=== PATIENT | male | born 1955 | race Caucasian/White ===

== ENCOUNTER 2019-03-26 00:23 | Day surgery (SDC) | payer MEDICARE, SELFPAY ==
[2019-03-09 15:22] VITALS: BMI 26.9
--- NOTE | 2019-03-25 17:14 | PM.SD ---
Same Day Admit/Disch: HPI History of Present Illness Chief complaint: Right Inguinal Hernia Narrative: Fred Salinas is a 64 year old male who was seen in the office with a 3 month history a right inguinal hernia. It is not painful but is bothersome. He is taken to surgery now for repair. [facility] Past Medical History Medical History (Updated 03/26/19 @ 11:34 by Rai Edwards MD) Arthritis Chronic kidney disease, stage 3 (moderate) High cholesterol History of blood clots HTN (hypertension) Hypertensive chronic kidney disease with stage 1 through stage 4 chronic kidney disease, or unspecified chronic kidney disease Surgical History Surgical History History of hernia repair Hx of cholecystectomy (~1999) Family History Family History Father Hypertension Family history of elevated blood lipids Family history of cardiovascular disease, Onset Age: 86 Mother Hypertension Family history of kidney disease Familial primary pulmonary hypertension Grandparent Diabetes mellitus Social History Social History Smoking status: Never smoker Alcohol intake: never Gender identity (if verbalized by the patient): Male Same Day Admit/Disch: Med Pre-admit Medications Home Medications Medication Instructions Recorded Confirmed Type atorvastatin 10 mg tablet 10 mg PO DAILY #90 tablet 01/07/19 03/26/19 Rx losartan 50 mg tablet 50 mg PO DAILY #90 tablet 01/07/19 03/26/19 Rx cholecalciferol (vitamin D3) 2,000 2,000 unit PO DAILY 02/03/19 03/26/19 History unit tablet hydrocodone-acetaminophen 1 - 2 tablet PO Q6H PRN #7 tablet 03/26/19 Rx ibuprofen 600 mg PO Q6H PRN #14 tablet 03/26/19 Rx Exam Const: General: cooperative, comfortable, no acute distress, alert and awake; No confusion Orientation/consciousness: No confusion HENMT: Head: normocephalic, atraumatic, no contusions and no scalp lesions Ears: external ears normal General nose exam: Normal external nose present Face and sinus: face symmetric and dry mucous membranes Mouth: Yes Normal oral and palatal mucosa present and Yes tongue normal Throat: posterior oropharynx normal Eyes: Conjunctivae: conjunctivae normal Sclera: sclerae normal Pupils: Equal, round and reactive pupils present EOM: EOMs intact bilaterally Neck: Neck: normal visual inspection, no lymphadenopathy, trachea midline, supple, nontender and no JVD Thyroid: abnormal thyroid Resp: Effort & Inspection: normal respiratory effort Auscultation: clear to auscultation bilaterally Cardio: Rate: regular rate Rhythm: regular rhythm GI: Inspection: normal to inspection GI Palp: Yes Soft to palpation, No Tenderness to palpation present (GI), No Hepatomegaly present and No Splenomegaly present Auscultation: normal bowel sounds and normoactive bowel sounds : Male General Exam: Yes hernia (Right inguinal bulge, pulses with cough, reducible) Penis: Yes normal penis Scrotum: scrotum normal Testes: Testes normal, no masses and no testicular tenderness Skin: General skin exam: normal color, turgor normal and no erythema Lesions: no lesions Rashes: no rashes Trauma: no lacerations or abrasions Neuro: General: No confusion Cranial nerves: Yes Equal, round and reactive pupils present Motor exam (neuro): Motor abnormalities not present Extrem: General: no clubbing, cyanosis or edema and edema Psych: Affect: normal affect Thought process: Normal thought process present Insight: Good insight present (Psych) DS: Summary Time Spent with Patient Time attestation: Total time spent providing and/or coordinating discharge services: DS: Diagnosis Admitting Diagnosis Admitting Diagnosis: Essential (primary) hypertension Discharge Diagnosis (1) Right inguinal hernia: Code(s): K40.90 - Unilateral i
--- NOTE | 2019-03-26 11:33 | WPDANESEPP ---
Anes - Eval Pre Procedure Procedure: Operation Date: 03/26/19 13:30 Proposed Procedures p Right Inguinal Hernia Repair - Toby Edgar MD Date/Time: 03/26/19 11:33 Pre Op Diagnosis: Right Inguinal Hernia Patient Data Age: 64 Gender: M Height: 1.88 m Weight: 95.25 kg Allergies Allergy/AdvReac Type Severity Reaction Status Date / Time lisinopril AdvReac Unknown cough Verified 03/09/19 15:21 Home Medications Medication Instructions Recorded Confirmed Type atorvastatin 10 mg tablet 10 mg PO DAILY #90 tablet 01/07/19 03/09/19 Rx losartan 50 mg tablet 50 mg PO DAILY #90 tablet 01/07/19 03/09/19 Rx cholecalciferol (vitamin D3) 2,000 2,000 unit PO DAILY 02/03/19 03/09/19 History unit tablet Patient hx anesthesia problems: none Family hx anesthesia problems: none PMFSH Past Medical History Medical History (Updated 03/26/19 @ 11:34 by Rai Edwards MD) Arthritis Chronic kidney disease, stage 3 (moderate) High cholesterol History of blood clots HTN (hypertension) Hypertensive chronic kidney disease with stage 1 through stage 4 chronic kidney disease, or unspecified chronic kidney disease Surgical History Surgical History History of hernia repair Hx of cholecystectomy (~1999) Family History Family History Father Hypertension Family history of elevated blood lipids Family history of cardiovascular disease, Onset Age: 86 Mother Hypertension Family history of kidney disease Familial primary pulmonary hypertension Grandparent Diabetes mellitus Social History Social History Smoking status: Never smoker Alcohol intake: never Gender identity (if verbalized by the patient): Male Exam Day of Procedure 03/26/19 11:33
--- NOTE | 2019-03-26 11:59 | WPDHPUPDATE1 ---
History and Physical Update Update Date/Time: 03/26/19 11:59 History and Physical has been reviewed, including an updated exam of the patient. There are NO changes in the patient's condition. Risks, benefits, and alternatives have been discussed and questions answered. Patient agrees to proceed with procedure.
--- NOTE | 2019-03-26 12:01 | WPDANESEFPP ---
Anes - Eval Final PreProcedure Day of Procedure 03/26/19 12:01 Patient weight: overweight Heart: regular rate and rhythm Lungs: clear to auscultation and normal air movement Airway: Mallampati scale class II Neurological: alert and oriented Last oral intake: >/= 8 hours ASA classification: III Emergent: no Anesthetic plan: proceed Anesthesia type and monitoring: general GIVS Informed Consent: The patient's anesthetic plan and its attendant risks and benefits were discussed with the patient/family/POA. Questions were solicited and answers provided to the satisfaction of the patient/family/POA.
[2019-03-26] MEDS: LACTATED RINGERS 1,000 ML 30 ML IV CONT ×2 (12:30→15:10)
--- NOTE | 2019-03-26 12:44 | P.OP_ITS ---
Procedure Note - Detailed Date of procedure: 03/26/19 Pre-op diagnosis: Right Inguinal Hernia [ ] inguinal hernia Post-op diagnosis: other (Indirect hernia) Procedure performed: Repair of [ ] inguinal hernia with [6] cm Parietex hernia mesh system Description of procedure: The patient was taken to surgery and IV sedation was administered. The [ ] groin and genitalia were prepped and draped. Proposed incision was marked on the skin. Local was infiltrated into the skin and the deeper subcutaneous tissues. Incision was made and deepened through the subcutaneous. Crossing veins were cauterized and divided. Dissection was carried through Harmony's fascia down to the external oblique aponeurosis. The aponeurosis was exposed as was the external ring. Additional local anesthesia was infiltrated deep to the aponeurosis in the area of the spermatic cord and inguinal canal contents. The aponeurosis was opened laterally and extended medially through the external ring. The leaves of the aponeurosis were dissec bhavin free from the spermatic cord. The ileoinguinal nerve was carefully preserved throughout the dissection and was left attached to the spermatic cord. The cord was then mobilized medially on a [place] drain. The cord was dissected back to the internal ring. Dissection was then carried out in the anteromedial spermatic cord. The hernia sac was found and dissected free. The sac was opened so that I could place a finger within the hernia sac and facilitate this dissection. This opening was then closed with a running 3 0 Vicryl suture. The sac was then dissected back to a high dissection. It was dunked into the retroperitoneum. A [6 ] centimeter Parietex [place] was chosen. It was folded to form a plug. It was placed in the defect. The edges were sutured to the transversalis fascia with interrupted 3 0 Vicryl suture. The hernia defect was then partially closed with some additional 3 0 Vicryl suture. Patch was then cut to the appropriate size and placed over the inguinal canal floor. The lateral leaves were passed beyond the cord. The cord and ileoinguinal nerve were then laid over the patch. The external oblique aponeurosis was closed with interrupted 3 0 Vicryl suture. Harmony's fascia was closed with interrupted 3 0 Vicryl suture. The subcutaneous was closed with interrupted 4 0 Vicryl suture. Four 0 Vicryl subcuticular skin sutures were placed. The skin was closed finally with a running 4 0 Monocryl skin suture. The wound was dressed with Exofin surgical adhesive. The patient was awakened and taken to recovery in good condition. Sponge and needle counts were correct x2. Anesthesia: MAC and local (0.5% Marcaine with Exparel) Surgeon: Toby Edgar MD Estimated blood loss (mL): 5 Drains: No Packing: No Pathology: none sent Complications: None Condition: stable Disposition: PACU Findings: Indirect inguinal hernia. No sliding hernia was noted.
[2019-03-26] MEDS: ceFAZolin 2 GM/D5W 50 ML 2 GM/50 ML BAG IVPB (12:58)
--- NOTE | 2019-03-26 14:03 | P.OP_ITS ---
Procedure Note - Detailed Date of procedure: 03/26/19 Pre-op diagnosis: Right Inguinal Hernia Right inguinal hernia Post-op diagnosis: other (Direct inguinal hernia) Procedure performed: Right inguinal hernia repair with 8 centimeter Parietex hernia mesh system Description of procedure: The patient was taken to surgery and IV sedation was administered. The right groin and genitalia were prepped and draped. The pro posed incision was marked on the skin and then local anesthesia was infiltrated into the skin and the deeper subcutaneous tissues. Incision was made and dissection was carried down through Harmony's fascia to the external oblique aponeurosis. Crossing veins were cauterized and divided. The external oblique aponeurosis was then exposed as was the external ring. Additional local anesthetic was infiltrated deep to the aponeurosis in the area of the spermatic cord and inguinal canal contents. We then opened the external oblique aponeurosis laterally and extended this incision medially through the external ring. The leaves of the aponeurosis were freed from the underlying inguinal canal contents. Care was taken not to injure the ileoinguinal nerve which was dissected out and left attached to the spermatic cord. The spermatic cord was then mobilized medially on a [place] drain. It was mobilized back to the internal ring. The direct hernia was dissected free from the spermatic cord. It was dissected back to its neck. The sac was then incised circumferentially just off the neck. It was divided through the transversalis fascia circumferentially. The hernia sac was then dunked into the retroperitoneum. An 8 centimeter Parietex [place] was chosen. It was folded to form a plug. The plug was placed in the defect. The edges were sutured to the transversalis fascia with interrupted 3 0 Vicryl suture. The hernia defect was also partially closed with interrupted 3 0 Vicryl suture. The patch was then cut to the appropriate size. It was placed over the inguinal canal floor with the lateral leaves passing beyond the cord. The cord and ileoinguinal nerve were then laid over the patch. The external oblique aponeurosis was closed with interrupted 3 0 Vicryl suture. Harmony's fascia was closed with interrupted 3 0 Vicryl suture. Four 0 Vicryl subcutaneous and subcuticular skin stitches were placed. The skin was finally closed with a running 4 0 Monocryl skin suture. The wound was dressed with Exofin surgical adhesive. Patient was awakened and taken to recovery in good condition. Sponge and needle counts were correct x2. Implants: 8 cm Parietex hernia mesh system Anesthesia: MAC and local (0.5% Marcaine mixed with Exparel) Surgeon: Toby Edgar MD Industrial Organizational Psychologist: Kelly ROSARIO Estimated blood loss (mL): 5 Drains: No Packing: No Pathology: none sent Complications: None Condition: stable Disposition: PACU Findings: Large direct inguinal hernia
[2019-03-26 14:12] VITALS: BP 117/60; PULSE 61; RESP 24; O2SAT 98
[2019-03-26 14:30] VITALS: BP 129/66; PULSE 56; RESP 14
[2019-03-26 15:00] VITALS: BP 143/71; PULSE 50; RESP 14
[2019-03-26 15:30] VITALS: BP 148/78; PULSE 49; RESP 14
== END 2019-03-26 15:55 | disposition home or self-care (01) ==
PROVIDERS: Visit Provider Surgery
PROC: (CPT 49505; principal; 2019-03-26 13:30)
DX: K40.90 Unilateral inguinal hernia, without obstruction or gangrene, not specified as recurrent (principal); I12.9 Hypertensive chronic kidney disease with stage 1 through stage 4 chronic kidney disease, or unspecified chronic kidney disease; N18.3 Chronic kidney disease, stage 3 (moderate); E78.00 Pure hypercholesterolemia, unspecified; M19.90 Unspecified osteoarthritis, unspecified site; Z86.718 Personal history of other venous thrombosis and embolism
CPT/HCPCS: 49505; A9270; C1781; C9290; J0690; J2250; J2704; J3010; J7120

== ENCOUNTER 2019-10-03 00:53 | Outpatient (CLI) | payer MEDICARE, SELFPAY ==
[2019-10-03 18:11] LABS: SARS-CoV-2 RNA PCR Positive
== END 2019-10-03 00:54 | disposition home or self-care (01) ==
LOC: ANHCOVIDDT 00:56
PROVIDERS: PCP Family Medicine; Visit Provider Internal Medicine Gastroenterology
DX: Z01.812 Encounter for preprocedural laboratory examination (principal); U07.1 COVID-19
CPT/HCPCS: 87635; C9803; U0003

== ENCOUNTER 2019-11-14 07:25 | Outpatient (NON) | payer MEDICARE, SELFPAY ==
[2019-11-14 18:37] LABS: SARS-CoV-2 RNA PCR Positive
== END 2019-11-14 07:26 ==
PROVIDERS: PCP Family Medicine; Visit Provider Family Medicine
DX: U07.1 COVID-19 (principal)
CPT/HCPCS: 87635; C9803; U0003

== ENCOUNTER 2019-11-28 00:33 | Outpatient (CLI) | payer MEDICARE, SELFPAY ==
[2019-11-28 17:59] LABS: SARS-CoV-2 RNA PCR Negative
== END 2019-11-28 00:34 | disposition home or self-care (01) ==
LOC: ANHCOVIDDT 00:34
PROVIDERS: PCP Family Medicine; Visit Provider Internal Medicine Gastroenterology
DX: Z01.812 Encounter for preprocedural laboratory examination (principal); Z20.828 Contact with and (suspected) exposure to other viral communicable diseases
CPT/HCPCS: 87635; C9803; U0003

== ENCOUNTER 2019-12-01 00:13 | Day surgery (SDC) | payer MEDICARE, SELFPAY ==
[2019-09-29 12:48] VITALS: BMI 28.3
--- NOTE | 2019-10-05 07:26 | SUR.PREOP ---
Patient notified of positive COVID results. Instructed to call primary MD for follow up. Patient understands and has no further questions at this time.
[2019-11-24 13:55] VITALS: BMI 29.1
[2019-12-01] MEDS: LACTATED RINGERS 1,000 ML 150 ML IV CONT (07:13)
[2019-12-01 07:18] VITALS: BP 153/63; PULSE 50; RESP 18; TEMP 36.6; O2SAT 98
--- NOTE | 2019-12-01 07:20 | WPDANESEPPF ---
Anes - Initial Pre Proc Eval Procedure: Operation Date: 12/01/19 08:00 Proposed Procedures p Colonoscopy - Juve Ashley MD Date/Time: 12/01/19 07:20 Surgeon: Juve Ashley MD Pre Op Diagnosis: positive cologuard Patient Data Age: 64 Gender: M Height: 6 ft 2 in Weight: 101.9 kg Last Vital Signs Temp 97.9 F 12/01/19 07:18 Pulse 50 L 12/01/19 07:18 Resp 18 12/01/19 07:18 BP 153/63 H 12/01/19 07:18 Pulse Ox 98 12/01/19 07:18 Allergies Allergy/AdvReac Type Severity Reaction Status Date / Time lisinopril AdvReac Unknown cough Verified 12/01/19 07:05 Home Medications Medication Instructions Recorded Confirmed Type cholecalciferol (vitamin D3) 50 2,000 unit PO DAILY 02/03/19 09/29/19 History mcg (2,000 unit) tablet peg 3350-electrolytes 236 240 ml PO Q10M #4000 ml 09/29/19 11/24/19 Rx gram-22.74 gram-6.74 gram-5.86 gram solution losartan 50 mg tablet 50 mg PO DAILY #90 tablet 10/01/19 11/24/19 Rx atorvastatin 10 mg tablet 10 mg PO DAILY #90 tablet 10/02/19 12/01/19 Rx Patient hx anesthesia problems: none Family hx anesthesia problems: none PMFSH Social History Social History Smoking status: Never smoker Alcohol intake: never Living arrangements: with family Gender identity (if verbalized by the patient): Male Spiritual care concerns: No Anes - Eval Final PreProcedure Day of Procedure 12/01/19 07:20 Patient weight: normal Heart: regular rate and rhythm Lungs: clear to auscultation Airway: Mallampati scale class II Neurological: alert and oriented Last oral intake: >/= 8 hours ASA classification: II Emergent: no Anesthetic plan: proceed Anesthesia type and monitoring: general GIVS and standard monitoring Informed Consent: The patient's anesthetic plan and its attendant risks and benefits were discussed with the patient/family/POA. Questions were solicited and answers provided to the satisfaction of the patient/family/POA.
--- NOTE | 2019-12-01 08:14 | PM.HPGS ---
History of Present Illness History of Present Illness Consent: Risks, benefits, and alternatives have been discussed and questions answered. Patient agrees to proceed with procedure. Chief complaint: positive cologuard Narrative: Fred Salinas is a 64 year old male with cologuard positive, last colonoscopy 15 years ago Review of Systems Constitutional: Constitutional: Denies headache(s) and Denies weakness Eyes: Eyes: Denies blurry vision ENT: Reports Normal hearing present, Denies headache(s) and Denies neck pain Cardiovascular: Cardiovascular: Denies chest pain and Denies dyspnea Respiratory: Respiratory: Denies dyspnea Gastrointestinal: Gastrointestinal: Reports no additional gastrointestinal complaints Genitourinary: Genitourinary: Denies dysuria Musculoskeletal: Musculoskeletal: Denies neck pain Integumentary/Breasts: Skin/Breast: Denies dry skin Neurologic: Reports Normal hearing present, Denies headache(s) and Denies weakness Psychiatric: Psychiatric: Denies anxiety Endocrine: Endocrine: Denies change in body appearance Hematologic/Lymphatic: Hematologic/Lymphatic: Denies easy bleeding Allergic/Immunologic: Allergic/Immunologic: Denies urticaria PMFSH Social History Social History Smoking status: Never smoker Alcohol intake: never Living arrangements: with family Gender identity (if verbalized by the patient): Male Spiritual care concerns: No Meds Home Medications and Allergies Home Medications Medication Instructions Recorded Confirmed Type cholecalciferol (vitamin D3) 50 2,000 unit PO DAILY 02/03/19 09/29/19 History mcg (2,000 unit) tablet peg 3350-electrolytes 236 240 ml PO Q10M #4000 ml 09/29/19 11/24/19 Rx gram-22.74 gram-6.74 gram-5.86 gram solution losartan 50 mg tablet 50 mg PO DAILY #90 tablet 10/01/19 11/24/19 Rx atorvastatin 10 mg tablet 10 mg PO DAILY #90 tablet 10/02/19 12/01/19 Rx Allergies Allergy/AdvReac Type Severity Reaction Status Date / Time lisinopril AdvReac Unknown cough Verified 12/01/19 07:05 Vital Signs Vital Signs - 24 hr 12/01/19 07:18 Temperature 97.9 F Pulse Rate 50 L Respiratory Rate 18 Blood Pressure 153/63 H Pulse Oximetry 98 Exam Const: General: comfortable and no acute distress HENMT: General nose exam: Normal nares present Eyes: General: appearance normal, both eyes and all related structures Neck: Neck: no JVD Resp: Auscultation: clear to auscultation bilaterally Cardio: Rate: regular rate Rhythm: regular rhythm GI: Inspection: non-distended GI Palp: Yes Soft to palpation Skin: General skin exam: normal color Neuro: General: gait normal Speech: normal speech Extrem: General: normal to inspection Psych: Mental Status: mental status grossly normal Assessment and Plan Assessment and plan (1) Positive colorectal cancer screening using Cologuard test: Code(s): R19.5 - Other fecal abnormalities Status: Acute Assessment and Plan: will proceed with colonoscopy
[2019-12-01 08:47] VITALS: BP 96/51; PULSE 59; RESP 20; O2SAT 100
[2019-12-01 08:57] VITALS: BP 113/53; PULSE 54; RESP 17; O2SAT 99
[2019-12-01 09:06] VITALS: BP 125/71; PULSE 53; RESP 20; O2SAT 100
== END 2019-12-01 09:10 | disposition home or self-care (01) ==
PROVIDERS: PCP Family Medicine; Visit Provider Internal Medicine Gastroenterology
PROC: 0DJD8ZZ Inspection of Lower Intestinal Tract, Via Natural or Artificial Opening Endoscopic (ICD-10-PCS; CPT 45378; principal; 2019-12-01 08:00)
DX: R19.5 Other fecal abnormalities (principal); D12.2 Benign neoplasm of ascending colon; K64.8 Other hemorrhoids
CPT/HCPCS: 45385; 88305; J2704; J7120

== ENCOUNTER 2019-12-28 15:46 | Outpatient (CLI) | payer MEDICARE, SELFPAY ==
--- NOTE | ~2019-12-28 | US_ITS ---
EXAMINATION: US venous doppler LE RT EXAM DATE: 12/28/2019 16:24 INDICATION: Right leg pain. TECHNIQUE: Multiple grayscale, color flow and Doppler images of the right lower extremity deep venous system were obtained and reviewed. Comparison is made to prior examination from 03/08/2011. FINDINGS: The right common femoral, femoral and profunda veins demonstrate normal color flow, respira tory variation, augmentation and compressibility. Compressibility, color flow confirmed within the r ight popliteal, posterior tibial, peroneal, and greater saphenous veins. IMPRESSION: 1. No right lower extremity deep venous thrombosis. Reviewed, dictated and finalized at location B. W[employer] PERFORMANCE ENGINEER
--- NOTE | ~2019-12-28 | XR_ITS ---
EXAMINATION: XR knee RT min 4V DATE: 12/28/2019 16:30 INDICATION: Right knee pain. TECHNIQUE: 4 views of right knee were obtained. COMPARISON: Right knee radiographs 05/14/2017 FINDINGS: Bone alignment is normal. No fracture. There is mild osteoarthritis of medial and patellofe moral compartments. No knee joint effusion. IMPRESSION: 1. Mild right knee osteoarthritis. Reviewed, dictated and finalized at location A. [employer] WALKER
== END 2019-12-28 15:47 | disposition home or self-care (01) ==
PROVIDERS: PCP Family Medicine; Visit Provider Physician Assistant
DX: M79.604 Pain in right leg (principal); M17.11 Unilateral primary osteoarthritis, right knee
CPT/HCPCS: 73564; 93971

== ENCOUNTER 2020-01-15 15:14 | Outpatient (CLI) | payer MEDICARE, SELFPAY ==
--- NOTE | ~2020-01-15 | US_ITS ---
EXAMINATION: US venous doppler LE EXAM DATE: 01/15/2020 15:53 INDICATION: Bilateral leg edema. TECHNIQUE: Multiple grayscale, color flow and Doppler images of the lower extremity deep venous syste ms bilaterally were obtained and reviewed. Comparison is made to prior examination from 12/28/2019. FINDINGS: Right side: The right common femoral, femoral and profunda veins demonstrate normal color flow, respi ratory variation, augmentation and compressibility. Compressibility, color flow confirmed within the right popliteal, posterior tibial, peroneal, and greater saphenous veins. Left side: The left common femoral, femoral and profunda veins demonstrate normal color flow, respira tory variation, augmentation and compressibility. Compressibility, color flow confirmed within the l eft popliteal, posterior tibial, peroneal, and greater saphenous veins. IMPRESSION: 1. No lower extremity deep venous thrombosis bilaterally. Reviewed, dictated and finalized at location A. MASON APPRENTICE
== END 2020-01-15 15:15 | disposition home or self-care (01) ==
PROVIDERS: PCP Family Medicine; Visit Provider Physician Assistant
DX: R60.0 Localized edema (principal)
CPT/HCPCS: 93970

== ENCOUNTER 2020-03-29 08:44 | Outpatient (CLI) | payer MEDICARE, SELFPAY ==
--- NOTE | 2020-03-30 10:54 | WPDHOMESLEEP ---
Sleep Study - Home Unattended Date of Study: 03/29/20 Ordering Provider: Travon Bolaños MD Interpreting Physician: Heavenly Owen MD Home Sleep Study Type: Apnea Link Air Height: 1.88 m Weight: 113.398 kg Body Mass Index: 32.1 Neck Circumference (inches): 17 [place]: 13 Reason for Sleep Study Hypersomnia *Nocturnal polysomnogram October 17, 2006 showed no evidence of cyst obstructive sleep apnea with an AHI of 0.8, poor sleep efficiency with sleep fragmentation and heavy snoring Sleep History Fred Salinas is a 65-year-old man with frequent loud snoring. He has chronic diastolic heart failure and hypertension. He recently developed swelling in his legs, frequent pounding heartbeat and fatigue. He has some intermittent chest pain. He recently started a new blood pressure medicine per his health care social worker Dr. Bolaños. he frequently snores and it is loud enough that others complain about it. He frequently has heartburn, belching or coughing at night. He frequently awakens from sleep feeling short of breath. He occasionally has trouble sleeping with a cold. He occasionally wakes up gasping for breath at night. He frequently has breathing problems at night observed by others. He rarely sweats excessively at night. He frequently notices his heart pounding or beating irregularly at night. He occasionally falls asleep during the day, never involuntarily. This does occur rarely occur while driving. He does not fall asleep while exerting physical effort. He does not have loss of muscle tone with strong emotion. 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 there is no paralysis on waking or falling asleep. Rarely either vivid dreamlike scenes upon awakening or falling asleep. There is no fear regarding going to sleep. He rarely has nightmares, rarely remember his dreams. He occasionally has racing thoughts, occasionally feels sad depressed and anxious. He occasionally has muscular tension. He occasionally notices parts of his body jerking. He frequently kicks at night. He frequently has crawling and aching feelings in his legs and frequently has leg pain at night. He occasionally has morning jaw pain. He never grind his teeth during sleep. He frequently is bothered by pain during the day. He occasionally is bothered by pain at night, frequently wakes up feeling stiff in the morning with sore achy muscles. He rarely wakes up pain in the neck and spine. he has dizziness, fatigue, sexual problems With long-term erectile dysfunction, palpitations and headaches. For the last few months he has wanted to get home early due to excessive fatigue. Normal bedtime is between 9 and 10:00 p.m. falling asleep within 10 minutes, waking 3-5 times at night to urinate. He stays awake on average 5-10 minutes. He wakes in the morning at 5:00 a.m.. We can schedule is similar. He may wake as late as 7:00 a.m. he takes naps in the afternoon or evening. A short nap is not refreshing. He is drowsy in the morning for 2 hours or longer. He feels better in the morning compared to other times of day. Habits: never smoked tobacco. Caffeine 3 cups of coffee and occasional diet soda daily, no alcohol or recreational drugs. [facility] Past Medical History Medical History (Updated 03/30/20 @ 12:01 by Heavenly Owen MD) Arthritis Chronic kidney disease, stage 3 (moderate) Diastolic congestive heart failure High cholesterol History of blood clots LLE DVT 2009 History of cardiac disorder HTN (hypertension) Hypertensive chronic kidney disease with stage 1 through stage 4 chronic kidney disease, or unspecified chronic kidney disease Positive colorectal cancer screening using Cologuard test Surgical History Surgical History History of hernia repair Hx of cholecystectomy (~1999) Family History Family History (Reviewed 03/30/20 @ 11:13 by Leonidas Mejias
[2020-03-30 12:04] VITALS: BMI 32.1
== END 2020-03-29 08:45 | disposition home or self-care (01) ==
LOC: ANHCSM 08:50
PROVIDERS: PCP Family Medicine; Visit Provider Internal Medicine Cardiovascular Disease
DX: G47.30 Sleep apnea, unspecified (principal); R06.83 Snoring; R40.0 Somnolence
CPT/HCPCS: 95806

== ENCOUNTER → 2020-03-30 08:30 | Outpatient (CLI) | payer MEDICARE, SELFPAY ==
--- NOTE | ~2020-03-30 | MR_ITS ---
EXAMINATION: MR knee RT wo con DATE: 03/30/2020 09:10 INDICATION: Right knee pain and swelling. Other tear of medial meniscus, current injury, right knee, initial encounter. TECHNIQUE: Magnetic resonance imaging (MRI) of the right knee was performed without intravenous contr ast. Sequences included axial PD-weighted FS FSE, coronal PD-weighted FSE and PD-weighted FS FSE, sag ittal PD-weighted FSE, and sagittal T2-weighted FS FSE. COMPARISON: Right knee radiographs 03/24/2020 FINDINGS: Medial compartment: There is a complex tear involving body and posterior horn of medial meniscus. There is shallow partia l-thickness cartilage loss of tibial condyle. There is full-thickness cartilage loss of femoral condy le involving the central and medial articular surface with cortical irregularity and moderate subchon dral edema-like marrow signal intensity. There is partial-thickness cartilage loss of femoral condyle involving the lateral and posterior articular surface. Lateral compartment: There is upper surface horizontal tear of anterior horn of lateral meniscus. There is cartilage surfa ce irregularity of tibial condyle and femoral condyle. Patellofemoral compartment: There is deep partial thickness cartilage loss of patellar medial facet. There is focal deep cartilag e fissuring of patellar lateral facet. There is shallow partial-thickness cartilage loss of median ri dge. There is deep partial thickness cartilage loss of medial trochlea with mild subchondral edema-li ke marrow signal intensity. There is shallow partial-thickness cartilage loss of central and lateral trochlea. Ligaments and tendons: The anterior and posterior cruciate ligaments are normal. Edema around the medial collateral ligament is likely from the medial meniscus tear. There are changes of prior sprains of medial collateral lig ament and fibular collateral ligament characterized increased signal intensity proximally. There is m ild patellar tendinopathy. Fluid: There is a small knee joint effusion. There is a large Ridley cyst with thin septations. There is mild prepatellar and moderate superficial infrapatellar bursitis. There is subcutaneous edema about the k nee. IMPRESSION: 1. Severe chondrosis of medial compartment, moderate chondrosis of patellofemoral compartment, and mi ld chondrosis of lateral compartment. 2. Tears of medial and lateral menisci. 3. Small knee joint effusion. 4. Large Ridley's cyst. Reviewed, dictated and finalized at location A. [employer] SUPERINTENDENT IMPRESSION: 1. Severe chondrosis of medial compartment, moderate chondrosis of patellofemor al compartment, and mild chondrosis of lateral compartment. 2. Tears of medial and lateral menisci. 3. Small knee joint effusion. 4. Large Ridley's cyst.
== END ==
PROVIDERS: PCP Family Medicine; Visit Provider Orthopaedic Surgery
DX: S83.241A Other tear of medial meniscus, current injury, right knee, initial encounter (principal); M22.2X1 Patellofemoral disorders, right knee; S83.281A Other tear of lateral meniscus, current injury, right knee, initial encounter; M25.461 Effusion, right knee; M71.21 Synovial cyst of popliteal space [Baker], right knee
CPT/HCPCS: 73721

== ENCOUNTER 2020-04-29 14:31 | Outpatient (CLI) | payer MEDICARE, SELFPAY | END 2020-04-29 14:32 | disposition home or self-care (01) | LOC: ANHCOVIDVC 14:31 | PROVIDERS: PCP Family Medicine | DX: Z23 Encounter for immunization (principal) | CPT/HCPCS: 0001A; 91300 ==

== ENCOUNTER → 2020-05-04 02:47 | Outpatient (CLI) | payer MEDICARE, SELFPAY ==
[2020-05-04 17:20] LABS: SARS-CoV-2 RNA PCR Negative
== END ==
PROVIDERS: PCP Family Medicine; Visit Provider Internal Medicine Critical Care Medicine
DX: Z01.812 Encounter for preprocedural laboratory examination (principal); Z20.822 Contact with and (suspected) exposure to COVID-19
CPT/HCPCS: C9803; U0003; U0005

== ENCOUNTER 2020-05-06 09:10 | Outpatient (CLI) | payer MEDICARE, SELFPAY ==
--- NOTE | 2020-05-20 10:40 | WPDSLEEPSTUD ---
Sleep Study Date of Study: 05/06/20 Ordering Provider: Kervin Wall MD Interpreting Physician: Heavenly Owen MD Sleep Study Type: CPAP Titration Height: 1.85 m Weight: 113.469 kg Body Mass Index: 33.0 Neck Circumference (inches): 16 Lutz: 13 Reason for Sleep Study Home sleep test Mar 29, 2020 with mild obstructive sleep apnea with an AHI 5.4, lowest saturation 90%, and mild snoring; he has hypertension and chronic diastolic congestive heart failure, now presents for a CPAP titration. Sleep History Fred Salinas is a 65-year-old man with frequent loud snoring. He has chronic diastolic heart failure and hypertension. He recently developed swelling in his legs, frequent pounding heartbeat and fatigue. He has some intermittent chest pain. He started a new blood pressure medicine per his dedicated regional driver Dr. Bolaños. He frequently snores and it is loud enough that others complain about it. He frequently has heartburn, belching or coughing at night. He frequently awakens from sleep feeling short of breath. He occasionally has trouble sleeping with a cold. He occasionally wakes up gasping for breath at night. He frequently has breathing problems at night observed by others. He rarely sweats excessively at night. He frequently notices his heart pounding or beating irregularly at night. He occasionally falls asleep during the day, never involuntarily. This does occur rarely occur while driving. He does not fall asleep while exerting physical effort. He does not have loss of muscle tone with strong emotion. 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 There is no paralysis on waking or falling asleep, and only rarely vivid dreamlike scenes upon awakening or falling asleep. There is no fear regarding going to sleep. He rarely has nightmares, rarely remember his dreams. He occasionally has racing thoughts, occasionally feels sad, depressed, or anxious. He occasionally has muscular tension. He occasionally notices parts of his body jerking. He frequently kicks at night. He frequently has crawling and aching feelings in his legs and frequently has leg pain at night. He occasionally has morning jaw pain. He never grind his teeth during sleep. He frequently is bothered by pain during the day. He occasionally is bothered by pain at night, frequently wakes up feeling stiff in the morning with sore achy muscles. He rarely wakes up pain in the neck and spine. he has dizziness, fatigue, sexual problems With long-term erectile dysfunction, palpitations and headaches. For the last few months he has wanted to get home early due to excessive fatigue. Normal bedtime is between 9:00 and 10:00 p.m. falling asleep within 10 minutes, waking 3-5 times at night to urinate. He stays awake on average 5-10 minutes. He wakes in the morning at 5:00 a.m. The weekend schedule is similar. He may wake as late as 7:00 a.m. He takes naps in the afternoon or evening. A short nap is not refreshing. He is drowsy in the morning for 2 hours or longer. He feels better in the morning compared to other times of day. Habits: Never smoked tobacco. Caffeine 3 cups of coffee and occasional diet soda daily, no alcohol or recreational drugs. [facility] Past Medical History Medical History Arthritis Chronic kidney disease, stage 3 (moderate) Diastolic congestive heart failure High cholesterol History of blood clots LLE DVT 2009 History of cardiac disorder HTN (hypertension) Hypertensive chronic kidney disease with stage 1 through stage 4 chronic kidney disease, or unspecified chronic kidney disease Positive colorectal cancer screening using Cologuard test Surgical History Surgical History History of hernia repair Hx of cholecystectomy (~1999) Family History Family History (Reviewed 05/20/20 @ 10:43
[2020-05-20 10:59] VITALS: BMI 33.0
== END 2020-05-06 09:11 | disposition home or self-care (01) ==
LOC: ANHCSM 09:10
PROVIDERS: PCP Family Medicine; Visit Provider Internal Medicine Pulmonary Disease
DX: G47.33 Obstructive sleep apnea (adult) (pediatric) (principal); N18.30 Chronic kidney disease, stage 3 unspecified; I12.9 Hypertensive chronic kidney disease with stage 1 through stage 4 chronic kidney disease, or unspecified chronic kidney disease; Z79.899 Other long term (current) drug therapy
CPT/HCPCS: 95811

== ENCOUNTER 2020-05-20 14:31 | Outpatient (CLI) | payer MEDICARE, SELFPAY | END 2020-05-20 14:32 | disposition home or self-care (01) | LOC: ANHCOVIDVC 14:31 | PROVIDERS: PCP Family Medicine | DX: Z23 Encounter for immunization (principal) | CPT/HCPCS: 0002A; 91300 ==

== ENCOUNTER → 2020-06-25 01:59 | Outpatient (CLI) | payer MEDICARE, SELFPAY ==
[2020-06-25 19:16] LABS: SARS-CoV-2 RNA PCR Negative
== END ==
PROVIDERS: PCP Family Medicine; Visit Provider Internal Medicine Cardiovascular Disease
DX: Z01.812 Encounter for preprocedural laboratory examination (principal); Z20.822 Contact with and (suspected) exposure to COVID-19
CPT/HCPCS: C9803; U0003; U0005

== ENCOUNTER 2020-06-28 01:27 | Day surgery (SDC) | payer MEDICARE, SELFPAY ==
[2020-06-27 13:01] VITALS: BMI 33.4
[2020-06-28] VITALS (18 sets, daily range): BP systolic 89–138; BP diastolic 48–83; PULSE 40–70; RESP 16–22; TEMP 35.7–35.8; O2SAT 97–100; BMI 32.8
[2020-06-28] MEDS: SODIUM CHLORIDE 0.9% IV 500 ML 150 ML IV CONT (07:30)
--- NOTE | 2020-06-28 07:44 | SUR.PREOP ---
Patient to have 1.5-2 hours of hydration therapy prior to today's scheduled R/LHC. NS @ 150 ml/hr started at 0730 by Jessy Barth RN.
--- NOTE | 2020-06-28 09:21 | P.SEDATION_ITS ---
Moderate Sedation Note-Pt Data Patient Data Allergies Allergy/AdvReac Type Severity Reaction Status Date / Time lisinopril AdvReac Unknown cough Verified 06/28/20 07:30 Home Medications Medication Instructions Recorded Confirmed Type amlodipine 10 mg tablet 10 mg PO DAILY 03/18/20 06/27/20 History atorvastatin 10 mg tablet See Rx Instructions .ROUTE 03/21/20 06/27/20 Rx .COMPLEX #90 tablet furosemide 40 mg tablet 40 mg PO QAM 04/25/20 06/27/20 History spironolactone 25 mg tablet 25 mg PO DAILY 06/20/20 06/27/20 History losartan 100 mg PO DAILY 06/27/20 06/27/20 History Current Medications: Active Medications Sodium Chloride (Normal Saline Iv) 500 mls @ 150 mls/hr IV CONT .Q3H20M GLENDY Sedation/Anesthesia: No previous sedation/anesthesia problems (including family history). [facility] Past Medical History Medical History (Updated 06/20/20 @ 14:41 by Lauryn Clifford PA-C) Arthritis Chronic kidney disease, stage 3 (moderate) Diastolic congestive heart failure Hepatitis C antibody test negative (01/08/17) High cholesterol History of blood clots LLE DVT 2009 History of cardiac disorder HTN (hypertension) Hypertensive chronic kidney disease with stage 1 through stage 4 chronic kidney disease, or unspecified chronic kidney disease Positive colorectal cancer screening using Cologuard test Surgical History Surgical History History of hernia repair Hx of cholecystectomy (~1999) Family History Family History Father Hypertension Family history of elevated blood lipids Family history of cardiovascular disease, Onset Age: 86 Mother Hypertension Family history of kidney disease Familial primary pulmonary hypertension Grandparent Diabetes mellitus Social History Social History Smoking status: Never smoker Second hand tobacco smoke exposure: No Alcohol intake: never Substance use: never Living arrangements: with family Gender identity (if verbalized by the patient): Male Sexual Orientation (if Verbalized by the Patient): Straight or Heterosexual Spiritual care concerns: No Mod Sed Physical Exam Physical Exam Pre Procedural Exam: Normal: Airway Hours since solid foods: 10 Hours since liquid intake: 10 Internal Medicine - PN: Obj Da Vital Signs Vital Signs: Vital Signs - 24 hr 06/28/20 07:30 Temperature 35.8 C L Pulse Rate 50 L Respiratory Rate 16 Blood Pressure 128/62 Pulse Oximetry 100 Meds/Results Medications: Active Medications Generic Name Dose Route Start Last Admin Trade Name Freq PRN Reason Stop Dose Admin Sodium Chloride 500 mls @ 150 mls/hr 06/28/20 06:45 Normal Saline Iv IV CONT .Q3H20M GLENDY ASA Classification/Sedation ASA Classification/Sedation Risks: Risks, benefits and alternatives explained and patient/family accepted plan for sedation. Patient re-evaluated immediately prior to sedation.
--- NOTE | 2020-06-28 09:23 | WPDHPUPDATE1 ---
History and Physical Update Update Date/Time: 06/28/20 09:23 History and Physical has been reviewed, including an updated exam of the patient. There are NO changes in the patient's condition. Risks, benefits, and alternatives have been discussed and questions answered. Patient agrees to proceed with procedure.
--- NOTE | 2020-06-28 10:26 | WPDCARDPROC ---
Cardiac Cath Procedure Note Date of procedure:: 06/28/20 Performing physician:: Travon Bolaños MD Procedure Procedure note:: RIGHT AND LEFT HEART CATHETERIZATION AND CORONARY ANGIOGRAM REPORT DATE OF PROCEDURE: 06/28/2020 INDICATION FOR PROCEDURE: Dyspnea on exertion, chest discomfort BRIEF CLINICAL HISTORY: 65-year-old male with hypertension, CHF with preserved ejection fraction, CKD, Mild LENO, DJD , history of COVID-19 infection. Patient has been experiencing dyspnea on exertion associated with episodes of chest discomfort. His MPI from 04/13/2020 showed normal LVEF, and normal Perfusion imaging. Echo from 02/11/2020 showed normal LVEF, grade 2 diastolic dysfunction, severe left atrial enlargement. Due to patient's ongoing symptoms of dyspnea on exertion and chest discomfort, right and left heart catheterization was recommended. Benefits and risks of the procedure were discussed with the patient in depth, and informed consent was obtained prior to the procedure. Risks of the procedure include but are not limited to vascular complications including groin hematoma, retroperitoneal bleed, vessel perforation; periprocedural AR, cardiac arrhythmias, stroke, contrast induced nephropathy, cardiac arrhythmias, pulmonary hemorrhage and . After discussing all the benefits, risks and alternatives, patient was willing to proceed with the procedure. PROCEDURES PERFORMED: 1. Left heart catheterization- Selective left and right coronary angiogram; LV pressure measurement and hemodynamic assessment 2. Right heart catheterization with hemodynamic assessment 3. Moderate sedation-CPT code 50389 MODERATE SEDATION: Midazolam 1 mg; fentanyl 25 mcg; Start time 0936 , Stop time 1015 ; Total wwvw-qm-waoe time 39 minutes; Jessy Barth RN was trained observer for moderate sedation. ACCESS SITE: Right common femoral artery and vein PROCEDURE NOTE: After obtaining informed consent, patient was brought to catheterization lab and prepped and draped in a usual sterile manner. After local anesthesia with lidocaine, right common femoral artery access was taken with micropuncture needle followed by insertion of a 5 [place] sheath. Right common femoral venous access was taken with micropuncture needle followed by insertion of a 7 [place] sheath. Right heart catheterization was performed using C [place]-Andie catheter. Pressures were measured in the right atrium, right ventricle, pulmonary artery, pulmonary capillary. O2 saturations were taken from the femoral artery, right atrium, right ventricle, pulmonary artery. Cardiac output was measured using both thermodilution and Meagan's method. After completion of right heart catheterization, attention was shifted to the left heart catheterization. Selective left and right coronary angiogram was performed using 5 [place] JL4 and JR4 catheters respectively. Orthogonal views were taken. Next, a 5 [place] pigtail catheter was advanced in the LV cavity and was flushed with normal saline. LV pressure measurement was performed. Left ventriculogram was not performed to spare the patient from contrast burden. The gradient across the aortic valve was measured on the pullback of the catheter. Manual pressure will be used for local hemostasis of femoral arterial and venous access site. Patient tolerated procedure well without any immediate procedure related complications. FINDINGS: LEFT HEART CATHETERIZATION: LEFT MAIN CORONARY: the left main coronary is a medium caliber vessel with minor irregularities. The vessel bifurcates into LAD and left circumflex branches. LEFT ANTERIOR DESCENDING ARTERY: The LAD is a medium caliber vessel, tapers distally and wraps LV apex. There is about 30-40% stenosis in the proximal segment; and about 40-50% tubular stenosis in the proximal-mid segment. The remainder of upper mid segment of LAD has mild diffuse disease. The diagonal branches are small caliber vessels. LEFT CIRCUMFLEX
[2020-06-28] MEDS: SODIUM CHLORIDE 0.9% IV 1,000 ML 125 ML IV CONT (10:50)
[2020-06-28] MEDS: ATROPINE SULFATE 1 MG/10 ML SYRINGE (11:16)
--- NOTE | 2020-06-28 12:45 | PC.NURSE ---
1116 - Manual pressure to RFA in progress. HR was ranging 38-60 while compressing groin. BP dropped to 85/52. Atropine .5mg given. Dr Bolaños aware. HR improved to 70's and maintained 60-70 range. BP improved as well.
--- NOTE | 2020-06-28 12:52 | PC.NURSE ---
1215 - PT unable to void per urinal - abernathy catheter placed with >400ml clear yellow urine returned. Pt resting much more comfortably at this time.
[2020-06-28] MEDS: ACETAMINOPHEN 500 MG TABLET PO (13:11)
--- NOTE | 2020-06-28 13:12 | PC.NURSE ---
1310 - pt c/o back pain - tylenol given per Dr Bolaños's order
--- NOTE | 2020-06-28 13:21 | SUR.PHASEII ---
0845- IVF infusing at 150ml /hr until [address] Bolaños the lower extrem edema noted. verbal order to decrease IVF to 25 ml/hr until procedure started. Pt to metallurgical lab technician at 0900.
--- NOTE | 2020-06-28 17:32 | SUR.PHASEII ---
Finn catheter d/c'd at 1630 - pt able to void without difficulty. IV d/c'd with catheter intact. No redness or swelling at the site. Right femoral artery vein and artery site remains clean dry and intact without signs or redness, swelling or hematoma. Discharge instructions reviewed with patient and with stated understanding. Discharged to home via personal vehicle with driving.
== END 2020-06-28 17:40 | disposition home or self-care (01) ==
PROVIDERS: PCP Family Medicine; Visit Provider Internal Medicine Cardiovascular Disease
PROC: 4A023N8 Measurement of Cardiac Sampling and Pressure, Bilateral, Percutaneous Approach (ICD-10-PCS; CPT 93453; principal; 2020-06-28 08:30)
DX: I25.10 Atherosclerotic heart disease of native coronary artery without angina pectoris (principal); R93.1 Abnormal findings on diagnostic imaging of heart and coronary circulation; R06.09 Other forms of dyspnea; R07.89 Other chest pain; I13.0 Hypertensive heart and chronic kidney disease with heart failure and stage 1 through stage 4 chronic kidney disease, or unspecified chronic kidney disease; I50.30 Unspecified diastolic (congestive) heart failure; N18.30 Chronic kidney disease, stage 3 unspecified; G47.33 Obstructive sleep apnea (adult) (pediatric); Z86.16 Personal history of COVID-19; E78.00 Pure hypercholesterolemia, unspecified; M19.90 Unspecified osteoarthritis, unspecified site
CPT/HCPCS: 93460; A9270; C1769; C1887; C1894; J0461; J1644; J2250; J3010; J7030; J7040

== ENCOUNTER 2020-07-08 13:47 | Outpatient (CLI) | payer MEDICARE, SELFPAY ==
--- NOTE | ~2020-07-08 | CT_ITS ---
EXAMINATION: CT diagnostic chest wo con EXAM DATE: 07/08/2020 14:03 INDICATION: CUMMINS, hx of 2019 novel coronavirus disease . TECHNIQUE: Spiral CT of the chest without contrast. Axial, coronal and sagittal images of the chest were reviewed. Coronal maximum intensity pixel images of chest reviewed. The dose-length product ( DLP) for this examination was 547.68 mGy-cm. The exposure was tailored according to patient size (au to mA exposure control), and iterative reconstruction (ASIR) was used as additional dose reduction te chnique. Comparison is made to prior examination from 05/21/2010. FINDINGS: There is moderate to large gastroesophageal hiatal hernia with adjacent segmental right lo wer lobe atelectasis. Subsegmental left lower lobe atelectasis. Left basilar calcified granuloma and left hilar calcified lymph nodes from prior granulomatous process. There is mild emphysema. No eviden ce of interstitial lung disease. Elevated left hemidiaphragm, possible paralysis. There are no pleur al or pericardial effusions. Tracheobronchial tree is patent. There is no mediastinal, hilar or a xillary lymphadenopathy. There is no pneumothorax. Heart normal in size. There is mild to moder ate coronary arterial calcification, arterial sclerosis. There are cholecystectomy clips. Sclerotic region lateral aspect right 4th rib unchanged, probably bone island. There is mild to moderate mid t horacic dextroscoliosis. IMPRESSION: 1. Moderate to large gastroesophageal hiatal hernia with adjacent atelectasis. 2. Elevated left hemidiaphragm, possible paralysis. Consider sniff test. 3. Mild emphysema. Reviewed, dictated and finalized at location A.
== END 2020-07-08 13:48 | disposition home or self-care (01) ==
PROVIDERS: PCP Family Medicine; Visit Provider Internal Medicine Cardiovascular Disease
DX: R06.00 Dyspnea, unspecified (principal); Z86.16 Personal history of COVID-19; K44.9 Diaphragmatic hernia without obstruction or gangrene; J43.9 Emphysema, unspecified
CPT/HCPCS: 71250

== ENCOUNTER 2020-07-29 15:52 | Outpatient (CLI) | payer MEDICARE, SELFPAY ==
--- NOTE | ~2020-07-29 | US_ITS ---
US renal BI DATE: 07/29/2020 16:39 INDICATION: Abnormal kidney function tests TECHNIQUE: Real-time imaging of kidneys and urinary bladder COMPARISON: 07/14/[address] abdomen pelvis FINDINGS: The right kidney measures 11.2 cm approximate length, left kidney 11.6 cm. No hydronephrosis of either kidney is evident. Approximately 2 cm upper pole and approximately 2 cm lower pole left renal cysts. The urinary bladder is unremarkable. IMPRESSION: Left renal cysts No hydronephrosis Reviewed, dictated and finalized at Location A. Reviewed, dictated and finalized at location A.
== END 2020-07-29 15:53 | disposition home or self-care (01) ==
LOC: ANHIMG 15:57
PROVIDERS: PCP Family Medicine; Visit Provider Internal Medicine Nephrology
DX: R94.4 Abnormal results of kidney function studies (principal); N28.1 Cyst of kidney, acquired
CPT/HCPCS: 76775

== ENCOUNTER 2021-09-29 10:30 | Outpatient (CLI) | payer MEDICARE, SELFPAY ==
--- NOTE | ~2021-09-29 | XR_ITS ---
XR knee LT min 4V 09/29/2021 10:50 INDICATION: Left knee pain PROCEDURE: 4 views left knee COMPARISON: No prior studies for comparison. FINDINGS: Fracture, dislocation or subluxation is not identified. No significant joint effusion. The soft tissues appear within normal limits. No foreign bodies are identified. IMPRESSION: 1: NO ACUTE BONE OR JOINT ABNORMALITY IDENTIFIED. Reviewed, dictated and finalized at location A.
--- NOTE | ~2021-09-29 | XR_ITS ---
XR hip LT 2V w AP pelvis DATE: 09/29/2021 10:51 INDICATION: Left hip pain TECHNIQUE: AP pelvis. AP and lateral views of left hip. COMPARISON: None FINDINGS: Osteopenia. No fracture or dislocation, avascular necrosis or bone destruction of the left hip. Joint spaces are symmetric and relatively well preserved. The pubic symphysis and sacroiliac joints are intact. No pelvic fracture or bone destruction. Surgical clips from ventral abdominal wall hernia repair are noted. IMPRESSION: Osteopenia. No left hip fracture or dislocation or other significant abnormality. Reviewed, dictated and finalized at location B. IMPRESSION: Osteopenia. No left hip fracture or dislocation or other significan t abnormality.
== END 2021-09-29 10:31 | disposition home or self-care (01) ==
PROVIDERS: PCP Family Medicine; Visit Provider Family Medicine
DX: M25.552 Pain in left hip (principal); M25.562 Pain in left knee; M85.89 Other specified disorders of bone density and structure, multiple sites
CPT/HCPCS: 73502; 73564

== ENCOUNTER → 2021-10-10 14:15 | Outpatient (CLI) | payer MEDICARE, SELFPAY ==
--- NOTE | ~2021-10-10 | DEXA_ITS ---
Bone Density Report Name: ASHA REILLY Age: 66 Sex: Male Ethnicity: White Date of : 1955 Indication: SCREENING FOR OSTEOPOROSIS M81.0 Referring Provider: VALE, VERONICA GAFFNEY Study: Bone densitometry was performed. Exam Date: October 10, 2021 Accession number: [id number] Bone Density: Region BMD T-score Z-score Classification AP Spine (L1-L4) 0.980 -1.0 -0.2 Normal Femoral Neck (Left) 0.618 -2.3 -1.2 Osteopenia Total Hip (Left) 0.875 -1.0 -0.5 Normal Femoral Neck (Right) 0.647 -2.1 -1.0 Osteopenia Total Hip (Right) 0.908 -0.8 -0.2 Normal Total Hip Mean 0.892 -0.9 -0.4 Normal World Health Organization criteria for BMD impression classify patients as: Normal (T-score at or above -1.0), Osteopenia (T-score between -1.0 and -2.5), or Osteoporosis (T-score at or below -2.5). 10-year Fracture Risk(1): Major Osteoporotic Fracture 8.2% Hip Fracture 2.2% Reported Risk Factors: [place] (), Neck BMD=0.618, BMI=34.1 (1) FRAX(R) Version 3.08. Fracture probability calculated for an untreated patient. Fracture probability may be lower if the patient has received treatment. Clinical Information Provided by Patient: Patient maximum height was 74.0 No regular weight bearing exercise Drinks caffeinated beverages Impression: The patient has low bone mass, based on the Left Femoral Neck T-score. The patient has an estimated ten-year risk of hip fracture of 2.2% and an estimated ten-year risk of major fracture of 8.2%, based on the WHO FRAX algorithm. Discussion: BONE DENSITY IS LOW AT ONE OR MORE SKELETAL SITES. This patient's lowest T-score is low at one or more skeletal sites. It meets the World Health Organization's (WHO) criteria for ?low bone mass? (T-score between -1.0 and -2.5). The patient's 10-year risk of fracture as calculated by FRAX is less than the threshold where pharmacological therapy is recommended by the National Osteoporosis Foundation (NOF). However, all treatment decisions require clinical judgment and consideration of individual patient factors, including patient preferences, comorbidities, previous drug use, risk factors not captured in the FRAX model (e.g., frailty, falls, vitamin D deficiency, increased bone turnover, interval significant decline in bone density) and possible under or overestimation of fracture risk by FRAX. The patient should follow a healthful lifestyle (good nutrition with adequate calcium and vitamin D, and appropriate weight-bearing exercise). Follow-Up: Consider repeating this study in 2 to 3 years to reassess this patient's status, or sooner if there is some new clinical indication. Reported by: PARVIZ on 10/10/2021 4:09:00 PM. Reviewed, dictated and finalized at location AFer VINES
== END ==
PROVIDERS: PCP Family Medicine; Visit Provider Nurse Practitioner
DX: M81.0 Age-related osteoporosis without current pathological fracture (principal); M85.89 Other specified disorders of bone density and structure, multiple sites
CPT/HCPCS: 77080

== ENCOUNTER 2021-11-17 19:42 | Emergency (ER) | payer MEDICARE, SELFPAY ==
[2021-11-17] VITALS (16 sets, daily range): BP systolic 93–166; BP diastolic 52–113; PULSE 70–85; RESP 15–28; TEMP 36.7; O2SAT 92–100
--- NOTE | ~2021-11-17 | CT_ITS ---
EXAMINATION: CTA chest abdomen pelvis DATE: 11/17/2021 22:30 CDT INDICATION: Shortness of breath and low back pain. Nausea and vomiting. TECHNIQUE: Computed tomographic angiography (CTA) of the chest, abdomen, and pelvis was performed wit hout and with 100 mL Omnipaque-350 intravenous contrast. The dose-length product was 1707.37 mGy-cm. Maximum intensity projection 3D-reconstructions of the aorta and other arteries were constructed by shade palacios technologist on a separate workstation. COMPARISON: CT dated 07/08/2020. FINDINGS: CHEST CTA: Moderate size hiatal hernia. No significant pleural or pericardial effusion. No large central pulmona ry embolism. No evidence for aortic aneurysm or dissection. No thoracic lymphadenopathy. There are ca lcified left hilar lymph nodes, consistent with chronic granulomatous disease. No endobronchial lesio ns. There is left basilar atelectasis. No pneumothorax. There is mild lumbar and thoracic spondylosis . ABDOMEN AND PELVIS CTA: Fatty infiltration of the liver. Small subcentimeter cyst of the liver. The spleen, pancreas, adrenal glands are unremarkable. There are small subcentimeter hypodensities of the right kidney, most likel y benign cysts. There are left renal cysts, largest measuring 3.5 cm. Status post cholecystectomy. Th ere is residual barium throughout the colon. There is evidence for previous ventral hernia repair. Th ere are bladder diverticula bilaterally. Bladder is distended. Small fat-containing inguinal hernias. No significant vascular abnormality. The celiac axis, SMA, renal arteries and RAND are patent. No lym phadenopathy. IMPRESSION: 1. No acute abnormality of the chest, abdomen or pelvis. 2: Moderate size hiatal hernia. 3: Bladder diverticula. 4: Small bilateral fat-containing inguinal hernias. Reviewed, dictated and finalized at location A.
--- NOTE | 2021-11-17 20:04 | ECG_ITS ---
Measurements Intervals [place] Rate: 72 P: 42 HI: 193 QRS: 16 QRSD: 150 T: 15 QT: 407 QTc: 446 Interpretive Statements SINUS RHYTHM RIGHT BUNDLE BRANCH BLOCK BASELINE ARTIFACT- I, II, III, AVR, AVL, AVF ABNORMAL ECG COMPARED TO ECG 03/12/2019 14:57:57 HEART RATE HAS INCREASED Electronically Signed On 11-17-2021 21:12:06 CDT by Yakov Izquierdo D.O.
[2021-11-17 20:35] LABS: Basophils Percent Auto 0.4 % (0.2-1.2); Eosinophils Absolute Auto 0.1 K/mm3 (0-0.3); Hematocrit 46.2 % (42.0-52.0); Hemoglobin 15.1 g/dL (14.0-18.0); Immature Granulocyte Absolute 0.03 K/mm3 (0.00-0.031); Immature Granulocyte Percent A 0.3 % (0-0.5); Lymphocytes Absolute Auto 1.41 K/mm3 (0.9-3.2); Lymphocytes Percent Auto 12.9 % (18.3-44.2); Mean Corpuscular HGB Conc 32.7 g/dl (32-36); Mean Corpuscular Hemoglobin 32.7 pg (26-34); Mean Platelet Volume 10.7 fl (7.4-10.4); Monocytes Absolute Auto 0.8 K/mm3 (0.1-0.6); Monocytes Percent Auto 7.3 % (2.6-8.5); Neutrophils Absolute Auto 8.6 K/mm3 (1.3-6.7); Neutrophils Percent Auto 78.1 % (45.5-73.1); Platelet Count Result 165 k/mm3 (150-375); Red Blood Count 4.62 M/mm3 (4.6-6.20); Red Cell Distribution Width 12.8 % (11.5-14.5)
[2021-11-17 20:58] LABS: Alanine Aminotransferase 25 U/L (6-50); Albumin Level 4.9 g/dL (3.5-5.1); Alkaline Phosphatase 88 U/L (38-126); Anion Gap 15 mmol/L (8-16); Aspartate Amino Transferase 25 U/L (17-59); Bilirubin,Total 1.8 mg/dL (0.2-1.3); Blood Urea Nitrogen 40 mg/dL (9-20); Calcium 9.9 mg/dL (8.4-10.2); Carbon Dioxide 21 mmol/L (22-30); Chloride 104 mmol/L (98-107); Estimated CRCL calculation 67 ml/min; Estimated Glomerular Filt Rate 55; Glucose 92 mg/dL (65-110); Lipase 115 U/L (23-300); Potassium 4.3 mmol/L (3.4-5.0); Sodium 140 mmol/L (137-145)
[2021-11-17 20:59] LABS: Appearance Urine Clear (Clear); Bilirubin Urine Negative (Negative); Blood Urine Negative (Negative); Color Urine Yellow (Yellow); Glucose Urine UA Negative (Negative); Ketones Urine Negative (Negative); Leukocyte Esterase Ur Negative LEU/UL (Negative); Nitrate Urine Negative (Negative); Protein Urine Negative (Negative); Specific Grav Ur 1.015 (1.001-1.035); Urobilinogen Urine 0.2 mg/dL (<2.0); pH Urine 5.5 (5.0-9.0)
[2021-11-17 21:02] LABS: Add Urine Microscopic? NO
--- NOTE | 2021-11-17 21:10 | PC.NURSE ---
The patient did state that he did have a hx of blood clots
--- NOTE | 2021-11-17 22:15 | PC.NURSE ---
This RN tried to get an IV and blood cultures. not able to obtain access at this time.
--- NOTE | 2021-11-17 22:20 | PC.NURSE ---
Patient down in CT
[2021-11-17] MEDS: MORPHINE SULFATE (*CRX) 4 MG/ML INJ IV PUSH (23:23)
[2021-11-17] MEDS: ONDANSETRON INJ 4 MG/2 ML VIAL IV PUSH (23:24)
[2021-11-17] MEDS: ceFAZolin 2 GM/D5W 50 ML 2 GM/50 ML BAG IVPB (23:24)
[2021-11-17] MEDS: LACTATED RINGERS 1,000 ML 999 ML IV CONT (23:24)
[2021-11-18] VITALS (10 sets, daily range): BP systolic 98–124; BP diastolic 50–84; PULSE 66–75; RESP 15–24; O2SAT 91–100
[2021-11-18 01:25] LABS: INR 1.2; Prothrombin Time 14.8 Seconds (11.1-14.7)
[2021-11-18 01:26] LABS: Partial Thromboplastin Time 28.2 SECONDS (22.3-36.8)
[2021-11-18 01:30] LABS: D Dimer 0.48 ug/mL (<0.48)
--- NOTE | 2021-11-18 02:03 | ED.GENADULT ---
HPI - General Adult General Chief complaint: Unspecified Stated complaint: Cellulitis of leg blocked valve in leg Time Seen by Provider: 11/17/21 21:01 History of Present Illness HPI narrative: 66-year-old male states that he has redness and pain in his right leg, he had been treated for similar symptoms with antibiotics month ago with total resolution of his symptoms for about 20 days, but today noticed that the redness was coming back. He also had some nausea and low back pain. He is concerned because he has had a small bowel obstruction in the past and has had similar symptoms like this. Related Data Home Medications Medication Instructions Recorded Confirmed furosemide 40 mg tablet (Lasix) 40 mg PO QAM 04/25/20 10/26/21 spironolactone 25 mg tablet 25 mg PO DAILY 06/20/20 10/26/21 losartan 100 mg tablet 100 mg PO DAILY 11/08/20 10/26/21 Allergies Allergy/AdvReac Type Severity Reaction Status Date / Time lisinopril AdvReac Unknown cough Verified 11/17/21 19:44 Review of Systems Review of Systems: CONST: No fever. HEENT: No sore throat C/V: No chest pain RESP: Mild shortness of breath GI: Reports nausea and low back pain : No dysuria. M/S: Right leg pain SKIN: Red rash on right leg NEURO: [No headache or focal numbness or weakness] PSYCH: [No depression] [facility] Past Medical History Medical History Arthritis Chronic kidney disease, stage 3 (moderate) Diastolic congestive heart failure Hepatitis C antibody test negative (01/08/17) High cholesterol History of blood clots LLE DVT 2009 History of cardiac disorder HTN (hypertension) Hypertensive chronic kidney disease with stage 1 through stage 4 chronic kidney disease, or unspecified chronic kidney disease Positive colorectal cancer screening using Cologuard test Surgical History Surgical History History of hernia repair Hx of cholecystectomy (~1999) Family History Family History Father Hypertension Family history of elevated blood lipids Family history of cardiovascular disease, Onset Age: 86 Mother Hypertension Family history of kidney disease Familial primary pulmonary hypertension Grandparent Diabetes mellitus Social History Social History Smoking status: Never smoker Second hand tobacco smoke exposure: No Alcohol intake: never Substance use: never Gender identity (if verbalized by the patient): Male Sexual Orientation (if Verbalized by the Patient): Straight or Heterosexual Spiritual care concerns: No Exam Narrative: EXAMINATION OF ORGAN SYSTEMS/BODY AREAS: Constitutional: Vital signs per nursing GENERAL: Appears to be uncomfortable HEAD: Normal with no signs of head trauma. EYES: EOMI, conjunctiva normal ENT: Hearing grossly intact LUNGS: Nonlabored breathing. HEART: [Regular rate and rhythm] ABD: [Soft], [nontender to palpation] EXT: Normal range of motion, there is erythema around the right lower leg extending from about 3 inches above the ankle to about 3 inches below the knee; somewhat tender. No swelling of the leg. Normal DP pulses bilaterally SKIN: Erythematous rash on right lower leg NEURO: [Alert and oriented x 3. No gross focal sensory or strength deficits.] PSYCH: Normal affect Course Vital Signs Vital signs: Vital Signs Temperature 98.1 F 11/17/21 20:00 Pulse Rate 75 11/17/21 20:00 Respiratory Rate 18 11/17/21 20:00 Blood Pressure 166/113 H 11/17/21 20:00 Pulse Oximetry 100 11/17/21 20:00 Oxygen Delivery Room Air 11/17/21 20:00 Temperature 98.1 F 11/17/21 20:00 Pulse Rate 69 11/18/21 01:45 Respiratory Rate 19 11/18/21 01:45 Blood Pressure 110/78 11/18/21 01:45 Pulse Oximetry 93 11/18/21 01:45 Oxygen Delivery Room Air 11/17/21 20:00
== END 2021-11-18 02:54 | disposition home or self-care (01) ==
PROVIDERS: Emergency Provider Emergency Medicine; PCP Family Medicine
DX: L03.115 Cellulitis of right lower limb (principal); M54.50 Low back pain, unspecified; I13.0 Hypertensive heart and chronic kidney disease with heart failure and stage 1 through stage 4 chronic kidney disease, or unspecified chronic kidney disease; N18.30 Chronic kidney disease, stage 3 unspecified; I50.30 Unspecified diastolic (congestive) heart failure; E78.00 Pure hypercholesterolemia, unspecified; Z86.718 Personal history of other venous thrombosis and embolism
CPT/HCPCS: 36415; 71275; 74174; 80053; 81003; 83690; 85025; 85380; 85610; 85730; 87040; 93005; 96365; 96375; 99284; J0690; J2270; J2405; J7120; Q9967

== ENCOUNTER 2021-11-28 16:24 | Inpatient (IN) | payer MEDICARE, SELFPAY ==
[2021-11-28] VITALS (8 sets, daily range): BP systolic 129–157; BP diastolic 61–69; PULSE 50–87; RESP 14–21; TEMP 36.2–36.8; O2SAT 94–99; BMI 34.1
--- NOTE | ~2021-11-28 | US_ITS ---
US arterial ankle brachial ind INDICATION: Leg discoloration. TECHNIQUE: Segmental pressures and plethysmographic and Doppler waveforms of the brachial and lower e xtremity arteries were obtained. COMPARISON: None. FINDINGS: Right and left brachial artery pressures of 122 mm Hg and 147 mm Hg, respectively, are concordant (no rmal difference <= 30 mmHg). The right ankle-brachial index (ELIN) is 1.05 (normal >= 0.9-1.0). The right great toe-brachial index (TBI) is 0.72 (normal >= 0.60). The left ELIN is 1.02. The left TBI is 0.79. IMPRESSION: 1. Normal bilateral ankle and toe brachial indices. Reviewed, dictated and finalized at location A.
--- NOTE | ~2021-11-28 | US_ITS ---
EXAMINATION: US venous doppler LE RT DATE: 11/30/2021 13:44 INDICATION: Lower limb swelling. TECHNIQUE: Grayscale ultrasound images without and with compression and Doppler ultrasound images of the right lower extremity veins were obtained. COMPARISON: Ultrasound 01/15/2020 FINDINGS: The visualized portions of right common femoral vein, profunda (deep) femoral vein, femoral vein, pop liteal vein, peroneal veins, posterior tibial veins, and greater saphenous vein outflow are patent. IMPRESSION: 1. No deep venous thrombosis. Reviewed, dictated and finalized at location A.
--- NOTE | 2021-11-28 19:44 | ED.GENADULT ---
HPI - General Adult General Chief complaint: Extremity Problem,Nontraumatic Stated complaint: IV Antibiotics from PCP Time Seen by Provider: 11/28/21 19:25 History of Present Illness HPI narrative: 66-year-old male with history of cellulitis presenting the emergency department for evaluation of worsening cellulitis. Patient states he initially developed the right lower extremity cellulitis around September 25. Patient was on a course of Keflex and states that this did improve. Patient states that the symptoms worsened he was reevaluated on 11/18 and once again started on Keflex. Patient still taking Keflex. Patient states that while he did begin to improve he had worsening of the lower extremity swelling yesterday and today. Patient states he has not missed any doses. Patient does have history of high cholesterol and hypertension. Patient is not diabetic. Related Data Home Medications Medication Instructions Recorded Confirmed spironolactone 25 mg tablet 25 mg PO DAILY 06/20/20 11/28/21 losartan 100 mg tablet 100 mg PO DAILY 11/08/20 11/28/21 furosemide 40 mg tablet (Lasix) 40 mg PO DAILY 11/23/21 11/28/21 atorvastatin 10 mg tablet 10 mg PO HS 11/28/21 11/28/21 Allergies Allergy/AdvReac Type Severity Reaction Status Date / Time lisinopril AdvReac Unknown cough Verified 11/28/21 15:44 Review of Systems Review of Systems: CONSTITUTIONAL: Denies fever, chills, or sweats. EYES: Denies visual changes, redness, or discharge. ENT: Denies rhinorrhea, congestion, sore throat, or otalgia. CARDIOVASCULAR: Denies chest pain, palpitations, or edema. RESPIRATORY: Denies cough or dyspnea. GASTROINTESTINAL: Denies abdominal pain, nausea, vomiting, or diarrhea. GENITOURINARY: Denies dysuria or hematuria. SKIN: See HPI MUSCULOSKELETAL: Denies back pain, joint pain, or myalgia. NEUROLOGIC: Denies headache, numbness, or weakness. [facility] Past Medical History Medical History Arthritis Chronic kidney disease, stage 3 (moderate) Diastolic congestive heart failure Hepatitis C antibody test negative (01/08/17) High cholesterol History of blood clots LLE DVT 2009 History of cardiac disorder HTN (hypertension) Hypertensive chronic kidney disease with stage 1 through stage 4 chronic kidney disease, or unspecified chronic kidney disease Positive colorectal cancer screening using Cologuard test Surgical History Surgical History History of hernia repair Hx of cholecystectomy (~1999) Family History Family History Father Hypertension Family history of elevated blood lipids Family history of cardiovascular disease, Onset Age: 86 Mother Hypertension Family history of kidney disease Familial primary pulmonary hypertension Grandparent Diabetes mellitus Social History Social History Smoking status: Never smoker Second hand tobacco smoke exposure: No Alcohol intake: never Substance use: never Gender identity (if verbalized by the patient): Male Sexual Orientation (if Verbalized by the Patient): Straight or Heterosexual Spiritual care concerns: No Exam Narrative: APPEARANCE: Well appearing, no pain, no distress, well-nourished. HEAD: normocephalic, atraumatic. EYES: PERRLA/EOMI, conjunctivae clear. NOSE: Normal no drainage THROAT: Pharynx clear, no exudate. NECK: Supple. No adenopathy, no masses. RESPIRATORY: Airway patent, respirations nonlabored. Clear to auscultation bilaterally, no rales, rhonchi, wheezing. CARDIOVASCULAR: Regular rate and rhythm without murmurs rubs or gallops. ABDOMINAL: Soft, nontender, nondistended, normal bowel sounds MUSCULOSKELETAL: Moves all extremities. Strength/ROM intact, No edema, No calf tenderness. NEURO: Alert. Cranial nerves II through XII int
[2021-11-28 19:58] LABS: Basophils Absolute Auto 0.1 K/mm3 (0.0-0.1); Basophils Percent Auto 0.8 % (0.2-1.2); Eosinophils Absolute Auto 0.1 K/mm3 (0-0.3); Eosinophils Percent Auto 1.3 % (0-4.4); Hematocrit 41.4 % (42.0-52.0); Hemoglobin 13.9 g/dL (14.0-18.0); Immature Granulocyte Absolute 0.05 K/mm3 (0.00-0.031); Immature Granulocyte Percent A 0.8 % (0-0.5); Lymphocytes Absolute Auto 1.23 K/mm3 (0.9-3.2); Lymphocytes Percent Auto 19.2 % (18.3-44.2); Mean Corpuscular HGB Conc 33.6 g/dl (32-36); Mean Corpuscular Hemoglobin 32.6 pg (26-34); Mean Platelet Volume 10.1 fl (7.4-10.4); Monocytes Absolute Auto 0.6 K/mm3 (0.1-0.6); Monocytes Percent Auto 9.5 % (2.6-8.5); Neutrophils Absolute Auto 4.4 K/mm3 (1.3-6.7); Neutrophils Percent Auto 68.4 % (45.5-73.1); Platelet Count Result 223 k/mm3 (150-375); Red Blood Count 4.27 M/mm3 (4.6-6.20); Red Cell Distribution Width 12.6 % (11.5-14.5); White Blood Count 6.4 K/mm3 (4.5-10.0)
[2021-11-28 20:09] LABS: Alanine Aminotransferase 28 U/L (6-50); Albumin Level 4.5 g/dL (3.5-5.1); Alkaline Phosphatase 81 U/L (38-126); Anion Gap 8 mmol/L (8-16); Aspartate Amino Transferase 25 U/L (17-59); Bilirubin,Total 1.3 mg/dL (0.2-1.3); Blood Urea Nitrogen 41 mg/dL (9-20); Calcium 9.6 mg/dL (8.4-10.2); Carbon Dioxide 28 mmol/L (22-30); Chloride 102 mmol/L (98-107); Estimated CRCL calculation 67 ml/min; Estimated Glomerular Filt Rate 55; Glucose 92 mg/dL (65-110); Sodium 138 mmol/L (137-145)
--- NOTE | 2021-11-28 20:53 | PM.IMHP ---
H&P: HPI History of Present Illness Date/Time: 11/28/21 20:53 Chief Complaint: right lower extremity redness Narrative: This is a 66-year-old male with past medical history significant for chronic kidney disease, hypertension, dyslipidemia. patient presents to the emergency room due to right lower extremity tenderness, redness, swelling, for the last 2 weeks or so had been taking antibiotics in the outpatient setting however noted worsening of all of these in the last day or so denies any fevers, rigors, chills, night sweats, nausea, vomiting, diarrhea, abdominal pain, cough, sputum production, poor appetite, , wounds. Preliminary workup has been essentially nonrevealing. Review of Systems Review of Systems: Right lower extremity worsening swelling tenderness and redness Constitutional: Constitutional: Denies chills, Denies fever(s), Denies malaise, Denies night sweats, Denies poor appetite and Denies weakness Eyes: Eyes: Denies change in vision ENT: Denies dysphagia, Denies vertigo, Denies dizziness and Denies odynophagia Cardiovascular: Cardiovascular: Denies chest pain, Denies syncope, Denies irregular heart rhythm, Denies lightheadedness and Denies palpitations Respiratory: Respiratory: Denies chest congestion and Denies cough Gastrointestinal: Gastrointestinal: Denies abdominal pain, Denies dyspepsia, Denies heartburn, Denies diarrhea, Denies nausea and Denies vomiting Genitourinary: Genitourinary: Denies dysuria Musculoskeletal: Comments: right lower extremity swelling tenderness r Integumentary/Breasts: Skin/Breast: Reports swelling, Reports erythema, Reports skin pain and Reports skin swelling Comments: right lower extremity Neurologic: Denies vertigo, Denies dizziness, Denies focal weakness and Denies Sensory deficit (Neuro) Psychiatric: Psychiatric: Reports no additional psychiatric complaints and Reports as per HPI Endocrine: Endocrine: Denies cold intolerance, Denies fatigue, Denies flushing, Denies heat intolerance, Denies polyphagia, Denies polydipsia and Denies palpitations Hematologic/Lymphatic: Hematologic/Lymphatic: Reports no additional hematologic/lymphatic complaints and Reports as per HPI Allergic/Immunologic: Allergic/Immunologic: Reports no additional allergic/immunologic complaints and Reports as per HPI PMFSH Past Medical History Medical History Arthritis Chronic kidney disease, stage 3 (moderate) Diastolic congestive heart failure Hepatitis C antibody test negative (01/08/17) High cholesterol History of blood clots LLE DVT 2009 History of cardiac disorder HTN (hypertension) Hypertensive chronic kidney disease with stage 1 through stage 4 chronic kidney disease, or unspecified chronic kidney disease Positive colorectal cancer screening using Cologuard test Surgical History Surgical History History of hernia repair Hx of cholecystectomy (~1999) Family History Family History Father Hypertension Family history of elevated blood lipids Family history of cardiovascular disease, Onset Age: 86 Mother Hypertension Family history of kidney disease Familial primary pulmonary hypertension Grandparent Diabetes mellitus Social History Social History Smoking status: Never smoker Second hand tobacco smoke exposure: No Alcohol intake: never Substance use: never Gender identity (if verbalized by the patient): Male Sexual Orientation (if Verbalized by the Patient): Straight or Heterosexual Spiritual care concerns: No Meds Home Medications and Allergies Home Medications Medication Instructions Recorded Confirmed Type spironolactone 25 mg tablet 25 mg PO DAILY 06/20/20 11/28/21 History losartan 100 mg tablet 100 mg PO
--- NOTE | 2021-11-28 23:41 | PC.NURSE ---
This patient, Fred Salinas, was admitted to Medical Room 342-01. Patient/family oriented to hospital policies and general routines including ID bracelet, bed and alarms, visiting hours, pain management, procedures, bathroom and other care routines, personal items, smoking policy, room service/diet, and visiting hours. Information on how to activate the Rapid Response Team has been discussed. Patient/Family are encouraged to report perceived risks to care and to ask questions if they do not understand what they are told or what they should do.
[2021-11-29] MEDS: ACETAMINOPHEN 500 MG TABLET 1000 MG PO (02:31)
[2021-11-29 03:11] VITALS: RESP 19
[2021-11-29 05:44] LABS: Estimated CRCL calculation 72 ml/min; Estimated Glomerular Filt Rate 60
[2021-11-29 06:00] VITALS: BP 128/56; PULSE 50; RESP 16; TEMP 36.6; O2SAT 100
[2021-11-29] MEDS: CALCIUM CARBONATE (OSCAL) 500 MG TABLET PO (08:46)
[2021-11-29] MEDS: FUROSEMIDE 40 MG TABLET PO (08:47)
[2021-11-29] MEDS: CHOLECALCIFEROL 1,000 UNITS TABLET 2000 UNITS PO (08:47)
[2021-11-29] MEDS: LOSARTAN POTASSIUM 100 MG TABLET PO (08:47)
[2021-11-29] MEDS: SPIRONOLACTONE 25 MG TABLET PO (08:47)
[2021-11-29 14:00] VITALS: BP 120/52; PULSE 53; RESP 18; TEMP 36.5; O2SAT 97
--- NOTE | 2021-11-29 17:55 | PM.IMPN ---
Progress Note: A&P Assessment and Plan (1) Cellulitis: Code(s): L03.90 - Cellulitis, unspecified Status: Acute (2) Chronic kidney disease, stage 3 (moderate): Qualifiers: Chronic kidney disease stage 3 subtype: stage 3a (GFR 45-59) Qualified Code(s): N18.31 - Chronic kidney disease, stage 3a Code(s): N18.3 - Chronic kidney disease, stage 3 (moderate) Status: Chronic (3) Obstructive sleep apnea: Code(s): G47.33 - Obstructive sleep apnea (adult) (pediatric) Status: Chronic (4) Diastolic congestive heart failure: Qualifiers: Heart failure chronicity: chronic Qualified Code(s): I50.32 - Chronic diastolic (congestive) heart failure Code(s): I50.30 - Unspecified diastolic (congestive) heart failure Status: Chronic Plan 11/28/21 ?admit to regular medical floor ?started on clindamycin ?await cultures ?supportive care ?BUN and creatinine at patient's baseline ?continue to monitor ?unclear if use of CPAP at nighttime ?appears euvolemic ?continue to monitor ?daily intake and output 11/29/21 afebrile continue vanc and Zosyn right lower extremity venous ultrasound continue home medications blood cultures pending Subjective Date/time seen: 11/29/21 17:55 Interval history: patient reports improvement in his pain swelling and redness of his right lower extremity. Patient reports that he was treated with IV antibiotics an outpatient but failed to improve. Prior to receiving IV therapy. He denies having had an ultrasound since onset of this cellulitis. Review of Systems Review of Systems: All systems reviewed & are unremarkable except as noted in HPI and below Exam Narrative: GEN: NAD, at bedside, cooperative HEENT: NCAT, MMM, EOMI Neck: no JVD Heart: S1S2 RRR Lungs: CTA B/l Abd: soft, NT, ND, bowel sounds normoactive Ext: moves all, no cyanosis, no clubbing, Bilateral lower extremity edema at ankles extending up the right leg to knee Neuro: normal cognition, moves all extremities equally, alert orient x3, no focal deficits appreciated Psych: mood and affect congruent Objective Data Vital Signs Vital Signs: Vital Signs - 24 hr 11/28/21 19:36 11/28/21 19:46 11/28/21 20:31 Temperature Pulse Rate 50 L 53 L 53 L Respiratory Rate 14 18 18 Blood Pressure 136/61 142/64 H 129/62 Pulse Oximetry 99 97 96 Oxygen Delivery 11/28/21 21:16 11/28/21 21:31 11/28/21 23:36 Temperature Pulse Rate 51 L 51 L Respiratory Rate 20 15 Blood Pressure 133/63 131/65 Pulse Oximetry 94 99 Oxygen Delivery Room Air 11/28/21 23:58 11/28/21 23:58 11/28/21 23:00 Temperature 98.2 F Pulse Rate 87 70 Respiratory Rate 21 H 18 Blood Pressure 136/68 Pulse Oximetry 97 97 99 Oxygen Delivery Room Air CPAP 11/29/21 03:11 11/29/21 06:00 11/29/21 14:00 Temperature 97.8 F 97.7 F Pulse Rate 50 L 53 L Respiratory Rate 19 16 18 Blood Pressure 128/56 L 120/52 L Pulse Oximetry 100 97 Oxygen Delivery CPAP Intake/Output Intake/Output: Intake & Output 11/26/21 11/27/21 11/28/21 11/29/21 23:59 23:59 23:59 23:59 Intake Total 50 1910 Output Total 2400 Balance 50 -490 Meds/Results Medications: Active Medications Generic Name Dose Route Start Last Admin Trade Name Freq PRN Reason Stop Dose Admin Acetaminophen 1,000 mg 11/28/21 23:44 11/29/21 02:31 Acetaminophen 500 Mg Tablet PO 1,000 mg Q6H PRN Administration Mild Pain (1-3) or Fever Atorvastatin Calcium 10 mg 11/29/21 21:00 Atorvastatin 10 Mg Tablet PO HS GLENDY Calcium Carbonate 500 mg 11/29/21 09:00 11/29/21 08:46 Calcium Carbonate (Oscal) 500 Mg Tablet PO 500 mg QAM GLENDY Administration Furosemide 40 mg 11/29/21 09:00 11/29/21 08:47 Furosemide 40 Mg Tablet PO 40 mg DAILY GLENDY Administration Piperacillin/Tazobactam/Dextrose 3.375 gm in 50 mls @ 100 mls/hr 11/29/21 03:00 11/29/21 14:41
[2021-11-29] MEDS: ATORVASTATIN 10 MG TABLET PO (20:08)
[2021-11-29] MEDS: HEPARIN SODIUM 5,000 UNITS/ML VIAL 5000 UNITS SUB-Q (20:08)
[2021-11-29 21:28] VITALS: BP 109/59; PULSE 52; RESP 18; TEMP 36.4; O2SAT 95
[2021-11-29 23:25] VITALS: PULSE 51; RESP 21; O2SAT 93
[2021-11-30 05:09] VITALS: BP 121/58; PULSE 48; RESP 18; TEMP 36.6; O2SAT 96
[2021-11-30 05:22] LABS: Basophils Absolute Auto 0.1 K/mm3 (0.0-0.1); Basophils Percent Auto 0.7 % (0.2-1.2); Eosinophils Absolute Auto 0.1 K/mm3 (0-0.3); Eosinophils Percent Auto 1.8 % (0-4.4); Hemoglobin 13.2 g/dL (14.0-18.0); Immature Granulocyte Absolute 0.06 K/mm3 (0.00-0.031); Immature Granulocyte Percent A 0.9 % (0-0.5); Lymphocytes Absolute Auto 1.47 K/mm3 (0.9-3.2); Lymphocytes Percent Auto 21.8 % (18.3-44.2); Mean Corpuscular HGB Conc 33.8 g/dl (32-36); Mean Corpuscular Hemoglobin 32.6 pg (26-34); Mean Corpuscular Volume 96.3 fl (80-100); Mean Platelet Volume 10.3 fl (7.4-10.4); Monocytes Absolute Auto 0.6 K/mm3 (0.1-0.6); Monocytes Percent Auto 8.3 % (2.6-8.5); Neutrophils Absolute Auto 4.5 K/mm3 (1.3-6.7); Neutrophils Percent Auto 66.5 % (45.5-73.1); Platelet Count Result 189 k/mm3 (150-375); Red Blood Count 4.05 M/mm3 (4.6-6.20); Red Cell Distribution Width 12.6 % (11.5-14.5); White Blood Count 6.7 K/mm3 (4.5-10.0)
[2021-11-30] MEDS: HEPARIN SODIUM 5,000 UNITS/ML VIAL 5000 UNITS SUB-Q ×3 (05:48→21:00)
[2021-11-30 05:56] LABS: Anion Gap 10 mmol/L (8-16); Blood Urea Nitrogen 29 mg/dL (9-20); CRP 0.5 mg/dL (<1.0); Calcium 9.4 mg/dL (8.4-10.2); Carbon Dioxide 23 mmol/L (22-30); Chloride 106 mmol/L (98-107); Estimated CRCL calculation 62 ml/min; Estimated Glomerular Filt Rate 51; Glucose 95 mg/dL (65-110); Magnesium 2.3 mg/dL (1.6-2.3); Potassium 4.2 mmol/L (3.4-5.0); Sodium 139 mmol/L (137-145)
[2021-11-30] MEDS: LOSARTAN POTASSIUM 100 MG TABLET PO (09:04)
[2021-11-30] MEDS: FUROSEMIDE 40 MG TABLET PO (09:04)
[2021-11-30] MEDS: SPIRONOLACTONE 25 MG TABLET PO (09:04)
[2021-11-30] MEDS: CALCIUM CARBONATE (OSCAL) 500 MG TABLET PO (09:04)
[2021-11-30] MEDS: CHOLECALCIFEROL 1,000 UNITS TABLET 2000 UNITS PO (09:04)
--- NOTE | 2021-11-30 10:06 | PCDIET ---
Student Nurse, Saturnino Martinez, documentation and charting reviewed on this patient
--- NOTE | 2021-11-30 13:14 | PM.IMPN ---
Progress Note: A&P Assessment and Plan (1) Cellulitis: Code(s): L03.90 - Cellulitis, unspecified Status: Acute (2) Chronic kidney disease, stage 3 (moderate): Qualifiers: Chronic kidney disease stage 3 subtype: stage 3a (GFR 45-59) Qualified Code(s): N18.31 - Chronic kidney disease, stage 3a Code(s): N18.3 - Chronic kidney disease, stage 3 (moderate) Status: Chronic (3) Obstructive sleep apnea: Code(s): G47.33 - Obstructive sleep apnea (adult) (pediatric) Status: Chronic (4) Diastolic congestive heart failure: Qualifiers: Heart failure chronicity: chronic Qualified Code(s): I50.32 - Chronic diastolic (congestive) heart failure Code(s): I50.30 - Unspecified diastolic (congestive) heart failure Status: Chronic Plan 11/28/21 ?admit to regular medical floor ?started on clindamycin ?await cultures ?supportive care ?BUN and creatinine at patient's baseline ?continue to monitor ?unclear if use of CPAP at nighttime ?appears euvolemic ?continue to monitor ?daily intake and output 11/29/21 afebrile continue vanc and Zosyn right lower extremity venous ultrasound continue home medications blood cultures pending 11/30/21 US negative x DVT remains on VAnc Zosyn and improving surprisingly CRP is 0.5 cont current care dc planning soon Subjective Date/time seen: 11/30/21 13:14 pt doing ok no overnight events RLE still red, US results shared w pt Review of Systems Review of Systems: All systems reviewed & are unremarkable except as noted in HPI and below Exam Narrative: GEN: NAD, at bedside, cooperative HEENT: NCAT, MMM, EOMI Neck: no JVD Heart: S1S2 RRR Lungs: CTA B/l Abd: soft, NT, ND, bowel sounds normoactive Ext: moves all, no cyanosis, no clubbing, ankles erythema and edema extending up the right leg to just above ankle Neuro: normal cognition, moves all extremities equally, alert orient x3, no focal deficits appreciated Psych: mood and affect congruent Objective Data Vital Signs Vital Signs: Vital Signs - 24 hr 11/29/21 14:00 11/29/21 21:28 11/30/21 05:09 Temperature 97.7 F 97.6 F 97.9 F Pulse Rate 53 L 52 L 48 L Respiratory Rate 18 18 18 Blood Pressure 120/52 L 109/59 L 121/58 L Pulse Oximetry 97 95 96 Oxygen Delivery 11/29/21 23:25 11/30/21 09:15 11/30/21 11:40 Temperature Pulse Rate 51 L Respiratory Rate 21 H Blood Pressure Pulse Oximetry 93 Oxygen Delivery CPAP Room Air Room Air Intake/Output Intake/Output: Intake & Output 11/27/21 11/28/21 11/29/21 11/30/21 23:59 23:59 23:59 23:59 Intake Total 50 2710 590 Output Total 2400 825 Balance 50 310 -235 Meds/Results Medications: Active Medications Generic Name Dose Route Start Last Admin Trade Name Freq PRN Reason Stop Dose Admin Acetaminophen 1,000 mg 11/28/21 23:44 11/29/21 02:31 Acetaminophen 500 Mg Tablet PO 1,000 mg Q6H PRN Administration Mild Pain (1-3) or Fever Atorvastatin Calcium 10 mg 11/29/21 21:00 11/29/21 20:08 Atorvastatin 10 Mg Tablet PO 10 mg HS GLENDY Administration Calcium Carbonate 500 mg 11/29/21 09:00 11/30/21 09:04 Calcium Carbonate (Oscal) 500 Mg Tablet PO 500 mg QAM GLENDY Administration Furosemide 20 mg 12/01/21 09:00 Furosemide 20 Mg Tablet PO DAILY GLENDY Heparin Sodium (Porcine) 5,000 units 11/29/21 22:00 11/30/21 05:48 Heparin Sodium 5,000 Units/Ml Vial SUB-Q 5,000 units Q8HR GLENDY Administration Piperacillin/Tazobactam/Dextrose 3.375 gm in 50 mls @ 100 mls/hr 11/29/21 03:00 11/30/21 09:33 Zosyn 3.375 Gm/D5w 50ml Pm IVPB Infused Q6H GLENDY Infusion Vancomycin HCl 1,750 mg in 500 mls @ 250 mls/hr 11/29/21 16:00 11/30/21 10:28 Vancomycin 1,750 Mg/D5w 500 Ml IVPB 250 mls/hr Q18H GLENDY Administration Losartan Potassium 100 mg 11/29/21 09:00 11/30/21 09:04 Losartan Potassium 100 Mg Tablet PO 100 mg
[2021-11-30 15:08] VITALS: BP 120/69; PULSE 50; RESP 16; TEMP 36.7; O2SAT 99
[2021-11-30] MEDS: ATORVASTATIN 10 MG TABLET PO (21:00)
[2021-11-30 22:00] VITALS: BP 132/63; PULSE 54; RESP 20; TEMP 36.4; O2SAT 99
[2021-12-01 00:03] VITALS: PULSE 61; RESP 18; O2SAT 94
[2021-12-01 02:57] VITALS: PULSE 52; RESP 15; O2SAT 96
[2021-12-01 04:24] LABS: Vancomycin Trough 16.2 ug/mL (10.0-20.0)
--- NOTE | 2021-12-01 04:47 | PC.NURSE ---
notified pharmacy of vancomycin trough 16.2. Morning dose held.
[2021-12-01 06:25] VITALS: BP 127/62; PULSE 58; RESP 18; TEMP 36.3; O2SAT 100
[2021-12-01] MEDS: HEPARIN SODIUM 5,000 UNITS/ML VIAL 5000 UNITS SUB-Q ×3 (07:03→21:43)
[2021-12-01] MEDS: LOSARTAN POTASSIUM 100 MG TABLET PO (09:01)
[2021-12-01] MEDS: FUROSEMIDE 20 MG TABLET PO (09:01)
[2021-12-01] MEDS: CALCIUM CARBONATE (OSCAL) 500 MG TABLET PO (09:01)
[2021-12-01] MEDS: SPIRONOLACTONE 25 MG TABLET PO (09:01)
[2021-12-01] MEDS: CHOLECALCIFEROL 1,000 UNITS TABLET 2000 UNITS PO (09:01)
--- NOTE | 2021-12-01 13:54 | PM.IMPN ---
Progress Note: A&P Assessment and Plan (1) Cellulitis: Code(s): L03.90 - Cellulitis, unspecified Status: Acute (2) Chronic kidney disease, stage 3 (moderate): Qualifiers: Chronic kidney disease stage 3 subtype: stage 3a (GFR 45-59) Qualified Code(s): N18.31 - Chronic kidney disease, stage 3a Code(s): N18.3 - Chronic kidney disease, stage 3 (moderate) Status: Chronic (3) Obstructive sleep apnea: Code(s): G47.33 - Obstructive sleep apnea (adult) (pediatric) Status: Chronic (4) Diastolic congestive heart failure: Qualifiers: Heart failure chronicity: chronic Qualified Code(s): I50.32 - Chronic diastolic (congestive) heart failure Code(s): I50.30 - Unspecified diastolic (congestive) heart failure Status: Chronic Plan 11/28/21 ?admit to regular medical floor ?started on clindamycin ?await cultures ?supportive care ?BUN and creatinine at patient's baseline ?continue to monitor ?unclear if use of CPAP at nighttime ?appears euvolemic ?continue to monitor ?daily intake and output 11/29/21 afebrile continue vanc and Zosyn right lower extremity venous ultrasound continue home medications blood cultures pending 11/30/21 US negative x DVT remains on VAnc Zosyn and improving surprisingly CRP is 0.5 cont current care dc planning soon 12/01/21 vanc to doxy cont zosyn anticipate dc home on amox and doxy cont current care anticipate dc tomorrow to home will need outpt follow up w podiatry Subjective Date/time seen: 12/01/21 13:54 pt notes improvement in extremity today erythema is present but color is stave and bolt equalizer, pt noted to have a rxn to Vancomycin and his LUE became erythematosus to elbow Review of Systems Review of Systems: All systems reviewed & are unremarkable except as noted in HPI and below Exam Narrative: GEN: NAD, at bedside, cooperative HEENT: NCAT, MMM, EOMI Neck: no JVD Heart: S1S2 RRR Lungs: CTA B/l Ext: moves all, no cyanosis, no clubbing, ankles erythema and edema extending up the right leg to mid calf is improved from previous exam Neuro: normal cognition, moves all extremities equally, alert orient x3, no focal deficits appreciated Psych: mood and affect congruent Objective Data Vital Signs Vital Signs: Vital Signs - 24 hr 11/30/21 15:08 11/30/21 22:00 12/01/21 00:03 Temperature 98.0 F 97.6 F Pulse Rate 50 L 54 L 61 Respiratory Rate 16 20 18 Blood Pressure 120/69 132/63 Pulse Oximetry 99 99 94 Oxygen Delivery CPAP 12/01/21 02:57 12/01/21 00:03 12/01/21 06:25 Temperature 97.4 F L Pulse Rate 52 L 58 L Respiratory Rate 15 18 Blood Pressure 127/62 Pulse Oximetry 96 94 100 Oxygen Delivery CPAP Autopap Intake/Output Intake/Output: Intake & Output 11/28/21 11/29/21 11/30/21 12/01/21 23:59 23:59 23:59 23:59 Intake Total 50 2710 1720 710 Output Total 2400 2725 750 Balance 50 310 -1005 -40 Meds/Results Medications: Active Medications Generic Name Dose Route Start Last Admin Trade Name Freq PRN Reason Stop Dose Admin Acetaminophen 1,000 mg 11/28/21 23:44 11/29/21 02:31 Acetaminophen 500 Mg Tablet PO 1,000 mg Q6H PRN Administration Mild Pain (1-3) or Fever Atorvastatin Calcium 10 mg 11/29/21 21:00 11/30/21 21:00 Atorvastatin 10 Mg Tablet PO 10 mg HS GLENDY Administration Calcium Carbonate 500 mg 11/29/21 09:00 12/01/21 09:01 Calcium Carbonate (Oscal) 500 Mg Tablet PO 500 mg QAM GLENDY Administration Furosemide 20 mg 12/01/21 09:00 12/01/21 09:01 Furosemide 20 Mg Tablet PO 20 mg DAILY GLENDY Administration Heparin Sodium (Porcine) 5,000 units 11/29/21 22:00 12/01/21 07:03 Heparin Sodium 5,000 Units/Ml Vial SUB-Q 5,000 units Q8HR GLENDY Administration Piperacillin/Tazobactam/Dextrose 3.375 gm in 50 mls @ 100 mls/hr 11/29/21 03:00 12/01/21 09:37 Zosyn 3.375 Gm/D5w 50ml Pm IVPB Infused Q6H GLENDY
[2021-12-01 14:00] VITALS: BP 106/53; PULSE 52; RESP 18; TEMP 36.1; O2SAT 98
[2021-12-01] MEDS: SODIUM CHLORIDE 0.9% IV 1,000 ML 50 ML IV CONT (14:35)
[2021-12-01] MEDS: DOXYCYCLINE 100 MG/NS 100 ML 100 MG/100 ML BAG IVPB (14:39)
[2021-12-01 20:39] VITALS: BP 137/55; PULSE 61; RESP 20; TEMP 36.6; O2SAT 97
[2021-12-01] MEDS: ATORVASTATIN 10 MG TABLET PO (21:43)
[2021-12-01 23:00] VITALS: PULSE 60; RESP 20; O2SAT 95
[2021-12-02] MEDS: DOXYCYCLINE 100 MG/NS 100 ML 100 MG/100 ML BAG IVPB (03:59)
[2021-12-02 05:52] LABS: Anion Gap 9 mmol/L (8-16); Blood Urea Nitrogen 25 mg/dL (9-20); Calcium 8.8 mg/dL (8.4-10.2); Carbon Dioxide 22 mmol/L (22-30); Chloride 107 mmol/L (98-107); Estimated CRCL calculation 62 ml/min; Estimated Glomerular Filt Rate 51; Glucose 88 mg/dL (65-110); Potassium 4.2 mmol/L (3.4-5.0); Sodium 138 mmol/L (137-145)
[2021-12-02 06:00] VITALS: BP 138/59; PULSE 50; RESP 16; TEMP 36.7; O2SAT 100
[2021-12-02] MEDS: HEPARIN SODIUM 5,000 UNITS/ML VIAL 5000 UNITS SUB-Q ×2 (06:53→17:02)
[2021-12-02] MEDS: CHOLECALCIFEROL 1,000 UNITS TABLET 2000 UNITS PO (09:00)
[2021-12-02] MEDS: SPIRONOLACTONE 25 MG TABLET PO (09:00)
[2021-12-02] MEDS: CALCIUM CARBONATE (OSCAL) 500 MG TABLET PO (09:00)
[2021-12-02] MEDS: LOSARTAN POTASSIUM 100 MG TABLET PO (09:00)
[2021-12-02 09:15] VITALS: PULSE 50; RESP 16; O2SAT 100
[2021-12-02 13:19] VITALS: BP 131/66; PULSE 53; RESP 16; TEMP 37; O2SAT 100
--- NOTE | 2021-12-02 17:10 | PM.DS ---
DS: Admitting Diagnosis Discharge Date 12/02/21 Admitting Diagnosis (1) Cellulitis: ?Code(s): L03.90 - Cellulitis, unspecified ?Status:?Acute (2) Chronic kidney disease, stage 3 (moderate): ?Qualifiers: ?Chronic kidney disease stage 3 subtype:?stage 3a (GFR 45-59)? Qualified Code(s):?N18.31 - Chronic kidney disease, stage 3a ?Code(s): N18.3 - Chronic kidney disease, stage 3 (moderate) ?Status:?Chronic (3) Obstructive sleep apnea: ?Code(s): G47.33 - Obstructive sleep apnea (adult) (pediatric) ?Status:?Chronic (4) Diastolic congestive heart failure: ?Qualifiers: ?Heart failure chronicity:?chronic? Qualified Code(s):?I50.32 - Chronic diastolic (congestive) heart failure ?Code(s): I50.30 - Unspecified diastolic (congestive) heart failure ?Status:?Chronic DS: Discharge Diagnosis Discharge Diagnosis (1) Cellulitis: Qualifiers: Laterality: right Site of cellulitis: extremity Site of cellulitis of extremity: lower extremity Qualified Code(s): L03.115 - Cellulitis of right lower limb Code(s): L03.90 - Cellulitis, unspecified Status: Acute (2) Chronic kidney disease, stage 3 (moderate): Qualifiers: Chronic kidney disease stage 3 subtype: stage 3a (GFR 45-59) Qualified Code(s): N18.31 - Chronic kidney disease, stage 3a Code(s): N18.3 - Chronic kidney disease, stage 3 (moderate) Status: Chronic (3) Obstructive sleep apnea: Code(s): G47.33 - Obstructive sleep apnea (adult) (pediatric) Status: Chronic (4) Diastolic congestive heart failure: Qualifiers: Heart failure chronicity: chronic Qualified Code(s): I50.32 - Chronic diastolic (congestive) heart failure Code(s): I50.30 - Unspecified diastolic (congestive) heart failure Status: Chronic DS: Summary Hospital Course Reason for hospitalization: right lower extremity redness Narrative: ?This is a 66-year-old male with past medical history significant for chronic kidney disease, hypertension, dyslipidemia. patient presents to the emergency room due to right lower extremity tenderness, redness, swelling, for the last 2 weeks or so had been taking antibiotics in the outpatient setting however noted worsening of all of these in the last day or so denies any fevers, rigors, chills, night sweats, nausea, vomiting, diarrhea, abdominal pain, cough, sputum production, poor appetite, , wounds.? Preliminary workup has been essentially nonrevealing. Hospital Course: 11/28/21 ?admit to regular medical floor ?started on clindamycin ?await cultures ?supportive care ?BUN and creatinine at patient's baseline ?continue to monitor ?unclear if use of CPAP at nighttime ?appears euvolemic ?continue to monitor ?daily intake and output 11/29/21 ?afebrile ?continue vanc and Zosyn ?right lower extremity? venous ultrasound ?continue home medications ?blood cultures pending 11/30/21 US negative x DVT remains on VAnc Zosyn and improving surprisingly CRP is 0.5 cont current care dc planning soon 12/01/21 vanc to doxy cont zosyn anticipate dc home on amox and doxy cont current care anticipate dc tomorrow to home will need outpt follow up w podiatry 12/02/21 pt has significiantly improved, dc home in stable condition w indications to follow up w PCP in 1 week for ongoing care doxy and amoxicllin called into pharmacy Status at Discharge Functional status at discharge: independent ambulation Overall status at discharge: patient is back to baseline Time Spent with Patient Time attestation: Total time spent providing and/or coordinating discharge services: Exam Narrative: GEN: NAD,? at bedside, cooperative HEENT: NCAT, MMM, EOMI Neck: no JVD Heart: S1S2 RRR Lungs: CTA B/l Ext: moves all, no cyanosis, no clubbing Neuro:? normal cognition, moves all extremities equally,? alert orient x3, no focal deficits appreciated Psych: mood? and
== END 2021-12-02 17:34 | disposition home or self-care (01) | DRG 603 ==
LOC: ANHED 21:03 → ANH3MED 22:40
PROVIDERS: Emergency Medicine; Admitting Provider Internal Medicine; Emergency Provider Emergency Medicine; PCP Family Medicine; Visit Provider Hospitalist
DX: L03.115 Cellulitis of right lower limb (principal); I13.0 Hypertensive heart and chronic kidney disease with heart failure and stage 1 through stage 4 chronic kidney disease, or unspecified chronic kidney disease; I50.32 Chronic diastolic (congestive) heart failure; N18.30 Chronic kidney disease, stage 3 unspecified; M19.90 Unspecified osteoarthritis, unspecified site; E78.00 Pure hypercholesterolemia, unspecified; G47.33 Obstructive sleep apnea (adult) (pediatric); Z86.718 Personal history of other venous thrombosis and embolism; Z90.49 Acquired absence of other specified parts of digestive tract
CPT/HCPCS: 36415; 80048; 80053; 80202; 82565; 83735; 85025; 86140; 87040; 87077; 87186; 93922; 93971; 96365; 96375; 97161; 99285; A9270; J1644; J2543; J3370; J7030

== ENCOUNTER 2022-01-22 16:16 | Inpatient (IN) | payer MEDICARE, SELFPAY ==
[2022-01-22] VITALS (14 sets, daily range): BP systolic 115–157; BP diastolic 54–106; PULSE 68–81; RESP 16–18; TEMP 38.5; O2SAT 93–99
[2022-01-22 19:39] LABS: Basophils Absolute Auto 0.1 K/mm3 (0.0-0.1); Basophils Percent Auto 0.4 % (0.2-1.2); Eosinophils Percent Auto 0.1 % (0-4.4); Hematocrit 48.9 % (42.0-52.0); Hemoglobin 16.5 g/dL (14.0-18.0); Immature Granulocyte Absolute 0.05 K/mm3 (0.00-0.031); Immature Granulocyte Percent A 0.3 % (0-0.5); Lymphocytes Absolute Auto 0.82 K/mm3 (0.9-3.2); Lymphocytes Percent Auto 5.5 % (18.3-44.2); Mean Corpuscular HGB Conc 33.7 g/dl (32-36); Mean Corpuscular Hemoglobin 32.5 pg (26-34); Mean Corpuscular Volume 96.3 fl (80-100); Mean Platelet Volume 10.7 fl (7.4-10.4); Monocytes Percent Auto 6.4 % (2.6-8.5); Neutrophils Percent Auto 87.3 % (45.5-73.1); Platelet Count Result 186 k/mm3 (150-375); Red Blood Count 5.08 M/mm3 (4.6-6.20); Red Cell Distribution Width 12.6 % (11.5-14.5); White Blood Count 14.9 K/mm3 (4.5-10.0)
[2022-01-22 19:47] LABS: Lactic Acid Reflex 1.9 mmol/L (0.7-2.0)
[2022-01-22 19:50] LABS: Alanine Aminotransferase 27 U/L (6-50); Alkaline Phosphatase 100 U/L (38-126); Anion Gap 15 mmol/L (8-16); Aspartate Amino Transferase 26 U/L (17-59); Bilirubin,Total 2.4 mg/dL (0.2-1.3); Blood Urea Nitrogen 32 mg/dL (9-20); CRP 4.1 mg/dL (<1.0); Calcium 9.7 mg/dL (8.4-10.2); Carbon Dioxide 22 mmol/L (22-30); Chloride 100 mmol/L (98-107); Estimated CRCL calculation 67 ml/min; Estimated Glomerular Filt Rate 55; Glucose 112 mg/dL (65-110); Potassium 3.9 mmol/L (3.4-5.0); Sodium 137 mmol/L (137-145)
[2022-01-22 19:54] LABS: INR 1.1; Prothrombin Time 13.9 Seconds (11.1-14.7)
[2022-01-22 19:55] LABS: Partial Thromboplastin Time 29.1 SECONDS (22.3-36.8)
--- NOTE | 2022-01-22 21:49 | ED.SKABFB ---
HPI - Skin/Abscess/Foreign Bdy General Chief complaint: Recheck/Abnormal Lab/Rx Stated complaint: cellulitis and low O2 saturation Time Seen by Provider: 01/22/22 21:29 History of Present Illness HPI narrative: This is a 66-year-old male with past medical history of CKD stage III, hypertension who was sent by his primary care doctor for cellulitis of the right leg. Patient states he noticed a quarter sized area of erythema and itching on the right foreleg that has rapidly progressed to include the right foreleg. This is associated with fevers and intermittent feelings of lightheadedness. He denies chest pain, loss of consciousness or vomiting. Related Data Home Medications Medication Instructions Recorded Confirmed spironolactone 25 mg tablet 25 mg PO DAILY 06/20/20 12/29/21 aspirin 81 mg tablet,delayed 81 mg PO DAILY 12/22/21 12/29/21 release atorvastatin 10 mg tablet 40 mg PO HS 12/22/21 12/29/21 dapagliflozin 10 mg tablet 10 mg PO DAILY 12/22/21 12/29/21 (Farxiga) sacubitril 49 mg-valsartan 51 mg 1 tablet PO BID 12/22/21 12/29/21 tablet (Entresto) Allergies Allergy/AdvReac Type Severity Reaction Status Date / Time lisinopril AdvReac Unknown cough Verified 01/22/22 17:01 Review of Systems Review of Systems: CONSTITUTIONAL: fever, chills, Denies sweats. EYES: Denies visual changes, redness, or discharge. ENT: Denies rhinorrhea, congestion, sore throat, or otalgia. CARDIOVASCULAR: Denies chest pain, palpitations, or edema. RESPIRATORY: Denies cough or dyspnea. GASTROINTESTINAL: Denies abdominal pain, nausea, vomiting, or diarrhea. GENITOURINARY: Denies dysuria or hematuria. SKIN: rash and tenderness. MUSCULOSKELETAL: Denies back pain, joint pain, or myalgia. NEUROLOGIC: Denies headache, numbness, dizziness, or weakness. PSYCHIATRIC: Denies anxiety or depression. [facility] Past Medical History Medical History Arthritis Chronic kidney disease, stage 3 (moderate) Diastolic congestive heart failure Hepatitis C antibody test negative (01/08/17) High cholesterol History of blood clots LLE DVT 2010 History of cardiac disorder HTN (hypertension) Hypertensive chronic kidney disease with stage 1 through stage 4 chronic kidney disease, or unspecified chronic kidney disease Positive colorectal cancer screening using Cologuard test Surgical History Surgical History History of hernia repair Hx of cholecystectomy (~1999) Family History Family History Father Hypertension Family history of elevated blood lipids Family history of cardiovascular disease, Onset Age: 86 Mother Hypertension Family history of kidney disease Familial primary pulmonary hypertension Grandparent Diabetes mellitus Social History Social History Smoking status: Never smoker Second hand tobacco smoke exposure: No Alcohol intake: never Substance use: never Lack of Transportation: No Lack of Food: Sometimes True Current Housing: I Have Housing Concerned About Future Housing: No Difficulty Paying Gas/Electric Bills: No Difficulty Paying for Meds: No Currently Unemployed: No Education: Associate Degree Difficulty w/ Childcare or Family Care: No Gender identity (if verbalized by the patient): Male Sexual Orientation (if Verbalized by the Patient): Straight or Heterosexual Spiritual care concerns: No Exam Narrative: GENERAL: Well-developed, well-nourished, and in no acute distress. HEAD: Normocephalic, atraumatic. EYES: PERRLA and EOMI. ENT: Nares clear, no rhinorrhea or epistaxis. Mucous membranes moist. Oropharynx without tonsillar hypertrophy exudate or other lesions. NECK: Supple. No adenopathy or masses. No carotid bruits or JVD CHEST: Clear to auscul
--- NOTE | 2022-01-22 21:58 | PC.NURSE ---
Pt attempted to provide urine sample at this time, no success. Urinal at bedside.
[2022-01-22] MEDS: ACETAMINOPHEN 500 MG TABLET 1000 MG PO (22:05)
[2022-01-22] MEDS: CLINDAMYCIN 600 MG/D5W 50 ML 600 MG/50 ML PIGGYBACK 100 MG IVPB (22:36)
[2022-01-22 22:50] LABS: Glucose Point of Care 133 mg/dl (65-105)
--- NOTE | 2022-01-22 23:22 | PC.NURSE ---
Report given to Guadalupe NAJERA
--- NOTE | 2022-01-22 23:36 | PM.IMHP ---
H&P: HPI History of Present Illness Date/Time: 01/22/22 23:36 Chief Complaint: right leg cellulitis Narrative: This is a 67-year-old male with past medical history significant for type diabetes mellitus, dyslipidemia, hypertension, chronic kidney disease, diastolic heart failure. patient was sent to the emergency room by his primary care physician due to right lower extremity rapidly progressing erythematous rash and tenderness and swelling of 1 day duration patient had been prescribed amoxicillin which he took with just 1 tablet. Patient has had a chills, fevers, pain in the right lower extremity, poor appetite. Patient is been admitted for further evaluation management and treatment. Review of Systems Review of Systems: Right lower extremity cellulitis Constitutional: Constitutional: Reports chills, Reports fever(s) and Reports poor appetite Eyes: Eyes: Denies change in vision ENT: Denies dysphagia and Denies odynophagia Cardiovascular: Cardiovascular: Denies chest pain, Denies leg edema, Denies radiating jaw, neck or arm pain and Denies palpitations Respiratory: Respiratory: Denies chest congestion, Denies cough, Denies excessive phlegm production and Denies dyspnea Gastrointestinal: Gastrointestinal: Denies abdominal pain, Denies dyspepsia, Denies heartburn, Denies diarrhea, Denies nausea and Denies vomiting Genitourinary: Genitourinary: Denies dysuria Musculoskeletal: Musculoskeletal: Reports other ( right lower extremity tenderness, redness) Integumentary/Breasts: Skin/Breast: Reports erythema, Reports skin pain and Reports skin swelling Neurologic: Denies vertigo, Denies dizziness, Denies focal weakness and Denies Sensory deficit (Neuro) Psychiatric: Psychiatric: Reports no additional psychiatric complaints and Reports as per HPI Endocrine: Endocrine: Denies cold intolerance, Denies flushing, Denies heat intolerance, Denies polyphagia, Denies polydipsia and Denies palpitations Hematologic/Lymphatic: Hematologic/Lymphatic: Reports no additional hematologic/lymphatic complaints and Reports as per HPI Allergic/Immunologic: Allergic/Immunologic: Reports no additional allergic/immunologic complaints and Reports as per HPI PMFSH Past Medical History Medical History Arthritis Chronic kidney disease, stage 3 (moderate) Diastolic congestive heart failure Hepatitis C antibody test negative (01/08/17) High cholesterol History of blood clots LLE DVT 2009 History of cardiac disorder HTN (hypertension) Hypertensive chronic kidney disease with stage 1 through stage 4 chronic kidney disease, or unspecified chronic kidney disease Positive colorectal cancer screening using Cologuard test Surgical History Surgical History History of hernia repair Hx of cholecystectomy (~1999) Family History Family History Father Hypertension Family history of elevated blood lipids Family history of cardiovascular disease, Onset Age: 86 Mother Hypertension Family history of kidney disease Familial primary pulmonary hypertension Grandparent Diabetes mellitus Social History Social History Smoking status: Never smoker Second hand tobacco smoke exposure: No Alcohol intake: never Substance use: never Lack of Transportation: No Lack of Food: Never True Current Housing: I Have Housing Concerned About Future Housing: No Difficulty Paying Gas/Electric Bills: No Difficulty Paying for Meds: No Currently Unemployed: No Education: Associate Degree Difficulty w/ Childcare or Family Care: No Gender identity (if verbalized by the patient): Male Sexual Orientation (if Verbalized by the Patient): Straight or Heterosexual Spiritual care concerns: No Meds Tony
[2022-01-23] VITALS (18 sets, daily range): BP systolic 109–144; BP diastolic 58–85; PULSE 57–71; RESP 18–20; TEMP 35.8–36.8; O2SAT 92–100; BMI 35.1; BMI 77.3
[2022-01-23 01:09] LABS: Influenza A QL RT-PCR Negative (Negative); Influenza B QL RT-PCR Negative (Negative); SARS-CoV-2 RNA PCR Negative
[2022-01-23 01:26] LABS: Appearance Urine Clear (Clear); Bilirubin Urine Negative (Negative); Blood Urine Trace-intact (Negative); Color Urine Yellow (Yellow); Glucose Urine UA 3+ mg/dL (Negative); Ketones Urine Negative (Negative); Leukocyte Esterase Ur Negative LEU/UL (Negative); Nitrate Urine Negative (Negative); Protein Urine Trace mg/dL (Negative); Specific Grav Ur 1.015 (1.001-1.035); Urobilinogen Urine 0.2 mg/dL (<2.0); pH Urine 5.5 (5.0-9.0)
[2022-01-23 01:56] LABS: Add Urine Microscopic? YES; WBC Urine None seen /hpf
[2022-01-23 01:57] LABS: Squamous Epithelial Cell Urine Few /hpf (Few)
[2022-01-23 01:59] LABS: Bacteria Urine None seen /hpf
--- NOTE | 2022-01-23 05:56 | ADMGEN ---
This patient, Fred Salinas, was admitted to 3 [facility] Surg Room 320-01. Patient/family oriented to hospital policies and general routines including ID bracelet, bed and alarms, visiting hours, pain management, procedures, bathroom and other care routines, personal items, smoking policy, room service/diet, and visiting hours. Information on how to activate the Rapid Response Team has been discussed. Patient/Family are encouraged to report perceived risks to care and to ask questions if they do not understand what they are told or what they should do.
[2022-01-23 06:57] LABS: Basophils Percent Auto 0.4 % (0.2-1.2); Eosinophils Percent Auto 0.2 % (0-4.4); Hematocrit 41.4 % (42.0-52.0); Hemoglobin 13.9 g/dL (14.0-18.0); Immature Granulocyte Absolute 0.03 K/mm3 (0.00-0.031); Immature Granulocyte Percent A 0.3 % (0-0.5); Immature Platelet Fraction Pct 4.5 % (0.9-11.2); Lymphocytes Absolute Auto 0.79 K/mm3 (0.9-3.2); Lymphocytes Percent Auto 8.7 % (18.3-44.2); Mean Corpuscular HGB Conc 33.6 g/dl (32-36); Mean Corpuscular Hemoglobin 32.9 pg (26-34); Mean Corpuscular Volume 98.1 fl (80-100); Mean Platelet Volume 10.7 fl (7.4-10.4); Monocytes Absolute Auto 1.1 K/mm3 (0.1-0.6); Monocytes Percent Auto 12.1 % (2.6-8.5); Neutrophils Absolute Auto 7.1 K/mm3 (1.3-6.7); Neutrophils Percent Auto 78.3 % (45.5-73.1); Platelet Count Result 149 k/mm3 (150-375); Red Blood Count 4.22 M/mm3 (4.6-6.20); Red Cell Distribution Width 12.9 % (11.5-14.5); White Blood Count 9.1 K/mm3 (4.5-10.0)
[2022-01-23 07:20] LABS: Anion Gap 5 mmol/L (8-16); Blood Urea Nitrogen 23 mg/dL (9-20); Calcium 8.7 mg/dL (8.4-10.2); Carbon Dioxide 23 mmol/L (22-30); Chloride 108 mmol/L (98-107); Estimated CRCL calculation 115 ml/min; Estimated Glomerular Filt Rate 60; Glucose 105 mg/dL (65-110); Potassium 4.1 mmol/L (3.4-5.0); Sodium 136 mmol/L (137-145)
[2022-01-23 07:45] LABS: Glucose Point of Care 102 mg/dl (65-105)
[2022-01-23 11:37] LABS: Glucose Point of Care 105 mg/dl (65-105)
[2022-01-23 16:32] LABS: Glucose Point of Care 114 mg/dl (65-105)
--- NOTE | 2022-01-23 18:43 | PC.NURSE ---
Pt reports to this nurse that he had Red Man Syndrome to Vancomycin during his last hospitalization. Provider notified. Pt did have a dose of Vancomycin this AM in ER. To continue with Vanco infusion per MD direction.
[2022-01-23 21:51] LABS: Glucose Point of Care 148 mg/dl (65-105)
[2022-01-24 06:00] VITALS: BP 136/71; PULSE 53; RESP 16; TEMP 36.1; O2SAT 100
[2022-01-24 08:27] LABS: Glucose Point of Care 106 mg/dl (65-105)
[2022-01-24 12:01] LABS: Glucose Point of Care 128 mg/dl (65-105)
[2022-01-24] MEDS: FUROSEMIDE 40 MG TABLET PO (12:10)
[2022-01-24] MEDS: CALCIUM CARBONATE (OSCAL) 500 MG TABLET PO (12:10)
[2022-01-24] MEDS: CHOLECALCIFEROL 1,000 UNITS TABLET 2000 UNITS PO (12:10)
[2022-01-24] MEDS: ASPIRIN 81 MG ENTERIC TABLET PO (12:10)
[2022-01-24] MEDS: SPIRONOLACTONE 25 MG TABLET PO (12:11)
--- NOTE | 2022-01-24 12:39 | PM.IMPN ---
Progress Note: A&P Assessment and Plan (1) Cellulitis of right leg: Code(s): L03.115 - Cellulitis of right lower limb Status: Acute Assessment and Plan: admit to regular medical floor patient started on vancomycin cultures in progress supportive care (2) Obstructive sleep apnea: Code(s): G47.33 - Obstructive sleep apnea (adult) (pediatric) Status: Chronic Assessment and Plan: continue CPAP at nighttime (3) Diastolic congestive heart failure: Qualifiers: Heart failure chronicity: chronic Qualified Code(s): I50.32 - Chronic diastolic (congestive) heart failure Code(s): I50.30 - Unspecified diastolic (congestive) heart failure Status: Chronic Assessment and Plan: patient appears euvolemic daily weight daily intake and output (4) Chronic kidney disease, stage 3 (moderate): Qualifiers: Chronic kidney disease stage 3 subtype: stage 3a (GFR 45-59) Qualified Code(s): N18.31 - Chronic kidney disease, stage 3a Code(s): N18.3 - Chronic kidney disease, stage 3 (moderate) Status: Chronic Assessment and Plan: continue to monitor BUN and creatinine Subjective Date/time seen: 01/24/22 12:39 no complaints Exam Const: General: comfortable, no acute distress, well developed, alert, awake and average body habitus Nutritional Appearance: average body habitus Orientation/consciousness: patient oriented x3 HENMT: Head: normal to inspection, normocephalic and atraumatic Ears: hearing grossly normal bilaterally Face/Nose/Sinus: normal facial exam Face and sinus: normal facial exam Eyes: General: appearance normal, both eyes and all related structures Pupils: Equal, round and reactive pupils present EOM: EOMs intact bilaterally Neck: Neck: full ROM, no lymphadenopathy and no JVD Thyroid: thyroid normal Lymphatic: no lymphadenopathy noted Resp: Effort & Inspection: normal respiratory effort and able to speak in complete sentences Auscultation: clear to auscultation bilaterally Cardio: Jugular venous distension: no JVD Rate: regular rate Rhythm: regular rhythm Heart sounds: S1 normal heart sound present and S2 normal heart sound present GI: Inspection: normal to inspection : General: Yes deferred Skin: Wounds: no wounds Other: erythematous rash in the right lower extremity Neuro: General: patient oriented x3 and CN's II-XI intact bilaterally Cranial nerves: Yes CN's II-XII intact bilaterally and Yes Equal, round and reactive pupils present Cognition (Neuro): normal cognition Speech: normal speech Gait exam (Neuro): Normal gait present Motor exam (neuro): 5/5 motor strength present throughout Sensory Exam: No Sensory deficit (Neuro) Extrem: General: normal to inspection, full ROM, normal exam except as noted, no joint enlargement and no pedal edema Objective Data Vital Signs Vital Signs: Vital Signs - 24 hr 01/23/22 20:00 01/23/22 22:00 01/24/22 06:00 Temperature 96.6 F L 97 F L Pulse Rate 59 L 53 L Respiratory Rate 18 16 Blood Pressure 132/58 L 136/71 Pulse Oximetry 99 98 100 Oxygen Delivery Room Air 01/24/22 08:10 Temperature Pulse Rate Respiratory Rate Blood Pressure Pulse Oximetry Oxygen Delivery Room Air Intake/Output Intake/Output: Intake & Output 01/21/22 01/22/22 01/23/22 01/24/22 23:59 23:59 23:59 23:59 Intake Total 1150 3060 820 Output Total 950 Balance 1150 2110 820 Meds/Results Medications: Active Medications Generic Name Dose Route Start Last Admin Trade Name Freq PRN Reason Stop Dose Admin Aspirin 81 mg 01/24/22 11:05 01/24/22 12:10 Aspirin 81 Mg Enteric Tablet PO 81 mg DAILY GLENDY Administration Atorvastatin Calcium 40 mg 01/24/22 21:00 Atorvastatin 40 Mg Tablet PO HS [facility] Calcium Carbonate 500 mg 01/24/22 11:10 01/24/22 12:10 Calcium Carbonate (Oscal) 500 Mg Tablet PO 500 mg QAM GLENDY Administration
[2022-01-24 14:00] VITALS: BP 127/54; PULSE 60; RESP 16; TEMP 36.5; O2SAT 94
[2022-01-24 21:05] LABS: Glucose Point of Care 116 mg/dl (65-105)
[2022-01-24] MEDS: SACUBITRIL/VALSARTAN 49-51 MG TABLET 1 TABLET PO (21:43)
[2022-01-24] MEDS: ATORVASTATIN 40 MG TABLET PO (21:43)
[2022-01-24 22:00] VITALS: BP 140/63; PULSE 54; RESP 14; TEMP 36.2; O2SAT 99
[2022-01-25 06:00] VITALS: BP 142/71; PULSE 49; RESP 16; TEMP 36.1; O2SAT 99
[2022-01-25 07:01] LABS: Estimated CRCL calculation 72 ml/min; Estimated Glomerular Filt Rate 60
[2022-01-25 08:04] VITALS: BP 130/71; PULSE 52; RESP 18; TEMP 36.4; O2SAT 99
[2022-01-25] MEDS: FUROSEMIDE 40 MG TABLET PO (09:38)
[2022-01-25] MEDS: CHOLECALCIFEROL 1,000 UNITS TABLET 2000 UNITS PO (09:38)
[2022-01-25] MEDS: SPIRONOLACTONE 25 MG TABLET PO (09:39)
[2022-01-25] MEDS: ASPIRIN 81 MG ENTERIC TABLET PO (09:39)
[2022-01-25] MEDS: SACUBITRIL/VALSARTAN 49-51 MG TABLET 1 TABLET PO (09:39)
[2022-01-25] MEDS: CALCIUM CARBONATE (OSCAL) 500 MG TABLET PO (09:39)
--- NOTE | 2022-01-25 11:35 | PM.DS ---
DS: Admitting Diagnosis Discharge Date January 25, 2022 Admitting Diagnosis cellulitis DS: Discharge Diagnosis Discharge Diagnosis (1) Cellulitis of right leg: Code(s): L03.115 - Cellulitis of right lower limb Status: Acute Assessment and Plan: admit to regular medical floor patient started on vancomycin cultures in progress supportive care (2) Obstructive sleep apnea: Code(s): G47.33 - Obstructive sleep apnea (adult) (pediatric) Status: Chronic Assessment and Plan: continue CPAP at nighttime (3) Diastolic congestive heart failure: Qualifiers: Heart failure chronicity: chronic Qualified Code(s): I50.32 - Chronic diastolic (congestive) heart failure Code(s): I50.30 - Unspecified diastolic (congestive) heart failure Status: Chronic Assessment and Plan: patient appears euvolemic daily weight daily intake and output (4) Chronic kidney disease, stage 3 (moderate): Qualifiers: Chronic kidney disease stage 3 subtype: stage 3a (GFR 45-59) Qualified Code(s): N18.31 - Chronic kidney disease, stage 3a Code(s): N18.3 - Chronic kidney disease, stage 3 (moderate) Status: Chronic Assessment and Plan: continue to monitor BUN and creatinine DS: Summary Hospital Course Hospital Course: admitted for right lower extremity cellulitis. Improved with vancomycin. Blood cultures negative. Patient will be sent home on doxycycline Time Spent with Patient Time attestation: Total time spent providing and/or coordinating discharge services: Exam Const: General: comfortable, no acute distress, well developed, alert, awake and average body habitus Nutritional Appearance: average body habitus Orientation/consciousness: patient oriented x3 HENMT: Head: normal to inspection, normocephalic and atraumatic Ears: hearing grossly normal bilaterally Face/Nose/Sinus: normal facial exam Face and sinus: normal facial exam Eyes: General: appearance normal, both eyes and all related structures Pupils: Equal, round and reactive pupils present EOM: EOMs intact bilaterally Neck: Neck: full ROM, no lymphadenopathy and no JVD Thyroid: thyroid normal Lymphatic: no lymphadenopathy noted Resp: Effort & Inspection: normal respiratory effort and able to speak in complete sentences Auscultation: clear to auscultation bilaterally Cardio: Jugular venous distension: no JVD Rate: regular rate Rhythm: regular rhythm Heart sounds: S1 normal heart sound present and S2 normal heart sound present GI: Inspection: normal to inspection : General: Yes deferred Skin: Wounds: no wounds Other: erythematous rash in the right lower extremity Neuro: General: patient oriented x3 and CN's II-XI intact bilaterally Cranial nerves: Yes CN's II-XII intact bilaterally and Yes Equal, round and reactive pupils present Cognition (Neuro): normal cognition Speech: normal speech Gait exam (Neuro): Normal gait present Motor exam (neuro): 5/5 motor strength present throughout Sensory Exam: No Sensory deficit (Neuro) Extrem: General: normal to inspection, full ROM, normal exam except as noted, no joint enlargement and no pedal edema DS: Data Data Completed and Pending Labs on day of discharge: Labs from last 24 hours 01/25/22 01/25/22 01/24/22 06:35 06:35 21:00 Creatinine 1.20 Estim Creat Clear Calc 72 Estimated GFR 60 POC Capillary Glucose 116 H Vancomycin Trough 13.0 01/24/22 11:54 Creatinine Estim Creat Clear Calc Estimated GFR POC Capillary Glucose 128 H Vancomycin Trough Preliminary micro results at discharge 01/22/22 22:27 Blood Culture - Preliminary Blood 01/22/22 22:27 Blood Culture - Preliminary Blood Discharge Plan Discharge Attending physician on discharge: Kervin Cook Discharging Clinician: Kervin Cook Patient Disposition: Home, Self-Care Activity: no prefe
== END 2022-01-25 13:35 | disposition home or self-care (01) | DRG 603 ==
LOC: ANHED 01-23 00:22 → ANH3MEDSUR 01-23 00:36
PROVIDERS: Emergency Medicine; Hospitalist; Admitting Provider Internal Medicine; Emergency Provider Preventive Medicine Aerospace Medicine; PCP Family Medicine; Visit Provider Chiropractor
DX: L03.115 Cellulitis of right lower limb (principal); I13.0 Hypertensive heart and chronic kidney disease with heart failure and stage 1 through stage 4 chronic kidney disease, or unspecified chronic kidney disease; I50.32 Chronic diastolic (congestive) heart failure; E11.22 Type 2 diabetes mellitus with diabetic chronic kidney disease; E78.5 Hyperlipidemia, unspecified; G47.33 Obstructive sleep apnea (adult) (pediatric); M19.90 Unspecified osteoarthritis, unspecified site; N18.31 Chronic kidney disease, stage 3a; Z86.718 Personal history of other venous thrombosis and embolism; Z90.49 Acquired absence of other specified parts of digestive tract; Z79.82 Long term (current) use of aspirin; Z20.822 Contact with and (suspected) exposure to COVID-19
CPT/HCPCS: 36415; 80048; 80053; 80202; 81001; 82565; 82948; 83605; 85025; 85055; 85610; 85730; 86140; 87040; 87636; 96365; 96367; 96375; 99285; A9270; G0378; J0131; J0692; J3370; J7030

== ENCOUNTER 2022-04-27 09:14 | Outpatient (CLI) | payer MEDICARE, SELFPAY ==
[2022-04-27 12:01] LABS: Kit Draw Collected
== END 2022-04-27 09:15 | disposition home or self-care (01) ==
LOC: ANHGOSHLAB 09:16
PROVIDERS: PCP Family Medicine; Visit Provider Family Medicine
DX: Z12.5 Encounter for screening for malignant neoplasm of prostate (principal)
CPT/HCPCS: 36415

== ENCOUNTER 2023-02-04 11:02 | Outpatient (CLI) | payer MEDICARE, SELFPAY ==
--- NOTE | ~2023-02-04 | US_ITS ---
EXAMINATION: US venous doppler UE DATE: 02/04/2023 11:47 INDICATION: Left upper limb erythema and tenderness. TECHNIQUE: Grayscale ultrasound images without and with compression and Doppler ultrasound images of the left upper extremity veins were obtained. COMPARISON: None. FINDINGS: The visualized portions of the left internal jugular vein, subclavian vein, axillary vein, brachial v eins, basilic vein, cephalic vein, radial vein, and ulnar vein are patent. IMPRESSION: 1. No deep venous thrombosis. Reviewed, dictated and finalized at location A. ION SHOW DIRECTOR
== END 2023-02-04 11:03 | disposition home or self-care (01) ==
PROVIDERS: PCP Family Medicine; Visit Provider Family Medicine
DX: M79.602 Pain in left arm (principal); M79.89 Other specified soft tissue disorders; Z86.718 Personal history of other venous thrombosis and embolism
CPT/HCPCS: 93971

== ENCOUNTER 2023-03-20 13:07 | Outpatient (CLI) | payer MEDICARE, SELFPAY ==
[2023-03-20 14:19] LABS: Influenza A QL RT-PCR Negative (Negative); Influenza B QL RT-PCR Negative (Negative); SARS-CoV-2 RNA PCR Negative (Negative)
== END 2023-03-20 13:08 | disposition home or self-care (01) ==
LOC: ANHLAB 13:09
PROVIDERS: PCP Family Medicine; Visit Provider Nurse Practitioner
DX: R68.89 Other general symptoms and signs (principal); I50.32 Chronic diastolic (congestive) heart failure; Z20.822 Contact with and (suspected) exposure to COVID-19
CPT/HCPCS: 87636

== ENCOUNTER 2023-11-15 10:24 | Outpatient (CLI) | payer MEDICARE, SELFPAY ==
--- NOTE | ~2023-11-15 | XR_ITS ---
AP and lateral views of the left tibia/fibula Clinical History: Status post fall Findings: No acute fracture or dislocation is seen. Osseous alignment is anatomic. Joint spaces are p reserved without significant erosive or degenerative change. Soft tissues are unremarkable. Impression: Unremarkable left tib-fib radiographs. Reviewed, dictated and finalized at [facility]. Impression: Unremarkable left tib-fib radiographs.
== END 2023-11-15 10:25 | disposition home or self-care (01) ==
LOC: MICIMG 10:27
PROVIDERS: PCP Family Medicine; Visit Provider Family Medicine
DX: M79.662 Pain in left lower leg (principal)
CPT/HCPCS: 73590

== ENCOUNTER 2024-05-02 13:57 | Emergency (ER) | payer MEDICARE, SELFPAY ==
[2024-05-02 14:10] VITALS: BP 102/80; PULSE 66; RESP 16; TEMP 36.2; O2SAT 99
--- NOTE | 2024-05-02 14:54 | ED_ITS ---
HPI - Ear Problem General Chief complaint: Ear Stated complaint: Poss ear infection History of Present Illness HPI Narrative: 69-year-old male presents with complaints of right ear pain since last Saturday. Patient denies any fevers, body aches or chills. Patient denies hearing difficulties. He denies any cough shortness of breath, nasal congestion. Related Data Home Medications ?Medication ?Instructions ?Recorded ?Confirmed ?Last Taken ?Type spironolactone 25 mg tablet 25 mg PO DAILY 06/20/20 05/02/24 01/23/22 07:34 History aspirin 81 mg tablet,delayed 81 mg PO DAILY 12/22/21 05/02/24 01/22/22 History release atorvastatin 40 mg tablet 40 mg PO QHS 04/27/22 05/02/24 Unknown History sacubitril 97 mg-valsartan 103 mg 1 tablet PO BID 09/21/22 05/02/24 Unknown History tablet (Entresto) empagliflozin 10 mg tablet 10 mg PO DAILY 07/11/23 05/02/24 Unknown History (Jardiance) cholecalciferol (vitamin D3) 50 50 mcg PO DAILY 11/15/23 05/02/24 Unknown History mcg (2,000 unit) tablet furosemide 40 mg tablet 80 mg PO DAILY 03/06/24 05/02/24 Unknown History semaglutide 2 mg/dose (8 mg/3 mL) 2 mg subcut WEEKLY 05/02/24 05/02/24 Unknown History subcutaneous pen injector (Ozempic) Allergies Allergy/AdvReac Type Severity Reaction Status Date / Time lisinopril AdvReac Unknown cough Verified 05/02/24 14:07 Review of Systems Review of Systems: All systems reviewed & are unremarkable except as noted in HPI and below Eyes: Eyes: Reports as per HPI ENT: Reports as per HPI Cardiovascular: Cardiovascular: Reports as per HPI Respiratory: Respiratory: Reports as per HPI Genitourinary: Genitourinary: Reports as per HPI Musculoskeletal: Musculoskeletal: Reports as per HPI Integumentary/Breasts: Skin/Breast: Reports as per HPI Neurologic: Reports as per HPI Psychiatric: Psychiatric: Reports as per HPI Endocrine: Endocrine: Reports as per HPI Hematologic/Lymphatic: Hematologic/Lymphatic: Reports as per HPI Allergic/Immunologic: Allergic/Immunologic: Reports as per HPI [facility] Past Medical History Medical History Hepatitis C antibody test negative (01/08/17) Diastolic congestive heart failure History of cardiac disorder Positive colorectal cancer screening using Cologuard test Arthritis History of blood clots LLE DVT 2010 High cholesterol HTN (hypertension) Chronic kidney disease, stage 3 (moderate) Hypertensive chronic kidney disease with stage 1 through stage 4 chronic kidney disease, or unspecified chronic kidney disease Surgical History Surgical History Hx of cholecystectomy (~2000) History of hernia repair Family History Family History Father Hypertension Family history of elevated blood lipids Family history of cardiovascular disease, Onset Age: 86 Mother Hypertension Family history of kidney disease Familial primary pulmonary hypertension Grandparent Diabetes mellitus Social History Social History Smoking status: Never smoker Second hand tobacco smoke exposure: No Alcohol intake: never Substance use: never Lack of Transportation: No Lack of Food: Never True Current Housing: I Have Housing Concerned About Future Housing: No Difficulty Paying Gas/Electric Bills: No Difficulty Paying for Meds: No Currently Unemployed: No Education: Associate Degree Difficulty w/ Childcare or Family Care: No Living arrangements: with family Gender identity (if verbalized by the patient): Male Sexual Orientation (if Verbalized by the Patient): Straight or Heterosexual Spiritual care concerns: No Exam Const: General: cooperative, healthy appearing, comfortable, no acute distress and well developed Orientation/consciousness: patient oriented x3 HENMT: Head: normal to inspection Ears: TM normal on the left and TM abnormal bulging on the right and erythematous Eyes: General: appearance normal, both eyes and all related structures Resp: Effort & Inspection: normal respiratory effort and able to speak in complete sentences Auscultation: clear to auscultation bilaterally Cardio: Rate: regular rate Rhythm: regular rhythm Heart sounds: S1 normal heart sound present and S2 normal heart sound present Skin: General skin exam: normal color Neuro: General: patient oriented x3 Cognition (Neuro): normal cognition Speech: normal speech Psych: Mental Status: mental status grossly normal Course Course Level of Care: Express Care Visit Vital Signs Vital signs: Vital Signs Temperature 97.1 F L 05/02/24 14:10 Pulse Rate 66 05/02/24 14:10 Respiratory Rate 16 05/02/24 14:10 Blood Pressure 102/80 05/02/24 14:10 Pulse Oximetry 99 05/02/24 14:10 Temperature 97.1 F L 05/02/24 14:10 Pulse Rate 66 05/02/24 14:10 Respiratory Rate 16 05/02/24 14:10 Blood Pressure 102/80 05/02/24 14:10 Pulse Oximetry 99 05/02/24 14:10 Medical Decision Making MDM Narrative Medical decision making narrative: 69-year-old male HPI started. Differentials include right ear pain, acute otitis media, acute otitis externa, sinusitis. Right tympanic membrane erythematous and bulging consistent with acute otitis media will treat as such. Vital Signs Vital Signs: Vital Signs Temperature 97.1 F L 05/02/24 14:10 Pulse Rate 66 05/02/24 14:10 Respiratory Rate 16 05/02/24 14:10 Blood Pressure 102/80 05/02/24 14:10 Pulse Oximetry 99 05/02/24 14:10 Temperature 97.1 F L 05/02/24 14:10 Pulse Rate 66 05/02/24 14:10 Respiratory Rate 16 05/02/24 14:10 Blood Pressure 102/80 05/02/24 14:10 Pulse Oximetry 99 05/02/24 14:10 Discharge Plan Discharge Clinical Impression: Acute otitis media Qualifiers: Laterality: right Patient Disposition: Home, Self-Care Condition: Stable Instructions: Antibiotic Form, Amoxicillin/Clavulanate Potassium (By mouth), Ear Infection (ED) Additional Instructions: tylenol as needed for pain or fever. make sure to finish your antibiotics even if feeling better. I do encourage probiotics with antibiotic usage. Contact primary care if diarrhea that is mucousy starts further testing might be needed. Patient Language: Sami Prescriptions: New amoxicillin-pot clavulanate 875-125 mg tablet 1 tablet PO Q12H 7 Days Qty: 14 0RF No Action Ozempic 2 mg/dose (8 mg/3 mL) pen injector 2 mg SUBCUT WEEKLY spironolactone 25 mg tablet 25 mg PO DAILY atorvastatin 40 mg tablet 40 mg PO QHS Entresto 97-103 mg tablet 1 tablet PO BID Jardiance 10 mg tablet 10 mg PO DAILY aspirin 81 mg tablet,delayed release (DR/EC) 81 mg PO DAILY sildenafil 100 mg tablet 100 mg PO DAILY PRN (Reason: sexual activity) Qty: 20 0RF Rx Instructions: administer 30 minutes to 4 hours before activity cholecalciferol (vitamin D3) 50 mcg (2,000 unit) tablet 50 mcg PO DAILY furosemide 40 mg tablet 80 mg PO DAILY calcium carbonate 600 mg calcium (1,500 mg) tablet 600 mg PO DAILY Qty: 90 1RF Follow-up/Referrals: Theresa Hicks DO [Primary Care Provider] - 2 Weeks Time of Disposition: 14:58
== END 2024-05-02 15:02 | disposition home or self-care (01) ==
PROVIDERS: Emergency Provider Nurse Practitioner Family; PCP Family Medicine
DX: H66.91 Otitis media, unspecified, right ear (principal); I13.0 Hypertensive heart and chronic kidney disease with heart failure and stage 1 through stage 4 chronic kidney disease, or unspecified chronic kidney disease; N18.30 Chronic kidney disease, stage 3 unspecified; I50.30 Unspecified diastolic (congestive) heart failure; M19.90 Unspecified osteoarthritis, unspecified site; E78.00 Pure hypercholesterolemia, unspecified; Z86.2 Personal history of diseases of the blood and blood-forming organs and certain disorders involving the immune mechanism; Z79.82 Long term (current) use of aspirin
CPT/HCPCS: 99213; G0463

== ENCOUNTER 2024-08-14 08:17 | Outpatient (CLI) | payer MEDICARE, SELFPAY ==
--- NOTE | ~2024-08-14 | DEXA_ITS ---
Bone Density Report Name: ASHA REILLY Age: 69 Sex: Male Ethnicity: White Date of : 1955 Indication: screening for osteoporosis; Referring Provider: [facility] Study: Bone densitometry was performed. Exam Date: August 14, 2024 Accession number: [id number] Bone Density: Region BMD T-score Z-score Classification AP Spine(L1-L4) 0.932 -1.4 -0.5 Osteopenia Femoral Neck (Left) 0.735 -1.4 -0.2 Osteopenia Total Hip (Left) 0.930 -0.7 0.0 Normal Femoral Neck (Right) 0.659 -2.0 -0.8 Osteopenia Total Hip (Right) 0.890 -0.9 -0.3 Normal Femoral Neck Mean 0.697 -1.7 -0.5 Osteopenia Total Hip Mean 0.910 -0.8 -0.1 Normal World Health Organization criteria for BMD impression classify patients as: Normal (T-score at or above -1.0), Osteopenia (T-score between -1.0 and -2.5), or Osteoporosis (T-score at or below -2.5). 10-year Fracture Risk(1): Major Osteoporotic Fracture 7.3% Hip Fracture 1.9% Reported Risk Factors: [place] (), Neck BMD=0.659, BMI=35.9 Input outside FRAX(R) limits. Adjusted to:Wyvmgo=113 kg (1) FRAX(R) Version 3.08. Fracture probability calculated for an untreated patient. Fracture probability may be lower if the patient has received treatment. Clinical Information Provided by Patient: Has used the following medications: Vitamin D, Calcium Patient maximum height was 74 No regular weight bearing exercise Drinks caffeinated beverages Impression: The patient has low bone mass, based on the Right Femoral Neck T-score. Discussion: BONE DENSITY IS LOW AT ONE OR MORE SKELETAL SITES. This patient's lowest T-score is low at one or more skeletal sites. It meets the World Health Organization's (WHO) criteria for ?low bone mass? (T-score between -1.0 and -2.5). The patient's 10-year risk of fracture as calculated by FRAX is less than the threshold where pharmacological therapy is recommended by the National Osteoporosis Foundation (NOF). However, all treatment decisions require clinical judgment and consideration of individual patient factors, including patient preferences, comorbidities, previous drug use, risk factors not captured in the FRAX model (e.g., frailty, falls, vitamin D deficiency, increased bone turnover, interval significant decline in bone density) and possible under or overestimation of fracture risk by FRAX. The patient should follow a healthful lifestyle (good nutrition with adequate calcium and vitamin D, and appropriate weight-bearing exercise). Follow-Up: Consider repeating this study in 2 to 3 years to reassess this patient's status, or sooner if there is some new clinical indication. Reported by: DAYAMI on 08/14/2024 8:44:00 AM. Reviewed, dictated and finalized at location A.
--- OUTSIDE RECORDS SUMMARY | 2024-08-14 08:24 | XMS_ITS | Clinical Summary ---
Author Organization [facility] Address [address] [place] [address] Care Team Providers Care Solicitor Patent Name Role Phone Abdiaziz Wisdom MD Primary Care Provider [phone] Source Comments [facility],non-owned Affiliates and Associated Physician Practices is amultiple site organization consisting of ambulatory clinics and hospital sitesin [place], [place], [place] and [place]. This disclosure is being madepursuant to the Care Everywhere program and may not contain all information available regarding this patient. Last updated 17[facility] Active Problems Problem Noted Date Diagnosed Date Jaundice 12/23/2014 Family History Medical History Relation Name Comments None Known Brother Status: Alive Heart Disease Father Atrial Fibrill ation, pacemaker Hypertension Father Status: Alive Heart Disease Mother Hypertension Mother Kidney Disease Mother Status: Decea sed None Known Sister Status: Alive Relation Name Status Comments Brother Father Mother Sister Social History Tobacco Use Types Packs/Day Years Used Date Smoking Tobacco: Never Smokeless Tobacco: Never Alcohol Use Standard Drinks/Week Comments No 0 (1 standard drink = 0.6 oz pur e alcohol) Sex and Gender Information Value Date Recorded Sex Assigned at Not on file 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 Gender Identity Not on file Sexual Orientation Not on file Last Filed Vital Signs Vital Sign Reading Time Taken Comments Blood Pressure 178/84 12/23/2014 10:48 AM CDT Pulse 60 12/23/2014 10:48 AM CDT Temperature 36.6 C (97.8 F) 12/23/2014 10:48 AM CDT Respiratory Rate 16 12/23/2014 10:4 8 AM CDT Oxygen Saturation - - Inhaled Oxygen Concentration - - Weight 116.2 kg (256 lb 1.6 oz) 015 10:48 AM CDT Height 188 cm (6' 2) 12/23/2014 10:48 AM CDT Body Mass Index 32.88 12/23/2014 10:48 AM CDT Plan of Treatment Health Maintenance Due Date Last Done Comments COLOGUARD (AGES 45-75) - COL ON CA SCREENING 1955 COLON MONITORING 1955 COLONOSCOPY - COLON CA SCREENING 1955 CT COLONOGRAPHY - COLON CA SCREENING 1955 Colorectal Cancer Screening 1955 FIT - COLON CA SCREENING 1955 FLEX SIG - COLON CA SCREENING 1955 LIPID TESTING 1955 HEPATITIS C SCREENING 01/19/1972 DTAP/TDAP/TD VACCINES (1 - Tdap) 1973 PNEUMOCOCCAL VACCINE 50+ (1 of 1 - PCV) 01/24/2004 ZOSTER VACCINE (1 of 2) 01/24/2004 COVID-19 VACCINE (1 - 2023-2 5 season) 2023 DEPRESSION SCREENING 02/26/2024 INFLUENZA VACCINE (Season Ended) 2024 Respiratory Syncytial Virus (RSV) Vaccine Pt: or over 60 yrs (1 - 1-dose 75+ series) 2029 HEPATITIS B VACCINE Aged Out No longe r eligible based on patient's age to complete this topic HIB VACCINE Aged Out No longer eligi ble based on patient's age to complete this topic HPV VACCINE Aged Out No longer eligi ble based on patient's age to complete this topic MENINGOCOCCAL (Group B) VACC INE SHARED DECISION-MAKING Aged Out No longer eligibl e based on patient's age to complete this topic MENINGOCOCCAL GROUPS A/C/Y/W VACCINE Aged Out No longer eligible b ased on patient's age to complete this topic Insurance MEDICARE Care Teams Solicitor Patent Relationship Specialty Start Date End Date Abdiaziz Wisdom MD [address] [address] PCP - General 12/27/14
--- OUTSIDE RECORDS SUMMARY | 2024-08-14 08:24 | XMS_ITS | Clinical Summary ---
Author Organization [facility] Address [address] [place] [id number] Phone Care Team Providers Care Network Solutions Architect Name Role Phone Theresa Hicks MD Primary Care Provider [phone] Allergies Active Allergy Reactions Criticality Noted Date Comments Lisinopril Cough Low 02/11/2020 Medications atorvastatin (LIPITOR) 10 MG tablet Take 10 mg by mouth 1 (one) time each day 06/19/2020 Active furosemide (LASIX) 40 MG tablet Take 40 mg by mouth 1 (one) time each day 05/31/2020 Active losartan (COZAAR) 100 MG tablet Take 100 mg by mouth 1 (one) time each day 05/20/2020 Active spironolactone (ALDACTONE) 25 MG tablet Take 25 mg by mouth 1 (one) time each day 05/04/2020 Active Active Problems Problem Noted Date Diagnosed Date Small bowel obstruction 09/14/2020 Nonspecific abnormal results of function study o f kidney 07/27/2020 Edema, generalized 07/27/2020 Dyspnea on exertion 07/21/2020 Jaundice 12/23/2014 Family History Medical History Relation Comments Kidney disease Father Kidney disease Mother Relation Status Comments Father Mother Social History Tobacco Use Types Packs/Day Years Used Date Smoking Tobacco: Never Smokeless Tobacco: Never Alcohol Use Standard Drinks/Week Comments Not Currently 0 (1 standard drink = 0.6 oz pur e alcohol) Sex and Gender Information Value Date Recorded Sex Assigned at Not on file Legal Sex Male 12:29 PM MDT Gender Identity Not on file Sexual Orientation Not on file Last Filed Vital Signs Vital Sign Reading Time Taken Comments Blood Pressure 126/78 05/29/2021 3:03 PM CDT Pulse 60 05/29/2021 3:03 PM CDT Temperature 36.2 C (97.2 F) 05/29/2021 3:03 PM CDT Respiratory Rate - - Oxygen Saturation - - Inhaled Oxygen Concentration - - Weight 116 kg (255 lb) 05/29/2021 3:03 PM CDT Height 188 cm (6' 2) 05/29/2021 3:03 PM CDT Body Mass Index 32.74 05/29/2021 3:03 PM CDT Plan of Treatment Health Maintenance Due Date Last Done Comments Pneumococcal PPSV23/PCV13 65 + Years / Low and Medium Risk (1 of 2 - PCV) 01/24/2004 Influenza Vaccine (Season Ended) 2024 Insurance MEDICARE [facility] Care Teams Network Solutions Architect Relationship Specialty Start Date End Date Theresa Hicks MD [address] [place] [address] PCP - General Family Medicine 07/01/20
== END 2024-08-14 08:18 | disposition home or self-care (01) ==
LOC: CHSIMG 08:19
PROVIDERS: PCP Family Medicine; Visit Provider Nurse Practitioner
DX: M85.89 Other specified disorders of bone density and structure, multiple sites (principal)
CPT/HCPCS: 77080

== ENCOUNTER 2024-11-05 14:57 | Outpatient (CLI) | payer MEDICARE, SELFPAY ==
--- NOTE | ~2024-11-05 | XR_ITS ---
EXAMINATION: XR knee LT min 4V, 11/05/2024 15:16 CDT HISTORY: W19.XXXA - Unspecified fall, initial encounter COMPARISON: No comparisons available. Findings: No acute fracture or malalignment. No significant degenerative changes. Soft tissues unremarkable. Impression: No acute fracture or malalignment. Reviewed, dictated and finalized at location A. Impression: No acute fracture or malalignment.
--- NOTE | ~2024-11-05 | XR_ITS ---
EXAMINATION: XR hip BI 2V w AP pelvis, 11/05/2024 15:16 CDT HISTORY: W19.XXXA - Unspecified fall, initial encounter COMPARISON: No comparisons available. Findings: No acute fracture or malalignment. No significant degenerative changes. Soft tissues unremarkable. Impression: No acute fracture or malalignment. Reviewed, dictated and finalized at location A. Impression: No acute fracture or malalignment.
--- NOTE | ~2024-11-05 | XR_ITS ---
EXAMINATION: XR knee RT min 4V, 11/05/2024 15:16 CDT HISTORY: W19.XXXA - Unspecified fall, initial encounter COMPARISON: No comparisons available. Findings: No acute fracture or malalignment. Moderate tricompartmental degenerative changes Soft tissues unremarkable. Impression: No acute fracture or malalignment. Reviewed, dictated and finalized at location A. Impression: No acute fracture or malalignment.
--- NOTE | ~2024-11-05 | XR_ITS ---
EXAMINATION: XR ankle LT min 3V, 11/05/2024 15:16 CDT HISTORY: W19.XXXA - Unspecified fall, initial encounter COMPARISON: No comparisons available. Findings: Remote corticated fracture lateral malleolus, no acute fracture identified. No significant degenerative changes. Soft tissue swelling. Impression: No acute fracture or malalignment. Reviewed, dictated and finalized at location A. Impression: No acute fracture or malalignment.
--- NOTE | ~2024-11-05 | XR_ITS ---
EXAMINATION: XR ankle RT min 3V, 11/05/2024 15:16 CDT HISTORY: W19.XXXA - Unspecified fall, initial encounter COMPARISON: No comparisons available. Findings: No acute fracture or malalignment. No significant degenerative changes. Soft tissues unremarkable. Impression: No acute fracture or malalignment. Reviewed, dictated and finalized at location A. Impression: No acute fracture or malalignment.
--- NOTE | ~2024-11-05 | XR_ITS ---
EXAMINATION: XR foot LT min 3V, 11/05/2024 15:16 CDT HISTORY: W19.XXXA - Unspecified fall, initial encounter COMPARISON: No comparisons available. Findings: No acute fracture or malalignment. No significant degenerative changes. Soft tissues unremarkable. Impression: No acute fracture or malalignment. Reviewed, dictated and finalized at location A. Impression: No acute fracture or malalignment.
--- NOTE | ~2024-11-05 | XR_ITS ---
EXAMINATION: XR foot RT min 3V, 11/05/2024 15:16 CDT HISTORY: Unspecified fall, initial encounter, fell 3 weeks ago COMPARISON: No comparisons available. Findings: No acute fracture or malalignment. No significant degenerative changes. Soft tissues unremarkable. Impression: No acute fracture or malalignment. Reviewed, dictated and finalized at location A. Impression: No acute fracture or malalignment.
== END 2024-11-05 14:58 | disposition home or self-care (01) ==
LOC: GOSHIMG 15:00
PROVIDERS: PCP Family Medicine; Visit Provider Family Medicine
DX: M25.551 Pain in right hip (principal); M25.552 Pain in left hip; M25.561 Pain in right knee; M25.562 Pain in left knee; M25.571 Pain in right ankle and joints of right foot; M25.572 Pain in left ankle and joints of left foot; M79.671 Pain in right foot; M79.672 Pain in left foot; R22.43 Localized swelling, mass and lump, lower limb, bilateral; R10.31 Right lower quadrant pain; R10.32 Left lower quadrant pain
CPT/HCPCS: 73521; 73564; 73610; 73630

== ENCOUNTER 2024-11-06 13:59 | Outpatient (CLI) | payer MEDICARE, SELFPAY ==
--- NOTE | ~2024-11-06 | US_ITS ---
EXAMINATION:US venous doppler LE BI INDICATION:Bilateral leg edema TECHNIQUE: Multiple grayscale, color flow and Doppler images of the right and left lower extremity deep venous systems were obtained and reviewed. COMPARISON:No prior studies for comparison. FINDINGS: The common and popliteal veins demonstrate normal respiratory variation, augmentation and compressibility. Color flow is also seen within the posterior tibial, peroneal, greater saphenous and profunda veins. There is deep venous thrombosis of the superficial femoral vein. There is no evidence for deep venous thrombosis in the left lower extremity. IMPRESSION: 1: Deep venous thrombosis of the right superficial femoral vein. Urgent findings will be communicated stat by phone to patient's healthcare provider while the patient remains in radiology department. Reviewed, dictated and finalized at location O. IMPRESSION: 1: Deep venous thrombosis of the right superficial femoral vein. Urgent findings will be communicated stat by phone to patient's healthcare prov ider while the patient remains in radiology department.
--- OUTSIDE RECORDS SUMMARY | 2024-11-06 09:30 | XMS_ITS | Encounter Summary ---
Author Organization [facility] Healthcare Address [address] [place] [address] Care Team Providers Care Manager Package Name Role Phone Theresa Hicks Primary Care Provider [phone] Cecelia Conley MD Unavailable [phone] Travon Bolaños MD Unavailable Encounter Details Date Type Department Care Team (Late st Contact Info) Description 11/06/2024 9:30 AM CDT Office Visit [facility] [address] [place] [address] Pinky Dunlap MD [address] [place] [address] [address] [place] [address] LENO on CPAP (Primary Dx); Hypersomnia; Severe obesity (BMI 35.0-35.9 with comorbidity) (FORMERLY [facility]) Social History Tobacco Use Types Packs/Day Years Used Date Smoking Tobacco: Never Smokeless Tobacco: Never Alcohol Use Standard Drinks/Week Comments Never 0 (1 standard drink = 0.6 oz pur e alcohol) Overall Financial Resource Strain (CARDIA) Answe r Date Recorded How hard is it for you to pa y for the very basics like food, housing, medical care, and heating? Not hard at all 09/15/2020 Hunger Vital Sign Answer Date Recorded Within the past 12 months, y ou worried that your food would run out before you got the money to buy more. Never true 09/16/19 21 Within the past 12 months, t he food you bought just didn't last and you didn't have money to get more. Never true 09/15/2020 PRAPARE - Transportation Answer Date Re corded In the past 12 months, has l ack of transportation kept you from medical appointments or from getting medications? No 08/26 In the past 12 months, has l ack of transportation kept you from meetings, work, or from getting things needed for daily living? No 09/15/2020 AUDIT-C Answer Date Recorded Q1: How often do you have a drink containing alc ohol? 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 Gender Identity Not on file Sexual Orientation Not on file documented as of this encounter Last Filed Vital Signs Vital Sign Reading Time Taken Comments Blood Pressure 132/78 11/06/2024 9:29 AM CDT Pulse 64 11/06/2024 9:29 AM CDT Temperature - - Respiratory Rate - - Oxygen Saturation 96% 11/06/2024 9:29 AM CDT Inhaled Oxygen Concentration - - Weight 133.6 kg (294 lb 9.6 oz) 11/06/2024 9:29 AM CDT Height - - Body Mass Index 37.82 08/07/2024 10:41 AM CDT documented in this encounter Functional Status documented as of this encounter Progress Notes * Pinky Dunlap MD - 11/06/2024 9:30 AM CDT HPI 1. Obstructive sleep apnea syndrome: Mr. Salinas is seen in follow-up evaluation. He was a pleasant 68-year-old gentleman with obstructive sleep apnea syndrome. Endorses continuous compliance with therapy. Reports that he goes to bed between 9-11 p.m., and awakens at 3:30 -6 a.m.. Takes 10-15 minutes to fall asleep. Continues to have restless sleep. Awakens unrested 2. Hypersomnia with sleep apnea: Following his last visit he was started on modafinil therapy. Reports significant response to [place] Sleepiness scale score is 11. 3. Severe obesity: Stable weight since last visit. Review of Systems BP 132/78 Pulse 64 Wt 133.6 kg (294 lb 9.6 oz) SpO2 96% BMI 37.82 kg/m?? Physical Exam Constitutional: Pleasant obese gentleman no distress HENT: Head: Normocephalic and atraumatic. Mouth/Throat: Oropharynx is clear and moist. Eyes: Conjunctivae and EOM are normal. eye exhibits no discharge. No scleral icterus. Neck: Normal range of motion. Neck supple. No thyromegaly present. Cardiovascular: Normal rate, regular rhythm and normal heart sounds. Exam reveals no gallop and no friction rub. No murmur heard. Pulmonary/Chest: Effort normal and breath sounds normal. No respiratory distress. has no wheezes. has no rales. Exhibits no tenderness. Abdominal: Soft. exhibits no distension and no mass. There is no tenderness. Musculoskeletal: Normal passive range of movements; no muscle tenderness Neurological: Alert and oriented to person, place, and time. No cranial nerve deficit. Exhibits normal muscle tone. Skin: Skin is warm. No rash noted. No erythema. Psychiatric: normal mood and affect. Judgment normal. AP 1. Obstructive sleep apnea syndrome: Endorses compliance with positive pressure therapy. Compliancedownload reveals compliance and effective therapy. Advised to continue positive pressure therapy compliance. The physiology of sleep disordered breathing and its increased association with hypertension, diabetes, heart arrhythmia, strokes, heart attacks, heart failure, hypersomnia, obesity and mooddisorders was discussed. Patient's compliance download from 10/06/2024-11/04/2024 was reviewed. 93% averaging 5 hours and 33minute of therapy . Residual AHI 0.2.. 2. Hypersomnia: Significant response to modafinil. [place] Sleepiness scale score improved from 18-11. No side effects of therapy continue to monitor. 3. Severe obesity: Stable weight since last visit. documented in this encounter Plan of Treatment Not on file documented as of this encounter Visit Diagnoses Diagnosis LENO on CPAP- Primary Hypersomnia Circadian rhythm sleep disorder, shift work type Severe obesity (BMI 35.0-35.9 with comorbidity) ([facility]LY [facility]) documented in this encounter Care Teams Manager Package Relationship Specialty Start Date End Date Theresa Hicks DO PCP - General Family Medicine 02/11/20 Cecelia Conley MD Surgeon Cardiothoracic Surgery 10/28/20 Travon Bolaños MD [address] [facility] [address] [place] [address] Consulting Physician Cardiology 11/26/23 documented as of this encounter
--- OUTSIDE RECORDS SUMMARY | 2024-11-06 14:47 | XMS_ITS | Clinical Summary ---
Author Organization [facility] Address [address] [facility] [place] [address] Care Team Providers Care Residential Collections Name Role Phone Abdiaziz Wisdom MD Primary Care Provider [phone] Source Comments [facility],non-owned Affiliates and Associated Physician Practices is amultiple site organization consisting of ambulatory clinics and hospital sitesin [place], [place], [place] and [place]. This disclosure is being madepursuant to the Care Everywhere program and may not contain all information available regarding this patient. 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
--- OUTSIDE RECORDS SUMMARY | 2024-11-06 14:47 | XMS_ITS | Clinical Summary ---
Author Organization [facility] Address [address] [place] [address] Phone Care Team Providers Care Mobility Architect Name Role Phone Theresa Hicks MD Primary Care Provider [phone] Allergies Active Allergy Reactions Criticality Noted Date [...] of 2 - PCV) 01/24/2004 Influenza Vaccine (#1) 2024 Insurance MEDICARE [facility] Care Teams Mobility Architect Relationship Specialty Start Date End Date Theresa Hicks MD [address] [place] [address] PCP - General Family Medicine 07/01/20
--- OUTSIDE RECORDS SUMMARY | 2024-11-06 14:47 | XMS_ITS | Clinical Summary ---
Author Organization [facility] [address] Address [address] [place] [address] Care Team Providers Care Meter Record Clerk Name Role Phone Theresa Hicks Primary Care Provider [phone] Cecelia Conley MD Unavailable [phone] Travon Bolaños MD Unavailable Allergies Active Allergy Reactions Criticality Noted Date Comments Lisinopril Cough Low 02/11/2020 Medications psyllium, aspartame, SF (METAMUCIL SF) 3.4 gram packet Take 1 packet by mouth daily 15 packet 09/17/2020 Active acetaminophen (TYLENOL) 32 mg/mL Take 20.3 mL (650 mg total) by mouth every 6 (six) hours as needed for pain 10/28/2020 Active calcium carbonate (OS-DAMARI) 1,500 mg (600 mg elemental) tablet Take 1 tablet (1,500 mg total) by mouth daily 10/16/2021 Active cholecalciferol (VITAMIN D-3) 2000 unit tablet Take 1 tablet (2,000 Units total) by mouth daily 10/16/2021 Active Entresto 97-103 mg tablet TAKE 1 TABLET BY MOUTH TWICE A DAY 180 tablet 6 09/26/2023 Active aspirin 81 mg enteric coated tablet TAKE 1 TABLET BY MOUTH EVERY DAY 90 tablet 3 05/20/2024 Active spironolactone (ALDACTONE) 25 mg tablet Take 1 tablet (25 mg total) by mouth daily 90 tablet 3 06/02/2024 Active semaglutide (Ozempic) 2 mg/dose (8 mg/3 mL) pen injector injection INJECT 0.75 ML (2 MG TOTAL) UNDER THE SKIN ONCE A WEEK 3 mL 3 08/04/2024 Active solriamfetoL (Sunosi) 150 mg tablet Take 1 tablet (150 mg total) by mouth daily 30 tablet 08/07/2024 Active atorvastatin (LIPITOR) 40 mg tablet TAKE 1 TABLET BY MOUTH EVERY DAY 90 tablet 1 08/17/2024 Active Jardiance 10 mg tablet TAKE 1 TABLET BY MOUTH EVERY DAY 90 tablet 1 08/17/2024 Active furosemide (LASIX) 40 mg tablet TAKE 1 TABLET BY MOUTH EVERY DAY 90 tablet 1 08/26/2024 Active modafiniL (PROVIGIL) 200 mg tabletIndication s:Narcolepsy without cataplexy(347.00 ) TAKE 1 TABLET (200 MG TOTAL) BY MOUTH 2 TIMES A DAY. - TAKE THE SECOND DOSE AFTER 2PM 60 tablet 10/06/2024 Active Active Problems Problem Noted Date Diagnosed Date LENO (obstructive sleep apnea) 12/04/2023 SBO (small bowel obstruction) 09/14/2020 Hiatal hernia 09/01/2020 Overview (09/01/2020): Added automatically from request for surgery [id number] CUMMINS (dyspnea on exertion) Encounters Date Type Department Care Team Description 11/06/2024 9:30 AM CDT Office Visit [facility] [address] [place] [address] [address] [address] Pinky Dunlap MD LENO on CPAP (Primary Dx); Hypersomnia; Severe obesity (BMI 35.0-35.9 with comorbidity) ([facility]) 08/19/2024 Telephone [facility] [address] [place] [address] [address] [place] [address] Dominique Landis MA 08/14/2024 Telephone [facility] [address] [place] [address] Katlin Hunter MA 08/07/2024 10:30 AM CDT Office Visit [facility] [address] [place] [address] [address] [place] [address] Pinky Dunlap MD Narcolepsy without cataplexy(347.00) (Primary Dx); LENO on CPAP; Severe obesity (BMI 35.0-35.9 with comorbidity) (HCC) from Last 3 Months Surgical History Surgery Date Site/Laterality Comments CHOLECYSTECTOMY HERNIA REPAIR Medical History Medical History Date Comments Hypertension Hyperlipidemia Covid-19 11/2019 Hiatal hernia GERD (gastroesophageal reflux disease) Sleep apnea uses C pap CHF (congestive heart failure) (HCC) CKD (chronic kidney disease) stage 3, GFR 30-59 ml/min ([facility]) Cardiomegaly Family History Medical History Relation Name Comments Atrial fibrillation Father Enoch CHF Father Enoch Clotting disorder Father Enoch Heart disease Father Enoch Kidney disease Father Enoch Heart attack Mother Sheela Heart disease Mother Sheela Hypertension Mother Sheela Kidney disease Mother Sheela Relation Name Status Comments Father Enoch Mother Sheela Social History Tobacco Use Types Packs/Day Years Used Date Smoking Tobacco: Never Smokeless Tobacco: Never Tobacco Cessation:Counseling Given: Not Answered Alcohol Use Standard Drinks/Week Comments Never 0 [...] Frequency of Binge Drinking Not on file 09/1 03/2024 Sex and Gender Information Value Date Recorded Sex Assigned at Not on file 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 Gender Identity Not on file Sexual Orientation Not on file Obstetrics History Last Filed Vital Signs Vital Sign Reading Time Taken Comments Blood Pressure 132/78 11/06/2024 9:29 AM CDT Pulse 64 11/06/2024 9:29 AM CDT Temperature 36.6 C (97.9 F) 02/12/2022 9:13 AM WOOL HAT FINISHER Respiratory Rate 14 04/23/2023 9:15 AM WOOL HAT FINISHER Oxygen Saturation 96% 11/06/2024 9:29 AM CDT Inhaled Oxygen Concentration - - Weight 133.6 kg (294 lb 9.6 oz) 11/06/2024 9:29 AM CDT Height 188 cm (6' 2) 08/07/2024 10:41 AM CDT Body Mass Index 37.82 08/07/2024 10:41 AM CDT Plan of Treatment Health Maintenance Due Date Last Done Comments Colon Cancer Screening-Colonoscopy 1955 Depression Screening 1955 Hepatitis C Screening 1955 Hepatitis B Screening 01/24/1972 Pneumococcal vaccine 65+ (1 of 2 - PCV) 1973 Zoster Vaccine (1 of 2) 01/24/2004 Well Visit 65+ 2019 Fall Risk Assessment 04/23/2024 04/23/2023, 10/28/2020, 02/29/2020 Covid-19 Vaccine (3 - 2024-2 6 season) 2024 05/20/2020, 04/29/2020 Influenza Vaccine (#1) 2024 3, 12/23/2019, 11/30/2019, Additional history exists DTaP/Tdap/Td Vaccine (2 - Td or Tdap) 12/24/2024 12/24/2014 Insurance MEDICARE MEDICARE [facility] MEDICARE SUPPLEMENT INSURANCE MEDICARE BLUE CROSS MEDICARE SUPPLEMENT Advance Directives For more information, please contact: [phone] * Full Code (Latest Code Status on File) Date Activated Date Inactivated Comments 10/26/2020 2:44 PM 10/28/2020 9:02 PM * Full Code Date Activated Date Inactivated Comments 09/14/2020 11:49 PM 09/17/2020 8:46 PM Care Teams Meter Record Clerk Relationship Specialty Start Date End Date Theresa Hicks DO PCP - General Family Medicine 02/11/20 Cecelia Conley MD Surgeon Cardiothoracic Surgery 10/28/20 Travon Bolaños MD [address] [facility] [address] [place] [address] Consulting Physician Cardiology 11/26/23
== END 2024-11-06 14:00 | disposition home or self-care (01) ==
PROVIDERS: PCP Family Medicine; Visit Provider Family Medicine
DX: M79.89 Other specified soft tissue disorders (principal); I82.411 Acute embolism and thrombosis of right femoral vein
CPT/HCPCS: 93970

== ENCOUNTER 2024-11-16 13:06 | Emergency (ER) | payer MEDICARE, SELFPAY ==
[2024-11-16] VITALS (7 sets, daily range): BP systolic 130–160; BP diastolic 69–98; PULSE 59–78; RESP 18–20; TEMP 36.7; O2SAT 97–100
--- NOTE | ~2024-11-16 | CT_ITS ---
CTA CHEST CLINICAL HISTORY: dvt R thigh, increasing sob . COMPARISON: CTA chest 11/17/2021 TECHNIQUE: Helical CTA performed from thoracic inlet to upper abdomen IV contrast information not listed in PACS Coronal, sagittal reformats. Multiplanar MIPS CT images acquired with automatic exposure control for dose reduction DLP: 1025 mGy-cm FINDINGS: Pulmonary arteries: No PE. Thoracic Aorta: No dissection or aneurysm. Heart/pericardium: Enlarged. Coronary artery calcifications. RV/LV ratio: Normal. Lungs/Pleura: Mild streaky bibasilar atelectasis. Tracheobronchial tree: Patent. Nodes: No enlarged nodes. Left hilar calcifications. Bones: No acute bony abnormality. Soft tissues: Unremarkable. Visualized upper abdomen: Hiatal hernia. Postop changes GE junction. Multiple cysts left kidney. Small focus within liver too small to characterize. IMPRESSION: 1. No PE or other acute cardiopulmonary findings. Reviewed, dictated and finalized at location R.
--- OUTSIDE RECORDS SUMMARY | 2024-11-16 13:34 | XMS_ITS | Clinical Summary ---
Author Organization [facility] Address [address] [place] [address] Phone Care Team Providers Care Clinical Neuropsychologist Name Role Phone Theresa Hicks MD Primary Care Provider [phone] Allergies Active Allergy Reactions Criticality Noted Date [...] 01/24/2004 Influenza Vaccine (#1) 2024 Insurance MEDICARE [facility] Care Teams Clinical Neuropsychologist Relationship Specialty Start Date End Date Theresa Hicks MD [address] [place] [address] PCP - General Family Medicine 07/01/20
--- OUTSIDE RECORDS SUMMARY | 2024-11-16 13:34 | XMS_ITS | Clinical Summary ---
Author Organization [facility] Address [address] [place] [address] Care Team Providers Care Volunteer Manager Name Role Phone Abdizaiz Wisdom MD Primary Care Provider [phone] Source Comments [facility],non-owned Affiliates and Associated Physician Practices is amultiple site organization consisting of ambulatory clinics and hospital sitesin [place], [place], [place] and [place]. This disclosure is being madepursuant to the Care Everywhere program and may not contain all information available regarding this patient. 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
--- NOTE | 2024-11-16 13:52 | ECG_ITS ---
Test Date: 2024-11-16 14:01:23 Measurements Intervals [place] Rate: 70 P: 52 GA: 207 QRS: 33 QRSD: 154 T: 27 QT: 459 QTc: 496 Interpretive Statements SINUS RHYTHM RIGHT BUNDLE BRANCH BLOCK [120+ ms QRS DURATION, UPRIGHT V1, 40+ ms S IN I/aVL/V4/V5/V6] No previous ECG available for comparison Electronically Signed On 11-16-2024 14:46:05 CDT by Nasir Quick M.D.
--- NOTE | 2024-11-16 13:52 | ED.SOB ---
HPI - SOB/Dyspnea General Chief Complaint: Shortness of Breath/Dyspnea <ANNAMARIA Grande Last Filed: 11/16/24 13:59> Stated Complaint: Known DVT R leg-increasing SHOB <ANNAMARIA Grande Last Filed: 11/16/24 13:59> Time Seen by Provider: 11/16/24 13:50 <ANNAMARIA Grande Last Filed: 11/16/24 13:59> Focused HPI: Patient is a 69 y/o male, with PMH of CHF, who presents to the ED with c/o SOB. Patient reports he was diagnosed with a DVT in his R thigh on 11/06. Started on xarelto. Has been taking this as prescribed, currently still on BID dosing. Reports over the past 4 days, he has had increased SOB. Worse with exertion. Also reports increased swelling in his R lower leg, episode of midsternal CP dull/aching - lasted for 4-5 minutes before resolving. Denies current chest pain. Hx of previous blood clots in the past. Had travelled recently. GENERAL: Well-appearing, obese with BMI of 38.2, and in no acute distress. HEAD: Normocephalic, atraumatic. CHEST: Clear to auscultation. ?No respiratory distress. No focal lung sounds. HEART: Regular rate and rhythm.? MSK: Diffuse swelling throughout R lower leg, no significant tenderness. NEURO: ?Alert and oriented x3. Patient screened in triage and initial orders placed.? ?Additional care and disposition to be based upon?diagnostic testing and treatment. <ANNAMARIA Grande Last Filed: 11/16/24 13:59> Source: patient <ANNAMARIA Grande Last Filed: 11/16/24 13:59> Mode of arrival: ambulatory <ANNAMARIA Grande Last Filed: 11/16/24 13:59> Limitations: no limitations <ANNAMARIA Grande Last Filed: 11/16/24 13:59> Related Data Home Medications: Home Medications ?Medication ?Instructions ?Recorded ?Confirmed ?Last Taken ?Type spironolactone 25 mg tablet 25 mg PO DAILY 06/20/20 11/05/24 01/23/22 07:34 History aspirin 81 mg tablet,delayed 81 mg PO DAILY 12/22/21 11/05/24 01/22/22 History release atorvastatin 40 mg tablet 40 mg PO QHS 04/27/22 11/05/24 Unknown History sacubitril 97 mg-valsartan 103 mg 1 tablet PO BID 09/21/22 11/05/24 Unknown History tablet (Entresto) empagliflozin 10 mg tablet 10 mg PO DAILY 07/11/23 11/05/24 Unknown History (Jardiance) cholecalciferol (vitamin D3) 50 50 mcg PO DAILY 11/15/23 11/05/24 Unknown History mcg (2,000 unit) tablet furosemide 40 mg tablet 80 mg PO DAILY 03/06/24 11/05/24 Unknown History semaglutide 2 mg/dose (8 mg/3 mL) 2 mg subcut WEEKLY 05/02/24 11/05/24 Unknown History subcutaneous pen injector (Ozempic) modafinil 200 mg tablet mg PO 11/05/24 11/05/24 Unknown History <Stephanie Perdomo PA-C - Last Filed: 11/16/24 13:59> Allergies/Adverse Reactions: Allergies Allergy/AdvReac Type Severity Reaction Status Date / Time lisinopril AdvReac Unknown cough Verified 11/16/24 13:08 <Stephanie Perdomo PA-C - Last Filed: 11/16/24 13:59> [facility] Past Medical History Medical History: Medical History Hepatitis C antibody test negative (01/08/17) Diastolic congestive heart failure History of cardiac disorder Positive colorectal cancer screening using Cologuard test Arthritis History of blood clots LLE DVT 2009 High cholesterol HTN (hypertension) Chronic kidney disease, stage 3 (moderate) Hypertensive chronic kidney disease with stage 1 through stage 4 chronic kidney disease, or unspecified chronic kidney disease <Stephanie Perdomo PA-C - Last Filed: 11/16/24 13:59> Surgical History Surgical History: Surgical History Hx of cholecystectomy (~1999) History of hernia repair <ANNAMARIA Grande Last Filed: 11/16/24 13:59> Family History Family History: Family History Father Hypertension Family history of elevated blood lipids Family history of cardiovascular disease, Onset Age: 86 Mother Hypertension Family history of kidney disease Familial primary pulmonary hypertension Grandparent Diabetes mellitus <ANNAMARIA Grande Last Filed: 11/16/24 13:59> Social History Social History: Social History Smoking status: Never smoker Second hand tobacco smoke exposure: No Alcohol intake: never Substance use: never Lack of Transportation: No Lack of Food: Never True Current Housing: I Have Housing Concerned About Future Housing: No Difficulty Paying Gas/Electric Bills: No Difficulty Paying for Meds: No Currently Unemployed: No Education: Associate Degree Difficulty w/ Childcare or Family Care: No Living arrangements: with family Gender identity (if verbalized by the patient): Male Sexual Orientation (if Verbalized by the Patient): Straight or Heterosexual Spiritual care concerns: No <ANNAMARIA Grande Last Filed: 11/16/24 13:59> Course Course Emergency Course: patient updated on his workup. We spoke about further inpatient evaluation/management versus close outpatient follow up. He would like to have close follow up with his doctors outpatient <ANNAMARIA Slater Last Filed: 11/16/24 18:03> Vital Signs Vital signs: Vital Signs Temperature 98.1 F 11/16/24 13:53 Pulse Rate 72 11/16/24 13:53 Respiratory Rate 20 11/16/24 13:53 Blood Pressure 151/84 H 11/16/24 13:53 Pulse Oximetry 98 11/16/24 13:53 Temperature 98.1 F 11/16/24 13:53 Pulse Rate 59 L 11/16/24 17:45 Respiratory Rate 18 11/16/24 17:45 Blood Pressure 160/93 H 11/16/24 17:45 Pulse Oximetry 100 11/16/24 17:45 Oxygen Delivery Room Air 11/16/24 17:47 <ANNAMARIA Grande Last Filed: 11/16/24 13:59> Vital Signs Temperature 98.1 F 11/16/24 13:53 Pulse Rate 72 11/16/24 13:53 Respiratory Rate 20 11/16/24 13:53 Blood Pressure 151/84 H 11/16/24 13:53 Pulse Oximetry 98 11/16/24 13:53 Temperature 98.1 F 11/16/24 13:53 Pulse Rate 59 L 11/16/24 17:45 Respiratory Rate 18 11/16/24 17:45 Blood Pressure 160/93 H 11/16/24 17:45 Pulse Oximetry 100 11/16/24 17:45 Oxygen Delivery Room Air 11/16/24 17:47 <ANNAMARIA Slater Last Filed: 11/16/24 18:03> MDM - SOB/Dyspnea MDM Narrative Medical decision making narrative: MSE by LEON in triage. <ANNAMARIA Grande Last Filed: 11/16/24 13:59> MSE by LEON in triage. Patient presents to the emergency department for shortness of breath, weight gain, recently diagnosed with DVT. Symptoms ongoing over the last week. He is afebrile and nontoxic appearing. His vitals are stable. Oxygen saturation normal on room air. Cbc without concerning findings. Metabolic panel with kidney function appears around baseline. EKG without acute ST changes, his baseline troponin negative. CTA chest PE without acute findings. patient updated on his workup. We spoke about further inpatient evaluation/management versus close outpatient follow up. He would like to have close follow up with his doctors outpatient. Given strict return precautions <ANNAMARIA Slater Last Filed: 11/16/24 18:03> Differential Diagnosis Differential diagnosis: Likely congestive heart failure, community acquired pneumonia and pulmonary embolism <ANNAMARIA Slater Last Filed: 11/16/24 18:03> Lab Data Attestation: I reviewed the patient's lab results. <ANNAMARIA Slater Last Filed: 11/16/24 18:03> Result diagrams: 11/16/24 14:16 11/16/24 14:16 <ANNAMARIA Grande Last Filed: 11/16/24 13:59> Labs: Lab Results 11/16/24 Range/Units 14:16 WBC 7.5 (4.5-10.0) K/mm3 RBC 4.71 (4.6-6.20) M/mm3 Hgb 15.4 (14.0-18.0) g/dL Hct 46.2 (42.0-52.0) % MCV 98.1 (80-100) fl MCH 32.7 (26-34) pg MCHC 33.3 (32-36) g/dl RDW 13.3 (11.5-14.5) % Plt Count 250 D (150-375) k/mm3 MPV 10.2 (7.4-10.4) fl Immature Gran % (Auto) 1.1 H (0-0.5) % Neut % (Auto) 75.2 H (45.5-73.1) % Lymph % (Auto) 15.8 L (18.3-44.2) % [place] % (Auto) 6.3 (2.6-8.5) % Eos % (Auto) 0.9 (0-4.4) % Baso % (Auto) 0.7 (0.2-1.2) % Lymph # (Auto) 1.18 (0.9-3.2) K/mm3 [place] # (Auto) 0.5 (0.1-0.6) K/mm3 Eos # (Auto) 0.1 (0-0.3) K/mm3 Baso # (Auto) 0.1 (0.0-0.1) K/mm3 Abs Immat Gran (auto) 0.08 H (0.00-0.031) K/mm3 Absolute Neuts (auto) 5.6 (1.3-6.7) K/mm3 Absolute Nucleated RBC 0.000 (0.0-0.012) K/mm3 Nucleated RBC % 0.0 (0.0-0.2) % PT 18.6 H (11.1-14.7) Seconds INR 1.6 APTT 30.1 (22.3-36.8) Seconds Sodium 138 (137-145) mmol/L Potassium 3.8 (3.4-5.0) mmol/L Chloride 104 (98-107) mmol/L Carbon Dioxide 25 (22-30) mmol/L Anion Gap 9 (4-12) mmol/L BUN 38 H D (9-20) mg/dL Creatinine 1.40 H (0.7-1.3) mg/dL Estim Creat Clear Calc 64 ml/min Estimated GFR 50 L (59 - ) Glucose 116 H (65-110) mg/dL Calcium 9.7 (8.4-10.2) mg/dL Total Bilirubin 1.3 (0.2-1.3) mg/dL AST 27 (17-59) U/L ALT 24 (6-50) U/L Alkaline Phosphatase 84 (38-126) U/L Troponin I < 0.012 (0.000-0.034) ng/mL NT-Pro-B Natriuret Pep 40 (19.9-100) pg/mL Total Protein 7.6 (6.3-8.2) g/dL Albumin 4.5 (3.5-5.1) g/dL <Stephanie Perdomo PA-C - Last Filed: 11/16/24 13:59> Lab Results 11/16/24 Range/Units 14:16 WBC 7.5 (4.5-10.0) K/mm3 RBC 4.71 (4.6-6.20) M/mm3 Hgb 15.4 (14.0-18.0) g/dL Hct 46.2 (42.0-52.0) % MCV 98.1 (80-100) fl MCH 32.7 (26-34) pg MCHC 33.3 (32-36) g/dl RDW 13.3 (11.5-14.5) % Plt Count 250 D (150-375) k/mm3 MPV 10.2 (7.4-10.4) fl Immature Gran % (Auto) 1.1 H (0-0.5) % Neut % (Auto) 75.2 H (45.5-73.1) % Lymph % (Auto) 15.8 L (18.3-44.2) % [place] % (Auto) 6.3 (2.6-8.5) % Eos % (Auto) 0.9 (0-4.4) % Baso % (Auto) 0.7 (0.2-1.2) % Lymph # (Auto) 1.18 (0.9-3.2) K/mm3 [place] # (Auto) 0.5 (0.1-0.6) K/mm3 Eos # (Auto) 0.1 (0-0.3) K/mm3 Baso # (Auto) 0.1 (0.0-0.1) K/mm3 Abs Immat Gran (auto) 0.08 H (0.00-0.031) K/mm3 Absolute Neuts (auto) 5.6 (1.3-6.7) K/mm3 Absolute Nucleated RBC 0.000 (0.0-0.012) K/mm3 Nucleated RBC % 0.0 (0.0-0.2) % PT 18.6 H (11.1-14.7) Seconds INR 1.6 APTT 30.1 (22.3-36.8) Seconds Sodium 138 (137-145) mmol/L Potassium 3.8 (3.4-5.0) mmol/L Chloride 104 (98-107) mmol/L Carbon Dioxide 25 (22-30) mmol/L Anion Gap 9 (4-12) mmol/L BUN 38 H D (9-20) mg/dL Creatinine 1.40 H (0.7-1.3) mg/dL Estim Creat Clear Calc 64 ml/min Estimated GFR 50 L (59 - ) Glucose 116 H (65-110) mg/dL Calcium 9.7 (8.4-10.2) mg/dL Total Bilirubin 1.3 (0.2-1.3) mg/dL AST 27 (17-59) U/L ALT 24 (6-50) U/L Alkaline Phosphatase 84 (38-126) U/L Troponin I < 0.012 (0.000-0.034) ng/mL NT-Pro-B Natriuret Pep 40 (19.9-100) pg/mL Total Protein 7.6 (6.3-8.2) g/dL Albumin 4.5 (3.5-5.1) g/dL <ANNAMARIA Slater Last Filed: 11/16/24 18:03> Imaging Data Radiologist's impression: ITS Impressions Chest CTA 11/16/24 14:39 IMPRESSION: 1. No PE or other acute cardiopulmonary findings. <ANNAMARIA Slater Filed: 11/16/24 18:03> ECG Data EKG #1: ECG completion date: 11/16/24 <ANNAMARIA Slater Last Filed: 11/16/24 18:03> EKG Interpretation: normal rate, sinus rhythm, no ST changes, RBBB and normal QT <ANNAMARIA Slater Last Filed: 11/16/24 18:03> Critical Care Time Critical Care Time Critical Care Time: No <ANNAMARIA Slater Last Filed: 11/16/24 18:03> Discharge Plan Discharge Clinical Impression: Shortness of breath <ANNAMARIA Grande Last Filed: 11/16/24 13:59> Patient Disposition: Home <ANNAMARIA Grande Last Filed: 11/16/24 13:59> Condition: Stable <ANNAMARIA Grande Last Filed: 11/16/24 13:59> Instructions: Shortness of Breath (ED) <ANNAMARIA Grande Last Filed: 11/16/24 13:59> Additional Instructions: Return to the emergency department if you experience fever, chest pain, worsening shortness of breath, or any other symptoms that are concerning to you. Continue your home medications as prescribed Follow up with your primary care doctor and library supervisor <ANNAMARIA Grande Last Filed: 11/16/24 13:59> Patient Language: Guamanian <ANNAMARIA Grande Last Filed: 11/16/24 13:59> Prescriptions: No Action Ozempic 2 mg/dose (8 mg/3 mL) pen injector 2 mg SUBCUT WEEKLY spironolactone 25 mg tablet 25 mg PO DAILY atorvastatin 40 mg tablet 40 mg PO QHS Entresto 97-103 mg tablet 1 tablet PO BID Jardiance 10 mg tablet 10 mg PO DAILY aspirin 81 mg tablet,delayed release (DR/EC) 81 mg PO DAILY sildenafil 100 mg tablet 100 mg PO DAILY PRN (Reason: sexual activity) Qty: 20 0RF Rx Instructions: administer 30 minutes to 4 hours before activity cholecalciferol (vitamin D3) 50 mcg (2,000 unit) tablet 50 mcg PO DAILY furosemide 40 mg tablet 80 mg PO DAILY modafinil 200 mg tablet PO hydrocodone-acetaminophen 5-325 mg tablet 1 tablet PO Q6H PRN (Reason: pain) Qty: 20 0RF calcium carbonate 600 mg calcium (1,500 mg) tablet 600 mg PO DAILY Qty: 90 1RF rivaroxaban 15 mg (42)- 20 mg (9) tablets,dose pack See Rx Instructions PO .COMPLEX Qty: 51 0RF Rx Instructions: take one-15 mg tablet twice daily for 21 days, then one-20 mg tablet once daily; must take with meal/food PO <Stephanie Perdomo PA-C - Last Filed: 11/16/24 13:59> Follow-up/Referrals: Travon Bolaños MD [Physician, Cardiology] Theresa Hicks DO [Primary Care Provider, Family Practice] <Stephanie Perdomo PA-C - Last Filed: 11/16/24 13:59>
[2024-11-16 14:33] LABS: Hematocrit 46.2 % (42.0-52.0); Hemoglobin 15.4 g/dL (14.0-18.0); Immature Granulocyte Percent A 1.1 % (0-0.5); Lymphocytes Absolute Auto 1.18 K/mm3 (0.9-3.2); Mean Corpuscular HGB Conc 33.3 g/dl (32-36); Mean Corpuscular Hemoglobin 32.7 pg (26-34); Mean Corpuscular Volume 98.1 fl (80-100); Nucleated Red Blood Cells Absolute Auto 0.000 K/mm3 (0.0-0.012); Nucleated Red Blood Cells Perc 0.0 % (0.0-0.2); Platelet Count Result 250 k/mm3 (150-375); Red Blood Count 4.71 M/mm3 (4.6-6.20); White Blood Count 7.5 K/mm3 (4.5-10.0)
[2024-11-16 14:44] LABS: INR 1.6; Prothrombin Time 18.6 Seconds (11.1-14.7)
[2024-11-16 14:45] LABS: Partial Thromboplastin Time 30.1 Seconds (22.3-36.8)
[2024-11-16 14:46] LABS: Alanine Aminotransferase 24 U/L (6-50); Albumin Level 4.5 g/dL (3.5-5.1); Alkaline Phosphatase 84 U/L (38-126); Anion Gap 9 mmol/L (4-12); Aspartate Amino Transferase 27 U/L (17-59); Bilirubin,Total 1.3 mg/dL (0.2-1.3); Blood Urea Nitrogen 38 mg/dL (9-20); Calcium 9.7 mg/dL (8.4-10.2); Carbon Dioxide 25 mmol/L (22-30); Chloride 104 mmol/L (98-107); Estimated CRCL calculation 64 ml/min; Estimated Glomerular Filt Rate 50; Glucose 116 mg/dL (65-110); Potassium 3.8 mmol/L (3.4-5.0); Sodium 138 mmol/L (137-145); Total Protein 7.6 g/dL (6.3-8.2)
[2024-11-16 14:57] LABS: NT Pro B Type Natriuretic Pept 40 pg/mL (19.9-100); Troponin I < 0.012 ng/mL (0.000-0.034)
--- OUTSIDE RECORDS SUMMARY | 2024-11-16 17:23 | XMS_ITS | Clinical Summary ---
Author Organization [facility] [address] Address [address] [place] [address] Care Team Providers Care Injection Wax Molder Name Role Phone Theresa Hicks Primary Care Provider [phone] Cecelia Conley MD Unavailable [phone] Travon Bolaños MD Unavailable Allergies Active [...] (09/01/2020): Added automatically from request for surgery [id number] CUMMINS (dyspnea on exertion) Encounters Date Type Department Care Team Description 11/11/[address] [facility] [address] [facility] [address] [place] [address] Travon Bolaños MD 11/06/2024 9:30 AM CDT Office Visit [facility] [address] [place] [address] [address] [place] [address] Pinky Dunlap MD [place] on CPAP (Primary Dx); Hypersomnia; Severe obesity (BMI 35.0-35.9 with comorbidity) ([facility]) 08/19/2024 Telephone [facility] [address] [place] [address] [address] [place] [address] Dominique Landis MA from Last 3 Months Surgical History Surgery Date Site/Laterality Comments CHOLECYSTECTOMY HERNIA REPAIR Medical History Medical History Date Comments Hypertension Hyperlipidemia Covid-19 11/2019 Hiatal hernia GERD (gastroesophageal reflux disease) Sleep apnea uses C pap CHF (congestive heart failure) ([facility]) CKD (chronic kidney disease) stage 3, GFR [...] on file 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 Gender Identity Not on file Sexual Orientation Not on file Obstetrics History Last Filed Vital Signs Vital Sign Reading Time Taken Comments Blood Pressure 132/78 11/06/2024 9:29 AM CDT Pulse 64 11/06/2024 9:29 AM CDT Temperature 36.6 C (97.9 F) 02/12/2022 9:13 AM BUSINESS INFORMATION CONSULTANT Respiratory Rate 14 04/23/2023 9:15 AM BUSINESS INFORMATION CONSULTANT Oxygen Saturation 96% 11/06/2024 9:29 AM CDT [...] 2024 05/20/2020, 04/29/2020 Influenza Vaccine (#1) 2024 , 12/23/2019, 11/30/2019, Additional history exists DTaP/Tdap/Td Vaccine (2 - Td or Tdap) 12/24/2024 12/24/2014 Insurance MEDICARE MEDICARE [facility] MEDICARE SUPPLEMENT INSURANCE MEDICARE [facility] MEDICARE SUPPLEMENT Advance Directives For more information, please contact: [phone] * Full Code (Latest Code Status on File) Date Activated Date Inactivated Comments 10/26/2020 2:44 PM 10/28/2020 9:02 PM * Full Code Date Activated Date Inactivated Comments 09/14/2020 11:49 PM 09/17/2020 8:46 PM Care Teams Injection Wax Molder Relationship Specialty Start Date End Date Theresa Hicks DO PCP - General Family Medicine 02/11/20 Cecelia Conley MD Surgeon Cardiothoracic Surgery 10/28/20 Travon Bolaños MD [address] [facility] [address] [place] [address] Consulting Physician Cardiology 11/26/23
--- OUTSIDE RECORDS SUMMARY | 2024-11-16 17:23 | XMS_ITS | Clinical Summary ---
Author Organization [facility] Address [address] [place] [address] Phone Care Team Providers Care Legislative Advocate Name Role Phone Theresa Hicks MD Primary Care Provider [phone] Allergies Active Allergy Reactions Criticality Noted Date [...] 01/24/2004 Influenza Vaccine (#1) 2024 Insurance MEDICARE [facility] Care Teams Legislative Advocate Relationship Specialty Start Date End Date Theresa Hicks MD [address] [place] [address] PCP - General Family Medicine 07/01/20
--- OUTSIDE RECORDS SUMMARY | 2024-11-16 17:23 | XMS_ITS | Encounter Summary ---
Author Organization [facility] Healthcare Address [address] [place] [address] Care Team Providers Care Law Office Manager Name Role Phone LeightondemarcusTheresa [email or web address] Primary Care Provider [phone] Cecelia Conley MD Unavailable [phone] Travon Bolaños MD Unavailable Encounter Details Date Type Department Care Team (Late st Contact Info) Description 09/15/2022 Orders Only [facility] Information Management [address] [place] [id number] Scanning, Provider Social History Tobacco Use Types Packs/Day Years Used Date Smoking Tobacco: Never Smokeless Tobacco: Never Alcohol Use Standard Drinks/Week Comments Never 0 (1 standard drink = 0.6 oz pur e alcohol) AUDIT-C Answer Date Recorded Q1: How often do you have a drink containing alc ohol? Never 09/13/2020 Average Number of Drinks Not on file 021 Frequency of Binge Drinking Not on file 08/26 Overall Financial Resource Strain (CARDIA) Answe r [...] things needed for daily living? 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 Gender Identity Not on file Sexual Orientation Not on file documented as of this encounter Plan of Treatment Not on file documented as of this encounter Procedures Procedure Name Priority Date/Time Associated Diagnosis Comments SCAN - LABS 09/15/2022 documented in this encounter Results * SCAN - LABS (09/15/2022) us Provider Scanning Final Result documented in this encounter Visit Diagnoses Not on filedocumented in this encounter Care Teams Law Office Manager Relationship Specialty Start Date End Date Theresa Hicks DO PCP - General Family Medicine 02/11/20 Cecelia Conley MD Surgeon Cardiothoracic Surgery 10/28/20 Travon Bolaños MD [address] [facility] [address] [place] [address] Consulting Physician Cardiology 11/26/23 documented as of this encounter
--- OUTSIDE RECORDS SUMMARY | 2024-11-16 17:23 | XMS_ITS | Clinical Summary ---
Author Organization [facility] Address [address] [place] [address] Care Team Providers Care Scrap Hoist Operator Name Role Phone Abdiaziz Wisdom MD Primary Care Provider [phone] Source Comments [facility],non-owned Affiliates and Associated Physician Practices is amultiple site organization consisting of ambulatory clinics and hospital sitesin [place], [place], [place] and [place]. This disclosure is being madepursuant to the Care Everywhere program and may not contain all information available regarding this patient. 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
== END 2024-11-16 18:11 | disposition home or self-care (01) ==
PROVIDERS: Physician Assistant; Emergency Provider Physician Assistant; PCP Family Medicine
DX: R06.02 Shortness of breath (principal); I45.10 Unspecified right bundle-branch block; I13.0 Hypertensive heart and chronic kidney disease with heart failure and stage 1 through stage 4 chronic kidney disease, or unspecified chronic kidney disease; N18.30 Chronic kidney disease, stage 3 unspecified; I50.9 Heart failure, unspecified; E78.5 Hyperlipidemia, unspecified
CPT/HCPCS: 36415; 71275; 80053; 83880; 84484; 85025; 85610; 85730; 93005; 99284; Q9967

== ENCOUNTER 2024-12-13 15:16 | Inpatient (IN) | payer MEDICARE, SELFPAY ==
[2024-12-13] VITALS (10 sets, daily range): BP systolic 122–146; BP diastolic 58–82; PULSE 66–78; RESP 14–20; TEMP 36.2–36.7; O2SAT 93–98; BMI 38.0
--- NOTE | ~2024-12-13 | US_ITS ---
EXAMINATION: US venous doppler LE RT, 12/13/2024 17:06 CDT HISTORY: rle swelling/pain Comparison: None Technique: Malone-scale and color Doppler images were attempted of the lower saphenofemoral junction, common femoral vein,superficial femoral vein, proximal deep femoral vein, proximal deep femoral vein, popliteal vein and posterior tibial veins. Findings: Deep Venous System:There is thrombus with diminished flow in the right femoral and popliteal veins. Superficial Venous SystemNo superficial thrombophlebitis. Soft tissues: Soft tissues are unremarkable. Impression: DVT detailed above Reviewed, dictated and finalized at location P. Impression: DVT detailed above
--- NOTE | ~2024-12-13 | CT_ITS ---
EXAMINATION: CT abdomen pelvis w con DATE: 12/15/2024 11:56 INDICATION: Hypercoagulable state TECHNIQUE: Computed tomography (CT) of the abdomen and pelvis was performed with 100 mL Omnipaque-350 intravenous contrast. Automated exposure control and iterative reconstruction technique were employed. The dose-length product was 1600.30 mGy-cm. COMPARISON: 11/17/2021 FINDINGS: Elevation the left hemidiaphragm with compressive and bandlike discoid atelectasis at the basilar left lower lobe. Calcified left lower lobe nodule consistent with old granulomatous disease. Visualized inferior heart is normal. No pericardial or pleural effusion. Postoperative change of prior Martin fu ndoplication at the thoracic hiatus. Focal hepatic steatosis at the ligamentum teres. A couple unchanged subcentimeter low-attenuation hepatic cyst. Cholecystectomy clips the gallbladder fossa. Spleen, pancreas, bilateral adrenal glands and right kidney are normal. Several left renal cysts the largest at the lower pole measuring 4.8 cm. There are 3 diverticula along the posterior bladder, two on the right and one on the left. Postoperative changes along the anterior abdominal wall with change of prior umbilical/central ventral hernia mesh repair. There is an additional fat-containing supraumbilical ventral hernia which measures 6.3 x 5.0 x 3.3 cm extending through a 1.5 cm orifice. There is a single small loop of mildly dilated small bowel in the left upper quadrant measuring up to 4.3 cm maximal diameter with transition point along the anterolateral left abdominal wall which could be transient versus related to partial or early small bowel obstruction. The appendix is not visualized. No pericecal inflammatory change to suggest acute appendicitis. Chronic fatty infiltration of the wall of the rectum and distal sigmoid colon which could be related to body habitus or sequela of chronic inflammation. No pathologically enlarged abdominal or pelvic lymphadenopathy. Fat and small amount of ascites in and moderate-sized right inguinal hernia. No other free intraperineal gas or fluid. Mild thoracolumbar levocurvature with mild lumbar and mild to moderate lower thoracic spondylosis. Chronic minimal to mild likely physiologic anterior wedging at T10-T12. IMPRESSION: 1. Single small loop of mildly dilated small bowel in the left upper quadrant with transition point along the lateral abdominal wall which could be transient or related to early or partial small bowel obstruction. 2. No lesion suspicious for malignancy or metastatic disease. 3. Chronic elevation the left hemidiaphragm with left basilar atelectasis. 4. Postoperative change of prior Martin fundoplication and umbilical/central ventral hernia mesh repair. Residual small fat-containing supraumbilical ventral hernia. 5. Small amount of fat and minimal ascites and a moderate-sized right inguinal hernia. Reviewed, dictated and finalized at location A. IMPRESSION: 1. Single small loop of mildly dilated small bowel in the left upper quadrant w ith transition point along the lateral abdominal wall which could be transient or related to early or partial small bowel obstruction. 2. No lesion suspicious for malignancy or metastatic disease. 3. Chronic elevation the left hemidiaphragm with left basilar atelectasis. 4. Postoperative change of prior Martin fundoplication and umbilical/central ve ntral hernia mesh repair. Residual small fat-containing supraumbilical ventral hernia. 5. Small amount of fat and minimal ascites and a moderate-sized right inguinal hernia.
--- NOTE | ~2024-12-13 | CT_ITS ---
EXAMINATION: CTA chest PE protocol DATE: 12/13/2024 22:09 INDICATION: Shortness of breath. Cough. TECHNIQUE: Computed tomography angiography (CTA) of the chest was performed with 100 mL Omnipaque-350 intravenous contrast timed to evaluate the pulmonary arteries. Coronal maximum intensity projection 3D-reconstructions were created by the technologist. Automated exposure control and iterative reconstruction technique were employed. The dose-length product was 970.43 mGy-cm. COMPARISON: Chest CT 11/16/2024, 07/08/2020 FINDINGS: The lungs demonstrate mild atelectasis. Calcified left lung nodules and calcified left hilar lymph nodes are consistent with old granulomatous disease. No pleural effusion. Cardiomegaly is noted. There are coronary artery calcifications. No pericardial effusion. There is bilateral gynecomastia. There is no pulmonary embolus. There are likely changes of fundoplication of the stomach. There are changes of cholecystectomy. There is a 4.0 cm cyst in left kidney. There is mild thoracic spondylosis. There is mild chronic anterior wedging of multiple vertebral bodies. There is a chronic sclerotic lesion in right fourth rib, likely a benign bone island. IMPRESSION: 1. No pulmonary embolus. Reviewed, dictated and finalized at location E. IMPRESSION: 1. No pulmonary embolus.
--- NOTE | 2024-12-13 15:35 | ED.GENADULT ---
HPI - General Adult General Chief complaint: Skin/Abscess/Foreign Body Stated complaint: RLE pain Time Seen by Provider: 12/13/24 15:30 Source: patient and family Mode of arrival: ambulatory Limitations: no limitations History of Present Illness HPI narrative: This is a 69-year-old male with history of CHF hypertension, hyperlipidemia, CKD, but recent DVT to right lower extremity who presents to the ED for right lower extremity swelling and redness. Patient states that for the past 4-5 days, he has had worsening swelling to his right lower extremity. He has been taking his Xarelto as prescribed. Denies fevers, chills chest pain. He has had some intermittent dyspnea on exertion that is similar to his baseline due to his CHF. He reports that he has been admitted in the past for IV antibiotics for cellulitis to his lower extremities but feels similar to this. Related Data Home Medications ?Medication ?Instructions ?Recorded ?Confirmed ?Last Taken ?Type spironolactone 25 mg tablet 25 mg PO DAILY 06/20/20 11/20/24 01/23/22 07:34 History atorvastatin 40 mg tablet 40 mg PO QHS 04/27/22 11/20/24 Unknown History sacubitril 97 mg-valsartan 103 mg 1 tablet PO BID 09/21/22 11/20/24 Unknown History tablet (Entresto) empagliflozin 10 mg tablet 10 mg PO DAILY 07/11/23 11/20/24 Unknown History (Jardiance) cholecalciferol (vitamin D3) 50 50 mcg PO DAILY 11/15/23 11/20/24 Unknown History mcg (2,000 unit) tablet furosemide 40 mg tablet 80 mg PO DAILY 03/06/24 11/20/24 Unknown History semaglutide 2 mg/dose (8 mg/3 mL) 2 mg subcut WEEKLY 05/02/24 11/20/24 Unknown History subcutaneous pen injector (Ozempic) Allergies Allergy/AdvReac Type Severity Reaction Status Date / Time lisinopril AdvReac Unknown cough Verified 12/13/24 19:28 Review of Systems Review of Systems: Gen.: Denies fevers or chills Eyes: Denies eye pain or visual change ENT: Denies congestion Respiratory: Denies shortness of breath or cough CV: Denies chest pain or palpitations GI: Denies abdominal pain nausea, emesis or diarrhea denies burning, urgency, frequency or hematuria Musculoskeletal: Denies back pain or muscle pain Neuro: Denies numbness, tingling, weakness or focal weakness Skin: As per HPI Except as documented, all other systems reviewed and negative [facility] Past Medical History Medical History Hepatitis C antibody test negative (01/08/17) Diastolic congestive heart failure History of cardiac disorder Positive colorectal cancer screening using Cologuard test Arthritis History of blood clots LLE DVT 2010 High cholesterol HTN (hypertension) Chronic kidney disease, stage 3 (moderate) Hypertensive chronic kidney disease with stage 1 through stage 4 chronic kidney disease, or unspecified chronic kidney disease Surgical History Surgical History Hx of cholecystectomy (~1999) History of hernia repair Family History Family History Father Hypertension Family history of elevated blood lipids Family history of cardiovascular disease, Onset Age: 86 Mother Hypertension Family history of kidney disease Familial primary pulmonary hypertension Grandparent Diabetes mellitus Social History Social History Smoking status: Never smoker Second hand tobacco smoke exposure: No Alcohol intake: never Substance use: never Lack of Transportation: No Lack of Food: Never True Current Housing: I Have Housing Concerned About Future Housing: No Difficulty Paying Gas/Electric Bills: No Difficulty Paying for Meds: No Currently Unemployed: No Education: Associate Degree Difficulty w/ Childcare or Family Care: No Living arrangements: with family Gender identity (if verbalized by the patient): Male Sexual Orientation (if Verbalized by the Patient): Straight or Heterosexual Spiritual care concerns: No Exam Narrative: APPEARANCE: No acute distress, nontoxic, resting in bed EYES: EOMI HEENT: Normocephalic, atraumatic, OMM RESPIRATORY: No respiratory distress Clear to auscultation bilaterally with no rhonchi wheezing or rales. CARDIOVASCULAR: Regular rate and rhythm without murmurs rubs or gallops. ABDOMINAL: Soft, nontender, nondistended, no rebound or guarding MUSCULOSKELETAl: Moves all extremities. 2+ pitting edema to the bilateral lower extremities up to the level of the knees NEURO: Awake and alert. Following commands, speech normal, no focal deficits SKIN:: Erythema to the right lower extremity from the toes up to the knee with warmth to touch PSYCHIATRIC: Normal affect/mood, Course Vital Signs Vital signs: Vital Signs Temperature 97.8 F 12/13/24 15:20 Pulse Rate 76 12/13/24 15:20 Respiratory Rate 16 12/13/24 15:20 Blood Pressure 122/66 12/13/24 15:20 Pulse Oximetry 96 12/13/24 15:20 Oxygen Delivery Room Air 12/13/24 15:20 Temperature 98.1 F 12/13/24 15:36 Pulse Rate 69 12/13/24 19:30 Respiratory Rate 20 12/13/24 19:30 Blood Pressure 129/68 12/13/24 19:30 Pulse Oximetry 95 12/13/24 19:30 Oxygen Delivery Room Air 12/13/24 15:20 Medical Decision Making MDM Narrative Medical decision making narrative: 69-year-old male presenting for worsening swelling and pain to the right leg. On initial evaluation, patient was in acute distress afebrile, hemodynamically stable. He did have warmth and erythema to the right lower leg to the level of the knee. Heart lungs otherwise clear. Right lower extremity venous Doppler was obtained and did show DVT that appears to have extended to the femoral vein and the popliteal vein. This does suggest failure of Xarelto treatment. Patient does reiterate that he has been taking his Xarelto as prescribed. I did discuss the case with Dr. Rodriguez, hematology, does recommend starting the patient on heparin and will see the patient as a consult. Discussed case with hospitalist who will admit the patient. Differential Diagnosis Differential Diagnosis: DVT, cellulitis, CHF Medical Records Medical records reviewed: Yes I reviewed the external patient's medical records. Medical records narrative: Ultrasound from 11/06/2024 revealed a DVT in the superficial found on the right Vital Signs Vital Signs: Vital Signs Temperature 97.8 F 12/13/24 15:20 Pulse Rate 76 12/13/24 15:20 Respiratory Rate 16 12/13/24 15:20 Blood Pressure 122/66 12/13/24 15:20 Pulse Oximetry 96 12/13/24 15:20 Oxygen Delivery Room Air 12/13/24 15:20 Temperature 98.1 F 12/13/24 15:36 Pulse Rate 69 12/13/24 19:30 Respiratory Rate 20 12/13/24 19:30 Blood Pressure 129/68 12/13/24 19:30 Pulse Oximetry 95 12/13/24 19:30 Oxygen Delivery Room Air 12/13/24 15:20 Lab Data Lab results reviewed: Yes I reviewed the patient's lab results. 12/13/24 18:31 12/13/24 18:31 Imaging Data Attestation: I personally reviewed and interpreted this imaging study as follows: Radiologist's impression: Impressions Venous Doppler Study 12/13/24 17:31 Impression: DVT detailed above Discharge Plan Discharge Clinical Impression: DVT (deep venous thrombosis) Qualifiers: DVT location: lower extremity Affected thrombotic vein of extremity: femoral Chronicity: acute Laterality: right Qualified Code(s): I82.411 - Acute embolism and thrombosis of right femoral vein Patient Disposition: Still a Patient Condition: Stable
--- OUTSIDE RECORDS SUMMARY | 2024-12-13 16:04 | XMS_ITS | Clinical Summary ---
Author Organization [facility] Address [address] [place] [id number] Phone Care Team Providers Care Commercial Credit Reviewer Name Role Phone Theresa Hicks MD Primary Care Provider [phone] Allergies Active Allergy Reactions Criticality Noted Date [...] 01/24/2004 Influenza Vaccine (#1) 2024 Insurance MEDICARE [facility] Care Teams Commercial Credit Reviewer Relationship Specialty Start Date End Date Theresa Hicks MD [address] [place] [address] PCP - General Family Medicine 07/01/20
--- OUTSIDE RECORDS SUMMARY | 2024-12-13 16:04 | XMS_ITS | Clinical Summary ---
Author Organization [facility] Address [address] [place] [address] Care Team Providers Care Apparel Manufacture Instructor Name Role Phone Abdiaziz Wisdom MD Primary Care Provider [phone] Source Comments [facility],non-owned Affiliates and Associated Physician Practices is amultiple site organization consisting of ambulatory clinics and hospital sitesin [place], [place], [place] and [place]. This disclosure is being madepursuant to the Care Everywhere program and may not contain all information available regarding this patient. 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
[2024-12-13] MEDS: oxyCODONE HCL (*CRX) 5 MG TAB IR PO (18:23)
[2024-12-13 18:36] LABS: Hematocrit 44.5 % (42.0-52.0); Hemoglobin 15.2 g/dL (14.0-18.0); Immature Granulocyte Percent A 0.9 % (0-0.5); Lymphocytes Absolute Auto 1.25 K/mm3 (0.9-3.2); Mean Corpuscular HGB Conc 34.2 g/dl (32-36); Mean Corpuscular Hemoglobin 33.0 pg (26-34); Mean Corpuscular Volume 96.7 fl (80-100); Nucleated Red Blood Cells Absolute Auto 0.000 K/mm3 (0.0-0.012); Nucleated Red Blood Cells Perc 0.0 % (0.0-0.2); Platelet Count Result 221 k/mm3 (150-375); Red Blood Count 4.60 M/mm3 (4.6-6.20); White Blood Count 7.4 K/mm3 (4.5-10.0)
[2024-12-13 19:00] LABS: Alanine Aminotransferase 26 U/L (6-50); Albumin Level 4.3 g/dL (3.5-5.1); Alkaline Phosphatase 79 U/L (38-126); Anion Gap 9 mmol/L (4-12); Aspartate Amino Transferase 28 U/L (17-59); Bilirubin,Total 1.7 mg/dL (0.2-1.3); Blood Urea Nitrogen 34 mg/dL (9-20); Calcium 9.8 mg/dL (8.4-10.2); Carbon Dioxide 24 mmol/L (22-30); Chloride 106 mmol/L (98-107); Estimated CRCL calculation 59 ml/min; Estimated Glomerular Filt Rate 45; Glucose 104 mg/dL (65-110); Potassium 4.2 mmol/L (3.4-5.0); Sodium 139 mmol/L (137-145); Total Protein 7.2 g/dL (6.3-8.2)
[2024-12-13 19:05] LABS: INR 1.8; Prothrombin Time 20.5 Seconds (11.1-14.7)
[2024-12-13 19:06] LABS: Partial Thromboplastin Time 32.0 Seconds (22.3-36.8)
[2024-12-13] MEDS: HEPARIN SOD/D5W 100 UNITS/ML 25,000 UNITS/250 ML BAG 15 UNITS IV CONT (19:29)
--- NOTE | 2024-12-13 21:56 | PM.IMHP ---
H&P: HPI History of Present Illness Date/Time: 12/13/24 21:56 Chief Complaint: Right leg swelling Narrative: A pleasant 69-year-old male accompanied by his present to [facility] ER on 12/13/2024 complaining of worsening pain and swelling of his right lower extremity distal to the knee. He was originally diagnosed with a DVT on 11/06/2024 via venous Doppler demonstrating right superficial femoral vein DVT, he was started on Xarelto and has been taking that. Patient notes he had a DVT years ago in the left lower extremity as well, he was on Coumadin and then taken off. He has not had any long road trips greater than 3 hours, no surgeries immobilizations or blood trauma. He has had cellulitis in the right lower extremity before. Since he has been on Xarelto he has developed a bit more shortness of breath more than his usual for CHF, a dry cough, no hemoptysis, worsening swelling of his right lower extremity with pain and redness. No open sores, no purulence, no numbness. In the ER a repeat venous Doppler of the right lower extremity now demonstrate a DVT in the right femoral and popliteal veins. His leg is not overly hot to touch, it is tender to palpation with 2+ pitting edema and erythema from his foot to above his knee. Of note, chest CTA performed on 11/16/2024 did not demonstrate PE. Hematology was consulted, patient started on heparin GTT. He has a history of CKD stage 3, hypertension, hypercholesterolemia, arthritis, diastolic congestive heart failure. Review of Systems Review of Systems: All systems reviewed & are unremarkable except as noted in HPI and below (Subjective) [facility]LY [facility] Past Medical History Medical History Hepatitis C antibody test negative (01/08/17) Diastolic congestive heart failure History of cardiac disorder Positive colorectal cancer screening using Cologuard test Arthritis History of blood clots LLE DVT 2009 High cholesterol HTN (hypertension) Chronic kidney disease, stage 3 (moderate) Hypertensive chronic kidney disease with stage 1 through stage 4 chronic kidney disease, or unspecified chronic kidney disease Surgical History Surgical History Hx of cholecystectomy (~1999) History of hernia repair Family History Family History Father Hypertension Family history of elevated blood lipids Family history of cardiovascular disease, Onset Age: 86 Mother Hypertension Family history of kidney disease Familial primary pulmonary hypertension Grandparent Diabetes mellitus Social History Social History Smoking status: Never smoker Second hand tobacco smoke exposure: No Alcohol intake: never Substance use: never Lack of Transportation: No Lack of Food: Never True Current Housing: I Have Housing Concerned About Future Housing: No Difficulty Paying Gas/Electric Bills: No Difficulty Paying for Meds: No Currently Unemployed: No Education: Associate Degree Difficulty w/ Childcare or Family Care: No Living arrangements: with family Gender identity (if verbalized by the patient): Male Sexual Orientation (if Verbalized by the Patient): Straight or Heterosexual Spiritual care concerns: No Meds Home Medications and Allergies Home Medications ?Medication ?Instructions ?Recorded ?Confirmed ?Type spironolactone 25 mg tablet 25 mg PO DAILY 06/20/20 11/20/24 History sildenafil 100 mg tablet 100 mg PO DAILY PRN sexual 12/29/21 11/20/24 Rx activity #20 tabs calcium carbonate 600 mg PO DAILY #90 tabs 03/12/22 11/20/24 Rx atorvastatin 40 mg tablet 40 mg PO QHS 04/27/22 11/20/24 History sacubitril 97 mg-valsartan 103 mg 1 tablet PO BID 09/21/22 11/20/24 History tablet (Entresto) empagliflozin 10 mg tablet 10 mg PO DAILY 07/11/23 11/20/24 History (Jardiance) cholecalciferol (vitamin D3) 50 50 mcg PO DAILY 11/15/23 11/20/24 History mcg (2,000 unit) tablet furosemide 40 mg tablet 80 mg PO DAILY 03/06/24 11/20/24 History semaglutide 2 mg/dose (8 mg/3 mL) 2 mg subcut WEEKLY 05/02/24 11/20/24 History subcutaneous pen injector (Ozempic) hydrocodone 5 mg-acetaminophen 325 1 tablet PO Q6H PRN pain #20 tabs 11/05/24 11/20/24 Rx mg tablet rivaroxaban 20 mg tablet 20 mg PO DAILY #90 tabs 11/30/24 Rx Allergies Allergy/AdvReac Type Severity Reaction Status Date / Time lisinopril AdvReac Unknown cough Verified 12/13/24 19:28 Vital Signs Vital Signs - 24 hr 12/13/24 15:20 12/13/24 15:36 12/13/24 19:28 Temperature 97.8 F 98.1 F Pulse Rate 76 73 68 Respiratory Rate 16 14 20 Blood Pressure 122/66 146/58 H 133/74 Pulse Oximetry 96 98 97 Oxygen Delivery Room Air 12/13/24 19:30 12/13/24 19:31 12/13/24 20:01 Temperature Pulse Rate 69 67 69 Respiratory Rate 20 20 18 Blood Pressure 129/68 129/68 131/69 Pulse Oximetry 95 95 95 Oxygen Delivery 12/13/24 20:31 12/13/24 21:01 Temperature Pulse Rate 70 68 Respiratory Rate 16 20 Blood Pressure 145/82 H 130/62 Pulse Oximetry 95 93 Oxygen Delivery Exam Const: General: comfortable and no acute distress Other: A&O x3 HENMT: Mouth: Yes moist mucous membranes Eyes: Pupils: Equal, round and reactive pupils present Neck: Neck: supple Resp: Effort & Inspection: normal respiratory effort Auscultation: clear to auscultation bilaterally Cardio: Rate: regular rate Rhythm: regular rhythm GI: Inspection: non-distended GI Palp: Yes Soft to palpation Auscultation: normal bowel sounds : General: Yes bladder normal to palpation Neuro: Motor exam (neuro): 5/5 motor strength present throughout Extrem: Other: 2-3 +pitting edema of right lower extremity just above the knee down to the foot, erythema but no warmth to touch, tender to palpation. Pedal pulses intact H&P: Results Labs Labs: Short CBC 12/13/24 Range/Units 18:31 WBC 7.4 (4.5-10.0) K/mm3 Hgb 15.2 (14.0-18.0) g/dL Hct 44.5 (42.0-52.0) % Plt Count 221 (150-375) k/mm3 BMP 12/13/24 18:31 Sodium 139 Potassium 4.2 Chloride 106 Carbon Dioxide 24 BUN 34 H Creatinine 1.53 H Glucose 104 Calcium 9.8 Liver Function 12/13/24 Range/Units 18:31 Total Bilirubin 1.7 H (0.2-1.3) mg/dL AST 28 (17-59) U/L ALT 26 (6-50) U/L Alkaline Phosphatase 79 (38-126) U/L Albumin 4.3 (3.5-5.1) g/dL Assessment and Plan Assessment and plan (1) Deep vein blood clot of right lower extremity: Qualifiers: Affected thrombotic vein of extremity: femoral Chronicity: unspecified Qualified Code(s): I82.411 - Acute embolism and thrombosis of right femoral vein Code(s): I82.401 - Acute embolism and thrombosis of unspecified deep veins of right lower extremity Status: Acute (2) Cough: Code(s): R05.9 - Cough, unspecified Status: Acute Plan A pleasant 69-year-old male accompanied by his present to [facility] ER on 12/13/2024 complaining of worsening pain and swelling of his right lower extremity distal to the knee. He was originally diagnosed with a DVT on 11/06/2024 via venous Doppler demonstrating right superficial femoral vein DVT, he was started on Xarelto and has been taking that. Patient notes he had a DVT years ago in the left lower extremity as well, he was on Coumadin and then taken off. He has not had any long road trips greater than 3 hours, no surgeries immobilizations or blood trauma. He has had cellulitis in the right lower extremity before. Since he has been on Xarelto he has developed a bit more shortness of breath more than his usual for CHF, a dry cough, no hemoptysis, worsening swelling of his right lower extremity with pain and redness. No open sores, no purulence, no numbness. In the ER a repeat venous Doppler of the right lower extremity now demonstrate a DVT in the right femoral and popliteal veins. His leg is not overly hot to touch, it is tender to palpation with 2+ pitting edema and erythema from his foot to above his knee. Of note, chest CTA performed on 11/16/2024 did not demonstrate PE. Hematology was consulted, patient started on heparin GTT. He has a history of CKD stage 3, hypertension, hypercholesterolemia, arthritis, diastolic congestive heart failure. ----- Continue heparin GTT, Hematology consultation. Neurovascular exam is intact. Venous ultrasound does not demonstrate soft tissue gas or irregularities. Do not suspect cellulitis at this time. CTA chest for increasing cough and shortness of breath which is new compared to his usual for CHF. Possible PE. CHF, diastolic: Compensated. Medication reconciliation is pending, all home meds will be restarted as indicated and appropriate. ----- Patient wishes to be full code. Saline lock IV. Diabetic diet. Accu-Cheks a.c. HS with hypoglycemia protocol and low-dose insulin sliding scale. Hospitalist MIPS Advance Care Plan I have confirmed that the patient's Advanced Care Plan is present, code status is documented, or surrogate decision maker is listed in patient medical record.: Yes Medication Reconciliation I have utilized all available resources to obtain, update and review the patients current medications (includes all prescriptions, OTC, herbals, cannabis, and nutritional supplements).: Yes
[2024-12-14 02:15] LABS: Hematocrit 41.0 % (42.0-52.0); Hemoglobin 13.8 g/dL (14.0-18.0); Immature Granulocyte Percent A 1.2 % (0-0.5); Lymphocytes Absolute Auto 1.23 K/mm3 (0.9-3.2); Mean Corpuscular HGB Conc 33.7 g/dl (32-36); Mean Corpuscular Hemoglobin 33.2 pg (26-34); Mean Corpuscular Volume 98.6 fl (80-100); Nucleated Red Blood Cells Absolute Auto 0.000 K/mm3 (0.0-0.012); Nucleated Red Blood Cells Perc 0.0 % (0.0-0.2); Platelet Count Result 176 k/mm3 (150-375); Red Blood Count 4.16 M/mm3 (4.6-6.20); White Blood Count 6.0 K/mm3 (4.5-10.0)
[2024-12-14 02:26] LABS: Alanine Aminotransferase 23 U/L (6-50); Albumin Level 3.6 g/dL (3.5-5.1); Alkaline Phosphatase 67 U/L (38-126); Anion Gap 6 mmol/L (4-12); Aspartate Amino Transferase 23 U/L (17-59); Bilirubin,Total 1.4 mg/dL (0.2-1.3); Blood Urea Nitrogen 35 mg/dL (9-20); Calcium 9.2 mg/dL (8.4-10.2); Carbon Dioxide 22 mmol/L (22-30); Chloride 108 mmol/L (98-107); Estimated CRCL calculation 67 ml/min; Estimated Glomerular Filt Rate 52; Glucose 110 mg/dL (65-110); Magnesium 2.3 mg/dL (1.6-2.3); Potassium 4.0 mmol/L (3.4-5.0); Sodium 136 mmol/L (137-145); Total Protein 6.0 g/dL (6.3-8.2)
[2024-12-14 02:48] LABS: Partial Thromboplastin Time 83.6 Seconds (22.3-36.8)
[2024-12-14 05:00] VITALS: BP 130/75; PULSE 54; RESP 18; TEMP 36.1; O2SAT 98
[2024-12-14] MEDS: ACETAMINOPHEN 325 MG TABLET 650 MG PO ×3 (05:12→21:10)
[2024-12-14 08:00] VITALS: BP 131/66; PULSE 57; RESP 18; TEMP 36; O2SAT 96
--- NOTE | 2024-12-14 08:44 | PM.IMPN ---
Progress Note: A&P Assessment and Plan (1) Deep vein blood clot of right lower extremity: Qualifiers: Affected thrombotic vein of extremity: femoral Chronicity: unspecified Qualified Code(s): I82.411 - Acute embolism and thrombosis of right femoral vein Code(s): I82.401 - Acute embolism and thrombosis of unspecified deep veins of right lower extremity Status: Acute Assessment and Plan: Originally diagnosed with a DVT on 11/06/2024 via venous Doppler demonstrating right superficial femoral vein DVT, he was started on Xarelto and has not missed a dose. Patient notes he had a DVT years ago in the left lower extremity as well, he was on Coumadin and then taken off after completing the course. He has not had any long road trips greater than 3 hours, no surgeries immobilizations or blood trauma. Continue heparin drip per protocol Chest CTA negative for PE Venous doppler: right femoral and popliteal dvt Neurovascular exam is intact. Venous ultrasound does not demonstrate soft tissue gas or irregularities. Do not suspect cellulitis Monitor vital signs, I&Os, shortness of breath and chest pain. Monitor serum electrolytes, PTT, CBC Monitor for bloody bowel movements,chest pain,SOB or dizziness/lightheadedness Heme/onc consulted (2) HTN (hypertension): Code(s): I10 - Essential (primary) hypertension Status: Acute Assessment and Plan: chronic, continue home medications - lasix 40 mg daily and entresto 1 tab bid - blood pressures reviewed and remain stable, continue to monitor (3) Diastolic congestive heart failure: Qualifiers: Heart failure chronicity: chronic Qualified Code(s): I50.32 - Chronic diastolic (congestive) heart failure Code(s): I50.30 - Unspecified diastolic (congestive) heart failure Status: Chronic Assessment and Plan: Chronic, not in acute exacerbation Continue home medications (4) Chronic kidney disease, stage 3 (moderate): Qualifiers: Chronic kidney disease stage 3 subtype: stage 3a (GFR 45-59) Qualified Code(s): N18.31 - Chronic kidney disease, stage 3a Code(s): N18.3 - Chronic kidney disease, stage 3 (moderate) Status: Chronic Assessment and Plan: Chronic, renal function remains at baseline Time Spent With Patient Time with patient: 25 - 35 minutes Subjective Date/time seen: 12/14/24 08:44 Interval history: 69 year old male with past medical history of diastolic chf, hx of dvt, htn, ckd presents to the hospital for worsening pain and swelling to the right lower extremity distal to the knee. Patient is pleasant sitting up comfortably in bed. He continues to endorse slight pain to the right foot with ambulation but denies any impact with his ability to walk. Patient notes that he was previously on warfarin for a prior DVT years ago and states he completed that course with DVT was solution. He was started on Xarelto for his current DVT and denies missing any doses. Patient has no other complaints denying chest pain, shortness a breath, palpitations, nausea/vomiting, abdominal pain, and dizziness/lightheadedness. Review of Systems Review of Systems: All systems reviewed & are unremarkable except as noted in HPI and below Exam Narrative: AF HR 60 RR 18 Spo2 95 BP 142/62 General: male in no acute respiratory distress who is nontoxic appearing, sitting up in bed. HEENT: Normocephalic. Atraumatic. Extraocular movement intact. Sclera clear and anicteric. No facial asymmetry. Chest: Lungs are clear to auscultation bilaterally. No wheezes or crackles. CV: Heart was regular rate and rhythm. Abd: Abdomen was soft. Nontender. Nondistended. Positive bowel sounds. Ext: No clubbing, cyanosis. 2+ pitting edema to the RLE extending to the knee with pain on palpation. Slight erythema but no warmth. DP pulses bilaterally. LLE unremarkable. Neuro: Patient is alert. Speech is clear. Objective Data Vital Signs Vital Signs: Vital Signs - 24 hr 12/13/24 15:20 12/13/24 15:36 12/13/24 19:28 Temperature 97.8 F 98.1 F Pulse Rate 76 73 68 Respiratory Rate 16 14 20 Blood Pressure 122/66 146/58 H 133/74 Pulse Oximetry 96 98 97 Oxygen Delivery Room Air 12/13/24 19:30 12/13/24 19:31 12/13/24 20:01 Temperature Pulse Rate 69 67 69 Respiratory Rate 20 20 18 Blood Pressure 129/68 129/68 131/69 Pulse Oximetry 95 95 95 Oxygen Delivery 12/13/24 20:31 12/13/24 21:01 12/13/24 22:25 Temperature 97.1 F L Pulse Rate 70 68 66 Respiratory Rate 16 20 16 Blood Pressure 145/82 H 130/62 138/63 Pulse Oximetry 95 93 97 Oxygen Delivery 12/13/24 22:39 12/13/24 23:20 12/14/24 02:50 Temperature Pulse Rate 78 Respiratory Rate Blood Pressure Pulse Oximetry 97 Oxygen Delivery Room Air CPAP CPAP 12/14/24 05:00 12/14/24 08:00 Temperature 97 F L 96.8 F L Pulse Rate 54 L 57 L Respiratory Rate 18 18 Blood Pressure 130/75 131/66 Pulse Oximetry 98 96 Oxygen Delivery Intake/Output Intake/Output: Intake & Output 12/11/24 12/12/24 12/13/24 12/14/24 23:59 23:59 23:59 23:59 Intake Total 266.7 Output Total 925 Balance -658.3 Meds/Results Medications: Active Medications Generic Name Dose Route Start Last Admin Trade Name Freq PRN Reason Stop Dose Admin Acetaminophen 650 mg 12/13/24 21:45 12/14/24 05:12 Acetaminophen 325 Mg Tablet PO 650 mg Q4H PRN Administration pain 1-3 Dextrose 12.5 gm 12/13/24 21:45 Dextrose 50% 25 Gm/50 Ml Syringe IV PUSH PRN PRN Hypoglycemia Protocol Glucose 15 gm 12/13/24 21:45 Glucose Oral Gel 15 Gm Of Glucse In 37.5 Gm Tube PO PRN PRN Hypoglycemia Protocol Heparin Sodium (Porcine) 8,500 units 12/13/24 18:09 Heparin Sodium 5,000 Units/Ml Vial IV PUSH PRN PRN aPTT less than 55 seconds Heparin Sodium (Porcine) 4,000 units 12/13/24 18:09 Heparin Sodium 5,000 Units/Ml Vial IV PUSH PRN PRN aPTT 55 - 70 seconds Heparin Sodium/Dextrose 25,000 units in 250 mls @ 15 mls/hr 12/13/24 18:10 12/14/24 03:16 Heparin Sodium/D5w 100 Units/Ml IV CONT 1,500 units/hr .[id number] GLENDY 15 mls/hr Protocol Titration 1,500 UNITS/HR Dextrose 1,000 mls @ 100 mls/hr 12/13/24 21:45 Dextrose 5% 1,000 Ml IVPB PRN PRN Hypoglycemia Protocol Insulin Aspart 2 - 5 units 12/14/24 08:00 12/14/24 08:28 Insulin Aspart (*Bkc) 100 Units/Ml SUB-Q Not Given TIDWM [facility] Protocol Insulin Aspart 1 - 2 units 12/14/24 21:00 Insulin Aspart (*Bkc) 100 Units/Ml SUB-Q HS [facility] Protocol Oxycodone HCl 2.5 mg 12/13/24 21:45 Oxycodone Hcl (*Crx) 2.5 Mg Tab Ir PO Q4H PRN Pain Rated 7-10 Tramadol HCl 25 mg 12/13/24 21:45 Tramadol Hcl (*Crx) 25 Mg Tablet PO Q4H PRN Pain Rated 4-6 Radiology Results: ITS Impressions Venous Doppler Study 12/13/24 17:31 Impression: DVT detailed above Chest CTA 12/14/24 06:57 IMPRESSION: 1. No pulmonary embolus. Labs Labs: Laboratory Results - last 24 hr 12/13/24 12/13/24 12/14/24 18:31 22:33 02:01 WBC 7.4 6.0 RBC 4.60 4.16 L Hgb 15.2 13.8 L Hct 44.5 41.0 L MCV 96.7 98.6 MCH 33.0 33.2 MCHC 34.2 33.7 RDW 13.4 13.3 Plt Count 221 176 MPV 10.0 10.2 Immature Gran % (Auto) 0.9 H 1.2 H Neut % (Auto) 71.0 67.0 Lymph % (Auto) 17.0 L 20.6 Grady % (Auto) 9.6 H 9.7 H Eos % (Auto) 0.8 0.8 Baso % (Auto) 0.7 0.7 Lymph # (Auto) 1.25 1.23 Grady # (Auto) 0.7 H 0.6 Eos # (Auto) 0.1 0.1 Baso # (Auto) 0.1 0.0 Abs Immat Gran (auto) 0.07 H 0.07 H Absolute Neuts (auto) 5.2 4.0 Absolute Nucleated RBC 0.000 0.000 Nucleated RBC % 0.0 0.0 PT 20.5 H INR 1.8 APTT 32.0 83.6 H Sodium 139 136 L Potassium 4.2 4.0 Chloride 106 108 H Carbon Dioxide 24 22 Anion Gap 9 6 BUN 34 H 35 H Creatinine 1.53 H 1.35 H Estim Creat Clear Calc 59 67 Estimated GFR 45 L 52 L Glucose 104 110 POC Capillary Glucose 92 Calcium 9.8 9.2 Magnesium 2.3 Total Bilirubin 1.7 H 1.4 H AST 28 23 ALT 26 23 Alkaline Phosphatase 79 67 Total Protein 7.2 6.0 L Albumin 4.3 3.6 12/14/24 07:50 WBC RBC Hgb Hct MCV MCH MCHC RDW Plt Count MPV Immature Gran % (Auto) Neut % (Auto) Lymph % (Auto) Grady % (Auto) Eos % (Auto) Baso % (Auto) Lymph # (Auto) Grady # (Auto) Eos # (Auto) Baso # (Auto) Abs Immat Gran (auto) Absolute Neuts (auto) Absolute Nucleated RBC Nucleated RBC % PT INR APTT Sodium Potassium Chloride Carbon Dioxide Anion Gap BUN Creatinine Estim Creat Clear Calc Estimated GFR Glucose POC Capillary Glucose 91 Calcium Magnesium Total Bilirubin AST ALT Alkaline Phosphatase Total Protein Albumin Quality VTE Prophylaxis VTE prophylaxis: pharmacologic ordered
[2024-12-14 09:11] LABS: Partial Thromboplastin Time 115.7 Seconds (22.3-36.8)
[2024-12-14] MEDS: EMPAGLIFLOZIN 10 MG TABLET PO (10:00)
[2024-12-14] MEDS: FUROSEMIDE 40 MG TABLET PO (10:00)
[2024-12-14] MEDS: SPIRONOLACTONE 25 MG TABLET PO (10:00)
[2024-12-14] MEDS: SACUBITRIL/VALSARTAN 97-103 MG TABLET 1 TAB PO ×2 (10:00→21:09)
[2024-12-14] MEDS: ATORVASTATIN 40 MG TABLET PO (10:00)
[2024-12-14 12:00] VITALS: BP 142/62; PULSE 60; RESP 18; TEMP 35.9; O2SAT 95
[2024-12-14] MEDS: HEPARIN SOD/D5W 100 UNITS/ML 25,000 UNITS/250 ML BAG 13 UNITS IV CONT (12:54)
[2024-12-14 15:30] LABS: Partial Thromboplastin Time 99.8 Seconds (22.3-36.8)
[2024-12-14 16:00] VITALS: BP 132/64; PULSE 65; RESP 18; TEMP 36.5; O2SAT 94
[2024-12-14] MEDS: CALCIUM CARBONATE (OSCAL) 500 MG TABLET PO (17:23)
[2024-12-14] MEDS: CHOLECALCIFEROL (VITAMIN D3) 25 MCG (1,000 UNITS) TABLET 50 MCG PO (17:23)
--- NOTE | 2024-12-14 18:57 | WPDONCCN ---
Assessment and Plan Assessment and plan (1) DVT (deep venous thrombosis): Qualifiers: Affected thrombotic vein of extremity: femoral Chronicity: acute DVT location: lower extremity Laterality: right Qualified Code(s): I82.411 - Acute embolism and thrombosis of right femoral vein Code(s): I82.409 - Acute embolism and thrombosis of unspecified deep veins of unspecified lower extremity Status: Acute Assessment and Plan: Patient is a pleasant 69-year-old male with history of unprovoked left lower extremity DVT diagnosed 10 years ago for which he was treated with warfarin and then was diagnosed with likely provoked right lower extremity superficial femoral vein DVT on November 06, 2024 after prolonged travel. He was started on Xarelto but unfortunately came back into the hospital with worsening of the right lower extremity swelling and pain. Doppler studies done on December 13 showed thrombus in the right femoral and popliteal vein. CTA chest showed no evidence of pulmonary embolism. Patient was started on heparin drip with some improvement. I will order CT abdomen and pelvis to look for any underlying risk factors/malignancy. I Would recommend Lovenox 1 milligram/kilogram twice a day at the time of discharge that he should continue for 4 weeks duration before switching him to Eliquis. He will follow-up with me after discharge for repeat Doppler studies and further evaluation including hypercoagulable workup. He has appointment with me in February 2025. Have answered all the questions to patient and the family satisfaction. HPI Data of Consult Date/Time: 12/14/24 18:57 Requesting Physician: Robert Zavaleta MD Primary Care Provider: Theresa Hicks DO Consult Narrative Narrative: Fred Salinas is a 69 year old male with history of unprovoked left lower extremity diagnosed 10 years ago and treated with warfarin for about 2-3 months duration. Patient now presented to the ER with worsening of the pain and swelling of the right lower extremity. He was recently diagnosed with possibly provoked DVT of the right lower extremity on November 06, 2024 after prolonged driving. He he was started on Xarelto but came into the hospital with worsening of the pain and the swelling in the right lower extremity. He has no other previous history of thromboembolic events including stroke and heart attack. Denies any history of malignancy. Denies any other new complaints. Patient was started on heparin drip with some improvement in the swelling and erythema of the right lower extremity. Review of Systems Review of Systems: Twelve point review of system was reviewed [facility] Past Medical History Medical History Hepatitis C antibody test negative (01/08/17) Diastolic congestive heart failure History of cardiac disorder Positive colorectal cancer screening using Cologuard test Arthritis History of blood clots LLE DVT 2009 High cholesterol HTN (hypertension) Chronic kidney disease, stage 3 (moderate) Hypertensive chronic kidney disease with stage 1 through stage 4 chronic kidney disease, or unspecified chronic kidney disease Surgical History Surgical History Hx of cholecystectomy (~1999) History of hernia repair Family History Family History Father Hypertension Family history of elevated blood lipids Family history of cardiovascular disease, Onset Age: 86 Mother Hypertension Family history of kidney disease Familial primary pulmonary hypertension Grandparent Diabetes mellitus Social History Social History Smoking status: Never smoker Second hand tobacco smoke exposure: No Alcohol intake: never Substance use: never Lack of Transportation: No Lack of Food: Never True Current Housing: I Have Housing Concerned About Future Housing: No Difficulty Paying Gas/Electric Bills: No Difficulty Paying for Meds: No Currently Unemployed: No Education: Associate Degree Difficulty w/ Childcare or Family Care: No Living arrangements: with family Gender identity (if verbalized by the patient): Male Sexual Orientation (if Verbalized by the Patient): Straight or Heterosexual Spiritual care concerns: No Meds Home Medications and Allergies Home Medications ?Medication ?Instructions ?Recorded ?Confirmed ?Type spironolactone 25 mg tablet 25 mg PO DAILY 06/20/20 12/13/24 History sildenafil 100 mg tablet 100 mg PO DAILY PRN sexual 12/29/21 12/13/24 Rx activity #20 tabs atorvastatin 40 mg tablet 40 mg PO QAM 04/27/22 12/13/24 History sacubitril 97 mg-valsartan 103 mg 1 tablet PO BID 09/21/22 12/13/24 History tablet (Entresto) empagliflozin 10 mg tablet 10 mg PO DAILY 07/11/23 12/13/24 History (Jardiance) cholecalciferol (vitamin D3) 50 50 mcg PO QPM 11/15/23 12/13/24 History mcg (2,000 unit) tablet furosemide 40 mg tablet 40 mg PO DAILY 03/06/24 12/13/24 History semaglutide 2 mg/dose (8 mg/3 mL) 2 mg subcut WEEKLY 05/02/24 12/13/24 History subcutaneous pen injector (Ozempic) calcium carbonate 600 mg PO QPM 12/13/24 12/13/24 History rivaroxaban 20 mg tablet 20 mg PO DAILY 12/13/24 12/13/24 History Allergies Allergy/AdvReac Type Severity Reaction Status Date / Time lisinopril AdvReac Unknown cough Verified 12/13/24 22:57 Vital Signs Vital Signs - 24 hr 12/13/24 19:28 12/13/24 19:30 12/13/24 19:31 Temperature Pulse Rate 68 69 67 Respiratory Rate 20 20 20 Blood Pressure 133/74 129/68 129/68 Pulse Oximetry 97 95 95 Oxygen Delivery 12/13/24 20:01 12/13/24 20:31 12/13/24 21:01 Temperature Pulse Rate 69 70 68 Respiratory Rate 18 16 20 Blood Pressure 131/69 145/82 H 130/62 Pulse Oximetry 95 95 93 Oxygen Delivery 12/13/24 22:25 12/13/24 22:39 12/13/24 23:20 Temperature 36.2 C L Pulse Rate 66 78 Respiratory Rate 16 Blood Pressure 138/63 Pulse Oximetry 97 97 Oxygen Delivery Room Air CPAP 12/14/24 02:50 12/14/24 05:00 12/14/24 08:00 Temperature 36.1 C L 36.0 C L Pulse Rate 54 L 57 L Respiratory Rate 18 18 Blood Pressure 130/75 131/66 Pulse Oximetry 98 96 Oxygen Delivery CPAP 12/14/24 08:00 12/14/24 12:00 12/14/24 16:00 Temperature 35.9 C L 36.5 C Pulse Rate 60 65 Respiratory Rate 18 18 Blood Pressure 142/62 H 132/64 Pulse Oximetry 95 94 Oxygen Delivery CPAP Exam Narrative: Lungs are clear to auscultation bilaterally Cardiovascular regular rate rhythm no murmurs Abdomen soft nontender nondistended Extremity showed swelling and erythema of the right lower extremity Results Labs 12/14/24 02:01 12/14/24 02:01 Labs: Short CBC 12/13/24 12/14/24 Range/Units 18:31 02:01 WBC 7.4 6.0 (4.5-10.0) K/mm3 Hgb 15.2 13.8 L (14.0-18.0) g/dL Hct 44.5 41.0 L (42.0-52.0) % Plt Count 221 176 (150-375) k/mm3 BMP 12/13/24 12/14/24 18:31 02:01 Sodium 139 136 L Potassium 4.2 4.0 Chloride 106 108 H Carbon Dioxide 24 22 BUN 34 H 35 H Creatinine 1.53 H 1.35 H Glucose 104 110 Calcium 9.8 9.2 Liver Function 12/13/24 12/14/24 Range/Units 18:31 02:01 Total Bilirubin 1.7 H 1.4 H (0.2-1.3) mg/dL AST 28 23 (17-59) U/L ALT 26 23 (6-50) U/L Alkaline Phosphatase 79 67 (38-126) U/L Albumin 4.3 3.6 (3.5-5.1) g/dL
[2024-12-14 20:00] VITALS: BP 121/52; PULSE 67; RESP 18; TEMP 36.5; O2SAT 93
[2024-12-14 21:08] LABS: Partial Thromboplastin Time 89.6 Seconds (22.3-36.8)
[2024-12-15] VITALS: BP 121/59; PULSE 59; RESP 20; TEMP 36.4; O2SAT 95
[2024-12-15 04:00] VITALS: BP 134/67; PULSE 61; RESP 20; TEMP 36.7; O2SAT 98
[2024-12-15] MEDS: ACETAMINOPHEN 325 MG TABLET 650 MG PO (05:23)
[2024-12-15 05:33] LABS: Hematocrit 42.7 % (42.0-52.0); Hemoglobin 14.4 g/dL (14.0-18.0); Mean Corpuscular HGB Conc 33.7 g/dl (32-36); Mean Corpuscular Hemoglobin 33.0 pg (26-34); Mean Corpuscular Volume 97.7 fl (80-100); Platelet Count Result 185 k/mm3 (150-375); Red Blood Count 4.37 M/mm3 (4.6-6.20); White Blood Count 6.8 K/mm3 (4.5-10.0)
[2024-12-15 05:58] LABS: Alanine Aminotransferase 23 U/L (6-50); Albumin Level 3.6 g/dL (3.5-5.1); Alkaline Phosphatase 76 U/L (38-126); Anion Gap 4 mmol/L (4-12); Aspartate Amino Transferase 34 U/L (17-59); Bilirubin,Total 1.8 mg/dL (0.2-1.3); Blood Urea Nitrogen 26 mg/dL (9-20); Calcium 9.3 mg/dL (8.4-10.2); Carbon Dioxide 24 mmol/L (22-30); Chloride 106 mmol/L (98-107); Estimated CRCL calculation 71 ml/min; Estimated Glomerular Filt Rate 56; Glucose 106 mg/dL (65-110); Potassium 4.0 mmol/L (3.4-5.0); Sodium 134 mmol/L (137-145); Total Protein 6.1 g/dL (6.3-8.2)
[2024-12-15 06:04] LABS: Partial Thromboplastin Time 84.5 Seconds (22.3-36.8)
[2024-12-15 08:00] VITALS: BP 124/62; PULSE 60; RESP 18; TEMP 35.7; O2SAT 91
--- NOTE | 2024-12-15 08:06 | PM.IMPN ---
Progress Note: A&P Assessment and Plan (1) Deep vein blood clot of right lower extremity: Qualifiers: Affected thrombotic vein of extremity: femoral Chronicity: unspecified Qualified Code(s): I82.411 - Acute embolism and thrombosis of right femoral vein Code(s): I82.401 - Acute embolism and thrombosis of unspecified deep veins of right lower extremity Status: Acute Assessment and Plan: Originally diagnosed with a DVT on 11/06/2024 via venous Doppler demonstrating right superficial femoral vein DVT, he was started on Xarelto and has not missed a dose. Patient notes he had a DVT years ago in the left lower extremity as well, he was on Coumadin and then taken off after completing the course. He has not had any long road trips greater than 3 hours, no surgeries immobilizations or blood trauma. Continue heparin drip per protocol Chest CTA negative for PE Venous doppler: right femoral and popliteal dvt Neurovascular exam is intact. Venous ultrasound does not demonstrate soft tissue gas or irregularities. Do not suspect cellulitis Monitor vital signs, I&Os, shortness of breath and chest pain. Monitor serum electrolytes, PTT, CBC Monitor for bloody bowel movements,chest pain,SOB or dizziness/lightheadedness Heme/onc consulted CT abdomen and pelvis to look for any underlying risk factors/malignancy. Recommend Lovenox 1 milligram/kilogram twice a day at the time of discharge that he should continue for 4 weeks duration before switching him to Eliquis. Follow-up with me after discharge for repeat Doppler studies and further evaluation including hypercoagulable workup. He has appointment with me in February 2025. (2) HTN (hypertension): Code(s): I10 - Essential (primary) hypertension Status: Acute Assessment and Plan: chronic, continue home medications - lasix 40 mg daily and entresto 1 tab bid - blood pressures reviewed and remain stable, continue to monitor (3) Diastolic congestive heart failure: Qualifiers: Heart failure chronicity: chronic Qualified Code(s): I50.32 - Chronic diastolic (congestive) heart failure Code(s): I50.30 - Unspecified diastolic (congestive) heart failure Status: Chronic Assessment and Plan: Chronic, not in acute exacerbation Continue home medications (4) Chronic kidney disease, stage 3 (moderate): Qualifiers: Chronic kidney disease stage 3 subtype: stage 3a (GFR 45-59) Qualified Code(s): N18.31 - Chronic kidney disease, stage 3a Code(s): N18.3 - Chronic kidney disease, stage 3 (moderate) Status: Chronic Assessment and Plan: Chronic, renal function remains at baseline Time Spent With Patient Time with patient: 25 - 35 minutes Subjective Date/time seen: 12/15/24 08:06 Interval history: 69 year old male with past medical history of diastolic chf, hx of dvt, htn, ckd presents to the hospital for worsening pain and swelling to the right lower extremity distal to the knee. Review of Systems Review of Systems: All systems reviewed & are unremarkable except as noted in HPI and below Exam Narrative: AF HR General: male in no acute respiratory distress who is nontoxic appearing, sitting up in bed. HEENT: Normocephalic. Atraumatic. Extraocular movement intact. Sclera clear and anicteric. No facial asymmetry. Chest: Lungs are clear to auscultation bilaterally. No wheezes or crackles. CV: Heart was regular rate and rhythm. Abd: Abdomen was soft. Nontender. Nondistended. Positive bowel sounds. Ext: No clubbing, cyanosis. 2+ pitting edema to the RLE extending to the knee with pain on palpation. Slight erythema but no warmth. DP pulses bilaterally. LLE unremarkable. Neuro: Patient is alert. Speech is clear. Objective Data Vital Signs Vital Signs: Vital Signs - 24 hr 12/14/24 12:00 12/14/24 16:00 12/14/24 20:00 Temperature 96.7 F L 97.7 F 97.7 F Pulse Rate 60 65 67 Respiratory Rate 18 18 18 Blood Pressure 142/62 H 132/64 121/52 L Pulse Oximetry 95 94 93 Oxygen Delivery 12/14/24 23:48 12/15/24 00:00 12/15/24 04:00 Temperature 97.5 F L 98.0 F Pulse Rate 59 L 61 Respiratory Rate 20 20 Blood Pressure 121/59 L 134/67 Pulse Oximetry 95 98 Oxygen Delivery CPAP Intake/Output Intake/Output: Intake & Output 12/12/24 12/13/24 12/14/24 12/15/24 23:59 23:59 23:59 23:59 Intake Total 907.3 200 Output Total 2225 500 Balance -1317.7 -300 Meds/Results Medications: Active Medications Generic Name Dose Route Start Last Admin Trade Name Freq PRN Reason Stop Dose Admin Acetaminophen 650 mg 12/13/24 21:45 12/15/24 05:23 Acetaminophen 325 Mg Tablet PO 650 mg Q4H PRN Administration pain 1-3 Atorvastatin Calcium 40 mg 12/14/24 09:00 12/14/24 10:00 Atorvastatin 40 Mg Tablet PO 40 mg QAM GLENDY Administration Calcium Carbonate 500 mg 12/14/24 18:00 12/14/24 17:23 Calcium Carbonate (Oscal) 500 Mg Tablet PO 500 mg QPM GLENDY Administration Dextrose 12.5 gm 12/13/24 21:45 Dextrose 50% 25 Gm/50 Ml Syringe IV PUSH PRN PRN Hypoglycemia Protocol Empagliflozin 10 mg 12/14/24 09:00 12/14/24 10:00 Empagliflozin 10 Mg Tablet PO 10 mg DAILY GLENDY Administration Furosemide 40 mg 12/14/24 09:00 12/14/24 10:00 Furosemide 40 Mg Tablet PO 40 mg DAILY GLENDY Administration Glucose 15 gm 12/13/24 21:45 Glucose Oral Gel 15 Gm Of Glucse In 37.5 Gm Tube PO PRN PRN Hypoglycemia Protocol Heparin Sodium (Porcine) 8,500 units 12/13/24 18:09 Heparin Sodium 5,000 Units/Ml Vial IV PUSH PRN PRN aPTT less than 55 seconds Heparin Sodium (Porcine) 4,000 units 12/13/24 18:09 Heparin Sodium 5,000 Units/Ml Vial IV PUSH PRN PRN aPTT 55 - 70 seconds Heparin Sodium/Dextrose 25,000 units in 250 mls @ 13 mls/hr 12/13/24 18:10 12/14/24 15:00 Heparin Sodium/D5w 100 Units/Ml IV CONT 1,300 units/hr .[id number] GLENDY 13 mls/hr Protocol Titration 1,300 UNITS/HR Dextrose 1,000 mls @ 100 mls/hr 12/13/24 21:45 Dextrose 5% 1,000 Ml IVPB PRN PRN Hypoglycemia Protocol Insulin Aspart 2 - 5 units 12/14/24 08:00 12/14/24 17:22 Insulin Aspart (*Bkc) 100 Units/Ml SUB-Q Not Given TIDWM GLENDY Protocol Insulin Aspart 1 - 2 units 12/14/24 21:00 12/14/24 22:55 Insulin Aspart (*Bkc) 100 Units/Ml SUB-Q Not Given HS GLENDY Protocol Oxycodone HCl 2.5 mg 12/13/24 21:45 Oxycodone Hcl (*Crx) 2.5 Mg Tab Ir PO Q4H PRN Pain Rated 7-10 Sacubitril/Valsartan 1 tab 12/14/24 09:00 12/14/24 21:09 Sacubitril/Valsartan 97-103 Mg Tablet PO 1 tab Q12HR GLENDY Administration Spironolactone 25 mg 12/14/24 09:00 12/14/24 10:00 Spironolactone 25 Mg Tablet PO 25 mg DAILY GLENDY Administration Tramadol HCl 25 mg 12/13/24 21:45 Tramadol Hcl (*Crx) 25 Mg Tablet PO Q4H PRN Pain Rated 4-6 Vitamin D 50 mcg 12/14/24 18:00 12/14/24 17:23 Cholecalciferol (Vitamin D3) 25 Mcg (1,000 Units) Tablet PO 50 mcg QPM GLENDY Administration Radiology Results: ITS Impressions Venous Doppler Study 12/13/24 17:31 Impression: DVT detailed above Chest CTA 12/14/24 06:57 IMPRESSION: 1. No pulmonary embolus. Labs Labs: Laboratory Results - last 24 hr 12/14/24 12/14/24 12/14/24 08:00 11:35 15:09 WBC RBC Hgb Hct MCV MCH MCHC RDW Plt Count MPV APTT 115.7 H 99.8 H Sodium Potassium Chloride Carbon Dioxide Anion Gap BUN Creatinine Estim Creat Clear Calc Estimated GFR Glucose POC Capillary Glucose 118 H Calcium Total Bilirubin AST ALT Alkaline Phosphatase Total Protein Albumin 12/14/24 12/14/24 12/14/24 16:44 20:50 21:38 WBC RBC Hgb Hct MCV MCH MCHC RDW Plt Count MPV APTT 89.6 H Sodium Potassium Chloride Carbon Dioxide Anion Gap BUN Creatinine Estim Creat Clear Calc Estimated GFR Glucose POC Capillary Glucose 120 H 122 H Calcium Total Bilirubin AST ALT Alkaline Phosphatase Total Protein Albumin 12/15/24 12/15/24 05:19 07:26 WBC 6.8 RBC 4.37 L Hgb 14.4 Hct 42.7 MCV 97.7 MCH 33.0 MCHC 33.7 RDW 13.1 Plt Count 185 MPV 10.3 APTT 84.5 H Sodium 134 L Potassium 4.0 Chloride 106 Carbon Dioxide 24 Anion Gap 4 BUN 26 H Creatinine 1.27 Estim Creat Clear Calc 71 Estimated GFR 56 L Glucose 106 POC Capillary Glucose 114 H Calcium 9.3 Total Bilirubin 1.8 H AST 34 ALT 23 Alkaline Phosphatase 76 Total Protein 6.1 L Albumin 3.6 Quality VTE Prophylaxis VTE prophylaxis: pharmacologic ordered
[2024-12-15] MEDS: EMPAGLIFLOZIN 10 MG TABLET PO (10:37)
[2024-12-15] MEDS: ATORVASTATIN 40 MG TABLET PO (10:37)
[2024-12-15] MEDS: ENOXAPARIN 40 MG/0.4 ML SYRINGE SUB-Q (10:37)
[2024-12-15] MEDS: FUROSEMIDE 40 MG TABLET PO (10:37)
[2024-12-15] MEDS: SPIRONOLACTONE 25 MG TABLET PO (10:37)
[2024-12-15] MEDS: SACUBITRIL/VALSARTAN 97-103 MG TABLET 1 TAB PO (10:37)
[2024-12-15] MEDS: ENOXAPARIN 100 MG/ML SYRINGE 95 MG SUB-Q (10:38)
[2024-12-15 12:00] VITALS: BP 124/74; PULSE 71; RESP 18; TEMP 36.1; O2SAT 96
--- NOTE | 2024-12-15 15:39 | P.DS_ITS ---
DS: Admitting Diagnosis Discharge Date 12/15/24 Admitting Diagnosis deep vein blood clot of right lower extremity htn chf ckd DS: Discharge Diagnosis Discharge Diagnosis (1) Deep vein blood clot of right lower extremity: Qualifiers: Affected thrombotic vein of extremity: femoral Chronicity: unspecified Qualified Code(s): I82.411 - Acute embolism and thrombosis of right femoral vein Code(s): I82.401 - Acute embolism and thrombosis of unspecified deep veins of right lower extremity Status: Acute (2) HTN (hypertension): Code(s): I10 - Essential (primary) hypertension Status: Acute (3) Diastolic congestive heart failure: Qualifiers: Heart failure chronicity: chronic Qualified Code(s): I50.32 - Chronic diastolic (congestive) heart failure Code(s): I50.30 - Unspecified diastolic (congestive) heart failure Status: Chronic (4) Chronic kidney disease, stage 3 (moderate): Qualifiers: Chronic kidney disease stage 3 subtype: stage 3a (GFR 45-59) Qualified Code(s): N18.31 - Chronic kidney disease, stage 3a Code(s): N18.3 - Chronic kidney disease, stage 3 (moderate) Status: Chronic DS: Summary Hospital Course Reason for hospitalization: deep vein blood clot of right lower extremity htn chf ckd Hospital Course: 69 year old male with past medical history of diastolic chf, hx of dvt, htn, ckd presents to the hospital for worsening pain and swelling to the right lower extremity distal to the knee. Patient was originally diagnosed with a DVT on 11/06/2024 via venous Doppler demonstrating right superficial femoral vein DVT, he was started on Xarelto and has not missed a dose. A repeat venous doppler continues to show a right femoral and popliteal dvt. A chest cta was obtained and showed no pe. Given that patient failed xarelto therapy, he was started on a heparin drip and heme/onc consulted. Heme/onc recommended Lovenox 1 milligram/kilogram twice a day at the time of discharge that he should continue for 4 weeks duration before switching him to Eliquis. Had an in depth conversation about the risks vs benefits of anticoagulation and he stated understanding. Patient also notes that he has been on lovenox injections at home previously and is comfortably with administering these himself. Prior to discharge had nurse reteach patient how to administer and she stated he did well. Patient to continue anticoagulation and follow up with heme/onc for repeat Doppler studies and further evaluation including hypercoagulable workup. He has appointment with Dr. Rodriguez in February 2025. Discussed with patient that if the pain/swelling to the extremity worsens or if he develops chest pain or shortness of breath he is to return to the hospital for reevaluation of the dvts given the concern of a hypercoagulable state. He states understanding. Prior to discharge heme/onc wanted patient to obtain a ct abdomen/pelvis to rule out malignancy causing the dvts. The ct showed no lesion suspicious for malignancy or metastatic disease. However it did show a single small loop of mildly dilated small bowel in the left upper quadrant with transition point along the lateral abdominal wall which could be transient or related to early or partial small bowel obstruction. Likely a transient finding as patient tolerated a diet throughout admission and denied any nausea/vomiting or abdominal pain. Abdominal exam remained benign throughout hospitalization as well and he was pas sing flatus and having bowel movements. Patient had no complaints at time of discharge. He states he is ambulating well without assistance and denies any dizziness/lightheadedness. He also denies any chest pain, palpitations, shortness of breath, palpitations, nausea/vomiting and abdominal pain. Patient discharged home in a stable condition. He was instructed to follow up with his PCP in 1 week and heme/onc as scheduled. Status at Discharge Functional status at discharge: independent ambulation Time Spent with Patient Time attestation: Total time spent providing and/or coordinating discharge services: Time spent: Greater than 30 minutes Exam Narrative: AF HR 71 RR 18 SpO2 96 BP 124/74 General: male in no acute respiratory distress who is nontoxic appearing, sitting up in bed. HEENT: Normocephalic. Atraumatic. Extraocular movement intact. Sclera clear and anicteric. No facial asymmetry. Chest: Lungs are clear to auscultation bilaterally. No wheezes or crackles. CV: Heart was regular rate and rhythm. Abd: Abdomen was soft. Nontender. Nondistended. Positive bowel sounds. Ext: No clubbing, cyanosis. 2+ pitting edema to the RLE extending to the knee with pain on palpation. Slight erythema but no warmth. DP pulses bilaterally. LLE unremarkable. Neuro: Patient is alert. Speech is clear. DS: Data Data Completed and Pending Completed studies during hospitalization: abdomen/pelvis ct chest cta venous doppler Labs on day of discharge: Labs from last 24 hours 12/15/24 12/15/24 12/15/24 11:44 07:26 05:19 WBC 6.8 RBC 4.37 L Hgb 14.4 Hct 42.7 MCV 97.7 MCH 33.0 MCHC 33.7 RDW 13.1 Plt Count 185 MPV 10.3 APTT 84.5 H Sodium 134 L Potassium 4.0 Chloride 106 Carbon Dioxide 24 Anion Gap 4 BUN 26 H Creatinine 1.27 Estim Creat Clear Calc 71 Estimated GFR 56 L Glucose 106 POC Capillary Glucose 145 H 114 H Calcium 9.3 Total Bilirubin 1.8 H AST 34 ALT 23 Alkaline Phosphatase 76 Total Protein 6.1 L Albumin 3.6 12/14/24 12/14/24 12/14/24 21:38 20:50 16:44 WBC RBC Hgb Hct MCV MCH MCHC RDW Plt Count MPV APTT 89.6 H Sodium Potassium Chloride Carbon Dioxide Anion Gap BUN Creatinine Estim Creat Clear Calc Estimated GFR Glucose POC Capillary Glucose 122 H 120 H Calcium Total Bilirubin AST ALT Alkaline Phosphatase Total Protein Albumin Discharge Plan Discharge Attending physician on discharge: Mando Ta Consulting providers: Prabhjot Rodriguez; Ira Jackson Discharging Clinician: Ira Jackson Anticipated Discharge Date/Time: 12/15/24 12:36 Patient Disposition: Home Activity: as tolerated Diet: as tolerated and heart healthy Discharge Instructions: Discharge disposition: Patient admitted to the hospital for a worsening deep venous thrombosis to the lower extremity, failed outpatient xarelto treatment Evaluated by hematology/oncology Lovenox 135mg twice a day, continue for 4 weeks duration before switching him to Eliquis 5 mg twice a day. Strict bleeding precautions since you are being started on blood thinners including shaving with an electric razor, holding pressure for greater than 20 minutes for injury, protection of had with any falls, etc. Follow-up with Dr. Rodriguez after discharge for repeat Doppler studies and further evaluation including hypercoagulable workup. Keep appointment with Dr. Rodriguez in February 2025. Monitor blood pressures Take caution while standing, rising, or moving Change positions slowly taking a break between each position change If you standing feel dizzy sit back down and take a break Encouraged to continue with yearly vaccinations Return to the emergency department if he developed sudden shortness of breath, chest pain, nausea, vomiting, upset stomach or intractable diarrhea Return to the emergency department if you develop fever greater than 100.5 Follow-up with the primary care physician within 1-2 weeks Thank you for [facility] for your healthcare needs Patient Instructions: Enoxaparin (By injection), Apixaban (By mouth), Deep Vein Thrombosis (DC), Blood Thinners (DC) Patient Language: Kiswahili Stand Alone Forms: General Discharge Information Follow-up/Referrals: Prabhjot Rodriguez MD [Physician, Hematology] - Call for Appointment Theresa Hicks DO [Primary Care Provider, Family Practice] - 1 Week Discharge Medications: New enoxaparin [Lovenox] 100 mg/mL Syringe 95 mg subcut Q12HR 28 Days Qty: 53.2 0RF enoxaparin [Lovenox] 40 mg/0.4 mL Syringe 40 mg subcut Q12HR 28 Days Qty: 22.4 0RF Eliquis 5 mg tablet 5 mg PO BID Qty: 60 0RF Rx Instructions: Start 5 mg twice a day after completing the lovenox course. Continued Ozempic 2 mg/dose (8 mg/3 mL) pen injector 2 mg SUBCUT WEEKLY Patient Comments: Pt. takes on Saturdays spironolactone 25 mg tablet 25 mg PO DAILY atorvastatin 40 mg tablet 40 mg PO QAM Entresto 97-103 mg tablet 1 tablet PO BID Jardiance 10 mg tablet 10 mg PO DAILY sildenafil 100 mg tablet 100 mg PO DAILY PRN (Reason: sexual activity) Qty: 20 0RF Rx Instructions: administer 30 minutes to 4 hours before activity cholecalciferol (vitamin D3) 50 mcg (2,000 unit) tablet 50 mcg PO QPM furosemide 40 mg tablet 40 mg PO DAILY calcium carbonate 600 mg calcium (1,500 mg) tablet 600 mg PO QPM Discontinued rivaroxaban 20 mg tablet 20 mg PO DAILY Rx Instructions: Take with biggest meal Date of admission: 12/13/24 18:28 Primary Care Provider: Theresa Hicks Admitting Provider: Robert Zavaleta Attending physician on admission: Robert Zavaleta Condition: Stable Hospitalist MIPS Heart Failure (Exclusion) Patient has history of Heart Transplant or Left Ventricular Assistive Device?: No IF YES, STOP HERE Heart Failure (Qualifier) Patient has current or prior documentation of LVEF less than or equal to 40%, or mod/servere depressed LVSF?: No IF NO, STOP HERE
== END 2024-12-15 14:50 | disposition home or self-care (01) | DRG 300 ==
LOC: ANHED 16:03 → ANH3MEDSUR 19:36
PROVIDERS: General Practice; Admitting Provider Internal Medicine; Emergency Provider Student in an Organized Health Care Education/Training Program; PCP Family Medicine; Visit Provider Student in an Organized Health Care Education/Training Program
DX: I82.411 Acute embolism and thrombosis of right femoral vein (principal); I13.0 Hypertensive heart and chronic kidney disease with heart failure and stage 1 through stage 4 chronic kidney disease, or unspecified chronic kidney disease; I50.32 Chronic diastolic (congestive) heart failure; K56.690 Other partial intestinal obstruction; N18.30 Chronic kidney disease, stage 3 unspecified; E78.00 Pure hypercholesterolemia, unspecified; M19.90 Unspecified osteoarthritis, unspecified site; Z79.01 Long term (current) use of anticoagulants; Z79.891 Long term (current) use of opiate analgesic; Z90.49 Acquired absence of other specified parts of digestive tract; Z86.79 Personal history of other diseases of the circulatory system
CPT/HCPCS: 36415; 71275; 74177; 80053; 82948; 83735; 85025; 85027; 85610; 85730; 93971; 99285; A9270; J1644; J1650; Q9967

== ENCOUNTER 2024-12-26 22:37 | Emergency (ER) | payer MEDICARE, SELFPAY ==
--- OUTSIDE RECORDS SUMMARY | 2024-12-26 22:40 | XMS_ITS | Clinical Summary ---
Author Organization [facility] Address [address] [place] [address] Care Team Providers Care Bleach Packer Name Role Phone Abdiaziz Wisdom MD Primary Care Provider [phone] Source Comments [facility],non-owned Affiliates and Associated Physician Practices is amultiple site organization consisting of ambulatory clinics and hospital sitesin [place], [place], [place] and [place]. This disclosure is being madepursuant to the Care Everywhere program and may not contain all information available regarding this patient. 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
--- OUTSIDE RECORDS SUMMARY | 2024-12-26 22:40 | XMS_ITS | Clinical Summary ---
Author Organization [facility] Address [address] [place] [phone] Phone Care Team Providers Care Electrical Engineering Intern Name Role Phone Theresa Hicks MD Primary Care Provider [phone] Allergies Active Allergy Reactions Criticality Noted Date [...] 01/24/2004 Influenza Vaccine (#1) 2024 Insurance MEDICARE [facility] Care Teams Electrical Engineering Intern Relationship Specialty Start Date End Date Theresa Hicks MD [address] [place] [address] PCP - General Family Medicine 07/01/20
--- OUTSIDE RECORDS SUMMARY | 2024-12-26 22:40 | XMS_ITS | Clinical Summary ---
Author Organization [facility] [address] Address [address] [place] [address] Care Team Providers Care Truck Hopper Name Role Phone Theresa Hicks Primary Care Provider [phone] Cecelia Conley MD Unavailable [phone] Travon Bolaños MD Unavailable Allergies Active Allergy Reactions Criticality Noted Date Comments Lisinopril Cough Low 02/11/2020 Medications psyllium, aspartame, SF (METAMUCIL SF) 3.4 gram packet Take 1 packet by mouth daily 15 packet 09/18/19 21 Active Additional Information Patient taking differently:1 packet oralAs needed, Reported on 11/24/2024 acetaminophen (TYLENOL) 32 mg/mL Take 20.3 mL (650 mg total) by mouth every 6 (six) hours as needed for pain 10/29/19 21 Active calcium carbonate (OS-DAMARI) 1,500 mg (600 mg elemental) tablet Take 1 tablet (1,500 mg total) by mouth daily 10/17/19 22 Active cholecalcifero l (VITAMIN D-3) 2000 unit tablet Take 1 tablet (2,000 Units total) by mouth daily 10/17/19 22 Active Entresto 97-103 mg tablet TAKE 1 TABLET BY MOUTH TWICE A DAY 180 tablet 6 09/26/19 24 Active aspirin 81 mg enteric coated tablet TAKE 1 TABLET BY MOUTH EVERY DAY 90 tablet 3 05/21/19 25 Active Additional Information Patient not taking.Reported on 11/24/2024 spironolactone (ALDACTONE) 25 mg tablet Take 1 tablet (25 mg total) by mouth daily 90 tablet 3 06/03/19 25 Active solriamfetoL (Sunosi) 150 mg tablet Take 1 tablet (150 mg total) by mouth daily 30 tablet 08/08/19 25 Active Additional Information Patient not taking.Reported on 11/24/2024 atorvastatin (LIPITOR) 40 mg tablet TAKE 1 TABLET BY MOUTH EVERY DAY 90 tablet 1 08/18/19 25 Active Jardiance 10 mg tablet TAKE 1 TABLET BY MOUTH EVERY DAY 90 tablet 1 08/18/19 25 Active furosemide (LASIX) 40 mg tablet TAKE 1 TABLET BY MOUTH EVERY DAY 90 tablet 1 08/27/19 25 Active modafiniL (PROVIGIL) 200 mg tabletIndicati ons: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 - TAKE THE SECOND DOSE AFTER 2PM 60 tablet 10/07/19 25 Active Additional Information Patient not taking.Reported on 11/24/2024 semaglutide (Ozempic) 2 mg/dose (8 mg/3 mL) pen injector injection INJECT 0.75 ML (2 MG TOTAL) UNDER THE SKIN ONCE A WEEK 2 mL 3 11/28/19 25 Active HYDROcodone-ac etaminophen (NORCO) 5-325 mg per tablet 1 tablet every 8 (eight) hours as needed 11/06/19 25 Active Xarelto DVT-PE Treat 30d Start 15 mg (42)- 20 mg (9) tablets,dose pack tablet Take 15 mg by mouth 2 (two) times a day Active semaglutide (Ozempic) 2 mg/dose (8 mg/3 mL) pen injector injection INJECT 0.75 ML (2 MG TOTAL) UNDER THE SKIN ONCE A WEEK 3 mL 3 08/05/19 25 025 Discontinued Active Problems Problem Noted Date Diagnosed Date Restrictive lung disease 12/04/2024 LENO (obstructive sleep apnea) 12/04/2023 SBO (small bowel obstruction) 09/14/2020 Hiatal hernia 09/01/2020 Overview (09/01/2020): Added automatically from request for surgery [id number] CUMMINS (dyspnea on exertion) Encounters Date Type Department Care Team Description 12/04/2024 7:19 AM CDT - 12/04/2024 11:59 PM CDT Hospital Encounter [facility] Medicine Pulmonary [address] [facility] [address] [place] [phone] Restrictive lung disease; CUMMINS (dyspnea on exertion) Discharge Disposition: Discharge to home or self care 11/24/2024 10:10 AM CDT Lab [address] [phone] Chronic diastolic heart failure (HCC); Prediabetes; Severe obesity (BMI 35.0-35.9 with comorbidity) (HCC) 11/24/2024 9:30 AM CDT Office Visit [facility] Cardiology [address] [place] [address] [place] [phone] Travon Bolaños MD Chronic diastolic heart failure (HCC) (Primary Dx); Restrictive lung disease; CUMMINS (dyspnea on exertion); Nonobstructive atherosclerosis of coronary artery; Essential hypertension; Acute deep vein thrombosis (DVT) of proximal vein of right lower extremity (HCC); History of deep vein thrombosis (DVT) of lower extremity; LENO on CPAP 11/24/2024 Results Follow-Up [facility]iology [address] [place] [phone] Travon Bolaños MD Thyroid Function [place], Pro B-type natriuretic peptide, CBC with auto differential, Additional followed-up results: 4 11/11/2024 Telephone [facility]iology [address] [facility] [address] [place] [address] Travon Bolaños MD 11/06/2024 9:30 AM CDT Office Visit [facility] [address] [facility] [address] [place] [address] Pinky Dunlap MD LENO on CPAP (Primary Dx); Hypersomnia; Severe obesity (BMI 35.0-35.9 with comorbidity) (HCC) from Last 3 Months Surgical History Surgery Date Site/Laterality Comments CHOLECYSTECTOMY HERNIA REPAIR Medical History Medical History Date Comments Hypertension Hyperlipidemia Covid-19 11/2019 Hiatal hernia GERD (gastroesophageal reflux disease) Sleep apnea uses C pap CHF (congestive heart failure) ([facility]) CKD (chronic kidney disease) stage 3, GFR 30-59 ml/min ([facility]) Cardiomegaly Family History Medical History Relation Name [...] on file Legal Sex 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:46 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 Gender Identity Not on file Sexual Orientation Not on file Obstetrics History Last Filed Vital Signs Vital Sign Reading Time Taken Comments Blood Pressure 130/70 11/24/2024 9:35 AM CDT Pulse 65 11/24/2024 9:35 AM CDT Temperature 36.6 C (97.9 F) 02/12/2022 9:13 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 Respiratory Rate 16 11/24/2024 9:35 AM CDT Oxygen Saturation 98% 11/24/2024 9:35 AM CDT Inhaled Oxygen Concentration - - Weight 135.2 kg (298 lb) 11/24/2024 9:35 AM CDT Height 188 cm (6' 2) 11/24/2024 9:35 AM CDT Body Mass Index 38.26 11/24/2024 9:35 AM CDT Plan of Treatment Health Maintenance Due Date Last Done Comments Colon Cancer Screening-Colonoscopy 1955 Depression Screening 1955 Hepatitis C Screening 1955 DTaP/Tdap/Td Vaccine (1 - Tdap) 1965 Hepatitis B Screening 01/24/1972 Pneumococcal vaccine 65+ (1 of 2 - PCV) 1973 Zoster Vaccine (1 of 2) 01/24/2004 Well Visit 65+ 2019 Fall Risk Assessment 04/23/2024 04/23/2023, 10/28/2020, 02/29/2020 Influenza Vaccine (#1) 2024 01/20/2018 Covid-19 Vaccine Discontinued 05/20/2020, 04/29/2020 Procedures Procedure Name Priority Date/Time Associated Diagnosis Comments PULMONARY FUNCTION TEST (PFT) Routine 12/04/2024 7:54 AM CDT Restrictive lung disease CUMMINS (dyspnea on exertion) EGFR Routine 11/24/2024 10:22 AM CDT Chronic diastolic heart failure (HCC) DIFFERENTIAL AUTO Routine 11/24/2024 10: 22 AM CDT Chronic diastolic heart failure (HCC) HEMOGLOBIN A1C Routine 11/24/2024 10:22 AM CDT Prediabetes Severe obesity (BMI 35.0-35.9 with comorbidity) (HCC) COMPREHENSIVE METABOLIC PANEL Routine 11/24/2024 10:22 AM CDT Chronic diastolic heart failure (HCC) CBC WITH AUTO DIFFERENTIAL Routine 11/24/2024 10:22 AM CDT Chronic diastolic heart failure (HCC) PRO B-TYPE NATRIURETIC PEPTIDE Routine 11/24/2024 10:22 AM CDT Chronic diastolic heart failure (HCC) THYROID FUNCTION CASCADE Routine 11/24/2024 10:22 AM CDT Chronic diastolic heart failure (HCC) from Last 3 Months Results * Pulmonary Function Test - (12/04/2024 7:54 AM CDT) FVC PRE 3.84 L [facility] FVC %PRE PRED 82 % [facility] FVC POST 3.99 L [facility] FVC %POST PRED 85 % [facility] FEV1 PRE 2.75 L [facility] FEV1 %PRE PRED 78 % [facility] FEV1 POST 2.98 L [facility] FEV1 %POST PRED 85 % [facility] FEV1/FVC PRE 71.5 % [facility] FEV1/FVC POST 74.5 % [facility] FRC PL PRE 3.[address] [facility] FRC PL %PRE PRED 79 % [facility] RV PRE 3.03 L [facility] RV %PRE PRED 115 % [facility] TLC PRE 6.79 L [facility] TLC %PRE PRED 88 % [facility] DLCO PRE 23.4 ml/min/mmH g [facility] DLCO %PRE PRED 83 % [facility] Anatomical Region Laterality Modality PFT 12/04/2024 7:24 AM CDT Addenda Addendum by Paulo Menjivar MD on 12/07/2024 10:10 AM CDT Pulmonary Function Test Interpretation SPIROMETRY: The FEV1 to FVC ratio is normal. The FEV1 and FVC are reduced in a pattern suggestive of a restrictive abnormality. There is no significant improvement after inhaling a single dose of albuterol. The inspiratory loop is appropriate for the expiratory flow abnormality. LUNG VOLUMES: TLC measured by plethysmography is normal. Overweight status may be the cause of the decreased ERV. DLCO: The diffusing capacity is normal. Note that the value for diffusing capacity is not corrected for hemoglobin and that anemia may decrease the reported value. Impression: There is a non-specific ventilatory defect. There is no impairment of alveolar gas exchange by DLCO. Compared with most recent study, there has been no significant interval change in spirometry. Paulo Menjivar MD The attending pulmonary physician certifies a physician presence in the [facility] during the administration of aerosolized bronchodilator. The attending pulmonary physician certifies that he/she has reviewed and interpreted the graphic and numerical data of this pulmonary function study and agrees with the written final report. The lower limit of normal for PaO2 and %HbO2 is age dependent. However, the [facility] Pulmonary Function Laboratory defines hypoxemia as a PaO2 <56 mm Hg or a %HbO2 <89%. Starting on February of 2024 the [facility] Pulmonary Function Laboratory utilizes race neutral GLI Global normative equations. Narrative 12/04/2024 6:47 PM CDT `PFT performed at:->[facility] Adult PFT Lab- [id number] Procedure:->Complete/Full PFT Standard:->Spirometry, Spirometry w/bronchodilator, DLCO and Lung Volumes Travon Bolaños MD PFT ORDERABLES Edited Result - Final * (ABNORMAL) eGFR (11/24/2024 10:22 AM CDT) eGFR 59(L) >=60 mL/min/1. 73 m2 Comment: Interpretive Data Reference Interval Normal >/= 90 mL/min/1.73m2 Mildly decreased* 60 - 89 mL/min/1.73m2 Mildly to moderately decreased 45 - 59 mL/min/1.73m2 Moderately to severely decreased 30 - 44 mL/min/1.73m2 Severely decreased 15 - 29 mL/min/1.73m2 Kidney Failure < 15 mL/min/1.73m2 *Relative to young adult level Estimated glomerular filtration rate is determined by the 2020 CKD-EPI equation recommended by the National Kidney Foundation (A Unifying Approach to GFR Estimation: Recommendations of the NKF-ASK Task Force on Reassessing the Inclusion of Race in Diagnosing Kidney Disease, JASN 2020). The CKD-EPI equation should not be used for patients with unstable renal function and has not been validated in children and those over 70. Current interpretive data was last reviewed 2020. Testing performed by: [facility], [facility] [address], [place] [address] Blood 11/24/2024 10:2 2 AM CDT 11/24/2024 10:22 AM CDT us Travon Bolaños MD LAB BLOOD ORDERABLES Final Resul t [facility] [address] [address] Department [place] [address] * (ABNORMAL) Differential, auto (11/24/2024 10:22 AM CDT) Neutrophil abs 6.79(H) 1.50 - 6.50 K/cumm Comment:Testing performed by : [facility], [facility] [place] [address] Imm gran abs 0.07 0.00 - 0.10 K/cumm [facility] Comment:Testing performed by : [facility], [address] [place], [place] [address]at[place] [address] Lymphocyte abs 1.14 0.80 - 3.30 K/cumm [facility] Comment:Testing performed by : [facility] [address] [place] [address] [place] [address] Monocyte abs 0.71 0.20 - 0.80 K/cumm [facility] Comment:Testing performed by : [address] [place] [address] Eosinophil abs 0.06 0.00 - 0.50 K/cumm [facility] Comment:Testing performed by : [facility], [address] [place] [address] [place] [address] Basophil abs 0.04 0.00 - 0.10 K/cumm [facility] Comment:Testing performed by : [address] [address] Neutrophil pct 77.0 % [facility] Comment: Interpretive Data Percent cell count reference ranges are not reported, since discordance with absolute values may lead to misinterpretation of CBC data. Current Interpretive Data was last revised on 2017. Testing performed by: [address] [place] [address] Imm gran pct 0.8 % [facility] Comment: Interpretive Data Percent cell count reference ranges are not reported, since discordance with absolute values may lead to misinterpretation of CBC data. Current Interpretive Data was last revised on 2017. Testing performed by: [address] [address] Lymphocyte pct 12.9 % [facility] Comment: Interpretive Data Percent cell count reference ranges are not reported, since discordance with absolute values may lead to misinterpretation of CBC data. Current Interpretive Data was last revised on 2017. Testing performed by: [facility], [address], [place], [place] [address] Monocyte pct 8.1 % [facility] Comment: Interpretive Data Percent cell count reference ranges are not reported, since discordance with absolute values may lead to misinterpretation of CBC data. Current Interpretive Data was last revised on 2017. Testing performed by: [facility], [address], [place], [place] [address] Eosinophil pct 0.7 % [facility] Comment: Interpretive Data Percent cell count reference ranges are not reported, since discordance with absolute values may lead to misinterpretation of CBC data. Current Interpretive Data was last revised on 2017. Testing performed by: [facility], [address] [place] [address] Basophil pct 0.5 % [facility] Comment: Interpretive Data Percent cell count reference ranges are not reported, since discordance with absolute values may lead to misinterpretation of CBC data. Current Interpretive Data was last revised on 2017. Testing performed by: [facility], [address] [place] [address] Blood 11/24/2024 10:2 2 AM CDT 11/24/2024 10:22 AM CDT us Travon Bolaños MD LAB BLOOD ORDERABLES Final Resul t [facility] [address] [address] Department [place] [address] * Pro B-type natriuretic peptide (11/24/2024 10:22 AM CDT) NT-proBNP 42 <=300 pg/mL Comment: Interpretive Comments: A. Dyspnea in Acute Care Setting All Ages: < 300 pg/ml, acute heart failure unlikely. < 50 yrs: 300 - 450 pg/ml, further investigation warranted. > 450 pg/ml, acute heart failure likely. 50 - 74 yrs: 300 - 900 pg/ml, further investigation warranted. > 900 pg/ml, acute heart failure likely . > or = 75 yrs: 450 - 1800 pg/ml, further investigation warranted. > 1800 pg/ml, acute heart failure likely. B. Non-acute Setting < 75 yrs < 125 pg/ml, rules out heart failure. > or = 125 pg/ml, further investigation warranted. > or = 75 yrs < 450 pg/ml, rules out heart failure. > or = 450 pg/ml, further investigation warranted. - Knowledge of each individual patient's NT-proBNP range may be more useful than using similar cut-points for every patient. Please note that marked elevations in NT-proBNP levels may be observed in state other than Left Ventricular Congestive Failure, including: acute coronary syndromes, right heart strain/failure (including pulmonary embolism and cor pulmonale), critical illness, renal failure, as well as advanced age. - References: 1. Remi MUSA et.al. Eur Heart J. 2006:27:330-337. 2. Angela RW, Deny AM. J. AM Tye Cardiol: Cardiovasc Imag. 2009;2: 216- 225. Interpretive Data Last Revised Date: 2017. Testing performed by: [facility], [place] [address] Blood 11/24/2024 10:2 2 AM CDT 11/24/2024 10:22 AM CDT Travon Bolaños MD LAB BLOOD ORDERABLES Final Resul t Performing Organization Address [facility] Phone Number [facility] [address] [address] Department [place] [address] * Thyroid Function [place] (11/24/2024 10:22 AM CDT) TSH 1.63 0.30 - 4.20 mcIUnit/mL Comment:Testing performed by : [facility], [place] [address] Blood 11/24/2024 10:2 2 AM CDT 11/24/2024 10:22 AM CDT Travon Bolaños MD LAB BLOOD ORDERABLES Final Resul t [facility] [address] [address] Department [place] [address] * (ABNORMAL) CBC with auto differential (11/24/2024 10:22 AM CDT) WBC 8.81 3.80 - 9.90 K/cumm Comment:Testing performed by : [facility] [place] [address] Hgb 15.4 13.0 - 17.5 g/dL [facility] Comment:Testing performed by : [facility] [place] [address] Hct 45.6 38.9 - 50.3 % [facility] Comment:Testing performed by : [facility] [address], [place] [address] Plt 214 150 - 400 K/cumm [facility] Comment:Testing performed by : [facility] [place] [address] MPV 10.5 9.1 - 12.3 fL [facility] Comment:Testing performed by : [facility] [place] [address] RBC 4.69 4.30 - 5.80 M/cumm [facility] Comment:Testing performed by : [facility] [place] [address] MCV 97.2(H) 81.3 - 96.4 fL [facility] Comment:Testing performed by : [facility] [place] [address] MCH 32.8 27.1 - 33.3 pg [facility] Comment:Testing performed by : [facility] [place] [address] MCHC 33.8 32.3 - 35.7 g/dL [facility] Comment:Testing performed by : [facility] [place] [address] RDW CV 13.2 11.1 - 14.9 % [facility] Comment:Testing performed by : [facility] [place] [address] RDW SD 46.6 35.7 - 48.1 fL [facility] Comment:Testing performed by : [facility] [place] [address] NRBC abs 0.00 0.00 - 0.01 K/cumm [facility] Comment:Testing performed by : [facility], [place] [address] Blood 11/24/2024 10:2 2 AM CDT 11/24/2024 10:22 AM CDT Result [facility] Travon Bolaños MD LAB BLOOD ORDERABLES Final Resul t Performing Organization Address [facility] Phone Number [facility] [address] [address] [facility] [place] [address] * Hemoglobin A1c (11/24/2024 10:22 AM CDT) Hgb A1C 5.5 4.0 - 5.6 % Estimated Average Glucose 111 mg/dL [facility] Comment: The ADA recommends reporting an estimated Average Glucose (eAG) with all Hemoglobin A1c results using the equation derived from a study of 507 normal and diabetic adults. Minority populations were underrepresented and children were not included. (Diabetes Care 31:0550-2741, 2008). The eAG is not equivalent to a fasting glucose. Blood 11/24/2024 10:2 2 AM CDT 11/24/2024 3:25 PM CDT Result [facility] Travon Bolaños MD LAB BLOOD ORDERABLES Final Resul t Performing Organization Address [facility] Phone Number [facility] [address] [place] [address] * (ABNORMAL) Comprehensive metabolic panel (11/24/2024 10:22 AM CDT) Sodium 140 135 - 145 mmol/L Comment:Testing performed by : [facility] [address], [place] [address] Potassium, pl 4.2 3.3 - 4.9 mmol/L [facility] Comment:Testing performed by : [facility] [address], [place] [address] Chloride 103 97 - 110 mmol/L [facility] Comment:Testing performed by : [facility] [address], [place] [address] CO2 26 22 - 32 mmol/L [facility] Comment:Testing performed by : [facility] [place] [address] Anion gap 11 2 - 15 mmol/L [facility] Comment:Testing performed by : [facility] [place] [address] BUN 33(H) 6 - 25 mg/dL [facility] Comment:Testing performed by : [facility] [place] [address] Creatinine 1.30 0.80 - 1.30 mg/dL [facility] Comment:Testing performed by : [facility] [place] [address] Glucose 74 70 - 199 mg/dL [facility] Comment: Interpretive Data Fasting glucose >/= 126 mg/dl is diagnostic for diabetes. Fasting is defined as no caloric intake for at least 8 hours. Fasting glucose between 100 mg/dl to 125 mg/dl is diagnostic of prediabetes. In a patient with classic symptoms of hyperglycemia or hyperglycemic crisis, a random glucose >/= 200 mg/dl is diagnostic for diabetes. In the absence of unequivocal hyperglycemia, results should be confirmed by repeat testing. The classification and Diagnosis of Diabetes Diabetes Care 2021; 46: S19-S40. Current interpretive data was last revised 2022. Testing performed by: [facility] [place] [address] Calcium 10.0 8.5 - 10.3 mg/dL [facility] Comment:Testing performed by : [facility] [place] [address] Bilirubin, total 1.0 0.1 - 1.2 mg/dL [facility] CH Comment:Testing performed by : [facility] [place] [address] Protein, pl 7.0 6.5 - 8.5 g/dL [facility] CH Comment:Testing performed by : [facility] [place] [address] Albumin 4.1 3.5 - 5.0 g/dL [facility] CH Comment:Testing performed by : [facility] [place] [address] Alk phos 89 40 - 130 Units/L [facility] CH Comment:Testing performed by : [facility] [place] [address] ALT 22 7 - 55 Units/L [facility] CH Comment:Testing performed by : [facility] [place] [address] AST 22 10 - 50 Units/L [facility] BERRIOS Comment:Testing performed by : [facility], [place] [address] Blood 11/24/2024 10:2 2 AM CDT 11/24/2024 10:22 AM CDT us Travon Bolaños MD LAB BLOOD ORDERABLES Final Resul t [facility] [address] [address] Department [place] [address] from Last 3 Months Insurance MEDICARE MEDICARE [facility] MEDICARE SUPPLEMENT MEDICARE [facility] MEDICARE SUPPLEMENT Member Subscriber Plan / Payer (Ef fective 2023-) Name:Fred Salinas Relation to Subscriber:Self Name:Fred Salinas Payer ID:[id number] Group ID:[id number] Type:COMMERCIAL Address: [address] MEDICARE SUPPLEMENT INSURANCE Advance Directives For more information, please contact: [phone] * Full Code (Latest Code Status on File) Date Activated Date Inactivated Comments 10/26/2020 2:44 PM 10/28/2020 9:02 PM * Full Code Date Activated Date Inactivated Comments 09/14/2020 11:49 PM 09/17/2020 8:46 PM Care Teams Truck Hopper Relationship Specialty Start Date End Date LeightondemarcuskseniaTheresa DO PCP - General Family Medicine 02/11/20 Cecelia Conley MD Surgeon Cardiothoracic Surgery 10/28/20 Travon Bolaños MD [address] [facility] [address] [place] [address] Consulting Physician Cardiology 11/26/23
--- OUTSIDE RECORDS SUMMARY | 2024-12-26 22:40 | XMS_ITS | Clinical Summary ---
Author Organization [facility] (Formerly [facility]) Shelley palmer Sarah Address [address] [place] [address] Care Team Providers Care Container Coordinator Name Role Phone Theresa Hicks DO Primary Care Provider [phone] Encounters Date Type Department Care Team Description 12/16/2024 Orders Only [facility] ([facility] Oncology and Hematology - [place] [place] [address] Prabhjot Rodriguez MD from Last 3 Months Social History Tobacco Use Types Packs/Day Years Used Date Smoking Tobacco: Never Assessed Sex and Gender Information Value Date Recorded Sex Assigned at Not on file Legal Sex Male 11:58 AM CDT Gender Identity Not on file Sexual Orientation Not on file Plan of Treatment Upcoming Encounters Date Type Department Care Team (Late st Contact Info) Description 03/17/2025 10:30 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 Office Visit [facility] ([facility] Oncology and Hematology [facility] [address] [place] [address] Prabhjot Rodriguez MD [address] [place] [address] Health Maintenance Due Date Last Done Comments DTAP/TDAP/TD VACCINES (1 - Tdap) 1973 COLORECTAL SCREENING 1999 Colorectal Cancer Screening 1999 FIT-DNA Q 3 years 1999 FIT/FOBT Q 1 year 1999 Flex Sig/CT Colonography Q 5 years 1999 PNEUMOCOCCAL VACCINE 50+ YEARS (1 of 1 - PCV) 01/24/20 04 ZOSTER VACCINE (1 of 2) 01/24/2004 INFLUENZA VACCINE (#1) 2024 RSV VACCINE (60+ or ) (1 - 1-dose 75+ series) 2029 Procedures Procedure Name Priority Date/Time Associated Diagnosis Comments CT ABDOMEN PELVIS W CONTRAST Routine 12/13/2024 9:12 AM CDT from Last 3 Months Results * CT ABDOMEN PELVIS W CONTRAST (12/13/2024 9:12 AM CDT) Anatomical Region Laterality Modality Abdomen Computed Tomogra phy Prabhjot Rodriguez MD CT ORDERABLES Final Result from Last 3 Months Insurance MEDICARE PART A AND B BCBS SUPP Care Teams Container Coordinator Relationship Specialty Start Date End Date Theresa Hicks DO [address] [facility] [address] [place] [address] PCP - General Family Practice 12/14/24
[2024-12-26 22:46] VITALS: BP 155/73; PULSE 78; RESP 18; TEMP 37; O2SAT 99
--- OUTSIDE RECORDS SUMMARY | 2024-12-27 00:22 | XMS_ITS | Clinical Summary ---
Author Organization [facility] Jessica utisyl Address [address] [place] [id number] Phone Care Team Providers Care Slip Cover Sewer Name Role Phone Theresa Hicks MD Primary Care Provider [phone] Allergies Active Allergy Reactions Criticality Noted Date [...] 01/24/2004 Influenza Vaccine (#1) 2024 Insurance MEDICARE [facility] Care Teams Slip Cover Sewer Relationship Specialty Start Date End Date Theresa Hicks MD [address] [place] [address] PCP - General Family Medicine 07/01/20
--- OUTSIDE RECORDS SUMMARY | 2024-12-27 00:22 | XMS_ITS | Clinical Summary ---
Author Organization [facility] Address [address] [place] [address] Care Team Providers Care Excel Expert Name Role Phone Abdiaziz Wisdom MD Primary Care Provider [phone] Source Comments [facility],non-owned Affiliates and Associated Physician Practices is amultiple site organization consisting of ambulatory clinics and hospital sitesin [place], [place], [place] and [place]. This disclosure is being madepursuant to the Care Everywhere program and may not contain all information available regarding this patient. 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
--- OUTSIDE RECORDS SUMMARY | 2024-12-27 00:22 | XMS_ITS | Clinical Summary ---
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
--- NOTE | 2024-12-27 00:50 | ED.SKABFB ---
HPI - Skin/Abscess/Foreign Bdy General Chief complaint: Skin/Abscess/Foreign Body Stated complaint: RUPTURED BLOOD BLISTER Time Seen by Provider: 12/26/24 23:55 History of Present Illness HPI narrative: Patient is a 69-year-old male who presents to the ER with ?blood blisters on his abdomen. He reports he 1st noticed these spots a couple of days ago. Patient reports he was diagnosed with a DVT in mid November and was placed on Lovenox. He reports he is supposed to switch to Eliquis in approximately 2 weeks. Patient reports the injections sites are not at the same places of his blood blisters. He reports he has 3 on his abdomen, 1 of which burst earlier today. Patient also has one on his right forearm. He denies any pain to the sites. Patient reports he was concerned because a large 1 on his abdomen burst earlier today and was bleeding excessively prior to arrival. Patient endorses a history of a DVT and chronic kidney disease. Related Data Home Medications ?Medication ?Instructions ?Recorded ?Confirmed ?Last Taken ?Type spironolactone 25 mg tablet 25 mg PO DAILY 06/20/20 12/22/24 12/13/24 History atorvastatin 40 mg tablet 40 mg PO QAM 04/27/22 12/22/24 12/13/24 History sacubitril 97 mg-valsartan 103 mg 1 tablet PO BID 09/21/22 12/22/24 12/13/24 History tablet (Entresto) empagliflozin 10 mg tablet 10 mg PO DAILY 07/11/23 12/22/24 12/13/24 History (Jardiance) cholecalciferol (vitamin D3) 50 50 mcg PO QPM 11/15/23 12/22/24 12/12/24 History mcg (2,000 unit) tablet furosemide 40 mg tablet 40 mg PO DAILY 03/06/24 12/22/24 12/13/24 History semaglutide 2 mg/dose (8 mg/3 mL) 2 mg subcut WEEKLY 05/02/24 12/22/24 12/05/24 History subcutaneous pen injector (Ozempic) calcium carbonate 600 mg PO QPM 12/13/24 12/22/24 12/12/24 History Allergies Allergy/AdvReac Type Severity Reaction Status Date / Time lisinopril AdvReac Unknown cough Verified 12/26/24 22:48 Review of Systems Review of Systems: All systems reviewed & are unremarkable except as noted in HPI and below [facility] Past Medical History Medical History Hepatitis C antibody test negative (01/08/17) Diastolic congestive heart failure History of cardiac disorder Positive colorectal cancer screening using Cologuard test Arthritis History of blood clots LLE DVT 2010 High cholesterol HTN (hypertension) Chronic kidney disease, stage 3 (moderate) Hypertensive chronic kidney disease with stage 1 through stage 4 chronic kidney disease, or unspecified chronic kidney disease Surgical History Surgical History Hx of cholecystectomy (~1999) History of hernia repair Family History Family History Father Hypertension Family history of elevated blood lipids Family history of cardiovascular disease, Onset Age: 86 Mother Hypertension Family history of kidney disease Familial primary pulmonary hypertension Grandparent Diabetes mellitus Social History Social History Smoking status: Never smoker Second hand tobacco smoke exposure: No Alcohol intake: never Substance use: never Lack of Transportation: No Lack of Food: Never True Current Housing: I Have Housing Concerned About Future Housing: No Difficulty Paying Gas/Electric Bills: No Difficulty Paying for Meds: No Currently Unemployed: No Education: Associate Degree Difficulty w/ Childcare or Family Care: No Living arrangements: with family Gender identity (if verbalized by the patient): Male Sexual Orientation (if Verbalized by the Patient): Straight or Heterosexual Spiritual care concerns: No Exam Narrative: GENERAL: Well appearing, obese, non-toxic, in no acute distress. HEAD: Normocephalic, atraumatic. NECK: Supple. No adenopathy, no masses. RESPIRATORY: Airway patent, respirations nonlabored. Clear to auscultation bilaterally, no rales, rhonchi, wheezing. CARDIOVASCULAR: Regular rate and rhythm without murmurs, rubs, or gallops. Peripheral pulses 2+ and equal bilaterally. ABDOMINAL: Soft, nontender, nondistended, no hepatosplenomegaly. Normoactive BS. Two blood blisters (one dime-sized, one pencil eraser-sized) on lower abdomen. One site of previous blister already ruptured. MUSCULOSKELETAL: Moves all extremities. Strength/ROM intact without gross deformities. SKIN: Warm, dry, normal color. No rashes. NEURO: A&O X3. Speech clear. Cranial nerves II-XII intact. No ataxic movements. PSYCHIATRIC: Appropriate mood and affect. Normal interaction. Course Vital Signs Vital signs: Vital Signs Temperature 37.0 C 12/26/24 22:46 Pulse Rate 78 12/26/24 22:46 Respiratory Rate 18 12/26/24 22:46 Blood Pressure 155/73 H 12/26/24 22:46 Pulse Oximetry 99 12/26/24 22:46 Oxygen Delivery Room Air 12/26/24 22:46 Temperature 37.0 C 12/26/24 22:46 Pulse Rate 78 12/26/24 22:46 Respiratory Rate 18 12/26/24 22:46 Blood Pressure 155/73 H 12/26/24 22:46 Pulse Oximetry 99 12/26/24 22:46 Oxygen Delivery Room Air 12/26/24 22:46 MDM - Skin/Abscess/Foreign Bdy MDM Narrative Medical decision making narrative: Patient is a 69-year-old male who presents to the ER with ?blood blisters on his abdomen. He reports he 1st noticed these spots a couple of days ago. Patient reports he was diagnosed with a DVT in mid November and was placed on Lovenox. He reports he is supposed to switch to Eliquis in approximately 2 weeks. Patient reports the injections sites are not at the same places of his blood blisters. He reports he has 3 on his abdomen, 1 of which burst earlier today. Patient also has one on his right forearm. He denies any pain to the sites. Patient reports he was concerned because a large 1 on his abdomen burst earlier today and was bleeding excessively prior to arrival. Patient endorses a history of a DVT and chronic kidney disease. Labs Ordered: CBC, CMP, PTT, INR Imaging Ordered: None necessary Medications Ordered: None necessary Results: Patient's CMP indicates a BUN of 42, GFR 57, an ALT of 61. His coags indicated a PT of 13.7, APTT of 42.2 seconds, and INR 1.1. Diagnosis: bullous hemorrhagic dermatosis Consults: Hematology (outpatient), already established with Dr. Rodriguez. Patient Education/Shared MDM: Results of lab work shared with patient. 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 He will be advised to switch from further Lovenox SQ to Elliquis PO. Patient will also be prescribed Mupirocin cream to place on the open blister 3 times a day. Strict return precautions provided. Patient verbalized understanding and is in agreement with plan. Vital signs stable at time of discharge. All questions answered. Differential Diagnosis Differential diagnosis: Likely urticaria, allergic reaction to drug and other (Bullous hemorrhagic dermatosis) Lab Data Attestation: I reviewed the patient's lab results. 12/27/24 01:15 MACHINIST MECHANIC 12/27/24 01:15 MACHINIST MECHANIC Labs: Lab Results 12/27/24 Range/Units 01:15 MACHINIST MECHANIC WBC 7.6 (4.5-10.0) K/mm3 RBC 4.50 L (4.6-6.20) M/mm3 Hgb 14.7 (14.0-18.0) g/dL Hct 44.1 (42.0-52.0) % MCV 98.0 (80-100) fl MCH 32.7 (26-34) pg MCHC 33.3 (32-36) g/dl RDW 13.6 (11.5-14.5) % Plt Count 223 (150-375) k/mm3 MPV 10.4 (7.4-10.4) fl Immature Gran % (Auto) 1.5 H (0-0.5) % Neut % (Auto) 67.9 (45.5-73.1) % Lymph % (Auto) 18.5 (18.3-44.2) % [place] % (Auto) 10.2 H (2.6-8.5) % Eos % (Auto) 1.1 (0-4.4) % Baso % (Auto) 0.8 (0.2-1.2) % Lymph # (Auto) 1.40 (0.9-3.2) K/mm3 [place] # (Auto) 0.8 H (0.1-0.6) K/mm3 Eos # (Auto) 0.1 (0-0.3) K/mm3 Baso # (Auto) 0.1 (0.0-0.1) K/mm3 Abs Immat Gran (auto) 0.11 H (0.00-0.031) K/mm3 Absolute Neuts (auto) 5.2 (1.3-6.7) K/mm3 Absolute Nucleated RBC 0.000 (0.0-0.012) K/mm3 Nucleated RBC % 0.0 (0.0-0.2) % PT 13.7 (11.1-14.7) Seconds INR 1.1 APTT 42.2 H (22.3-36.8) Seconds Sodium 137 (137-145) mmol/L Potassium 4.8 (3.4-5.0) mmol/L Chloride 107 (98-107) mmol/L Carbon Dioxide 22 (22-30) mmol/L Anion Gap 8 (4-12) mmol/L BUN 42 H D (9-20) mg/dL Creatinine 1.26 (0.7-1.3) mg/dL Estim Creat Clear Calc Not Reportable Estimated GFR 57 L (59 - ) Glucose 107 (65-110) mg/dL Calcium 9.9 (8.4-10.2) mg/dL Total Bilirubin 1.1 (0.2-1.3) mg/dL AST 27 (17-59) U/L ALT 61 H (6-50) U/L Alkaline Phosphatase 61 (38-126) U/L Total Protein 7.1 (6.3-8.2) g/dL Albumin 4.2 (3.5-5.1) g/dL Discharge Plan Discharge Clinical Impression: Adverse reaction to drug in therapeutic use, Blood blister, Hematoma of abdominal wall, Bullous dermatitis, History of blood clots Patient Disposition: Home Condition: Stable Instructions: Antibiotic Form, Blood Thinners (ED) Additional Instructions: Please return to the ER with any worsening symptoms. Your blood work results were very reassuring today. Follow-up with your welding machine operator resistance as soon as possible. Please refrain from further Lovenox administration. Instead please begin taking your Eliquis by mouth. You may place Mupirocin cream on the site of the open blister 3 times a day. Please keep that site covered. If one of the blisters begins bleeding please apply pressure to the site. Patient Language: Mongolian Prescriptions: New mupirocin [Centany] 2 % ointment 1 applic topical TID Qty: 22 0RF No Action Ozempic 2 mg/dose (8 mg/3 mL) pen injector 2 mg SUBCUT WEEKLY Patient Comments: Pt. takes on Saturdays spironolactone 25 mg tablet 25 mg PO DAILY atorvastatin 40 mg tablet 40 mg PO QAM Entresto 97-103 mg tablet 1 tablet PO BID Jardiance 10 mg tablet 10 mg PO DAILY sildenafil 100 mg tablet 100 mg PO DAILY PRN (Reason: sexual activity) Qty: 20 0RF Rx Instructions: administer 30 minutes to 4 hours before activity cholecalciferol (vitamin D3) 50 mcg (2,000 unit) tablet 50 mcg PO QPM furosemide 40 mg tablet 40 mg PO DAILY calcium carbonate 600 mg calcium (1,500 mg) tablet 600 mg PO QPM enoxaparin [Lovenox] 100 mg/mL Syringe 95 mg subcut Q12HR 28 Days Qty: 53.2 0RF enoxaparin [Lovenox] 40 mg/0.4 mL Syringe 40 mg subcut Q12HR 28 Days Qty: 22.4 0RF Eliquis 5 mg tablet 5 mg PO BID Qty: 60 0RF Rx Instructions: Start 5 mg twice a day after completing the lovenox course. Follow-up/Referrals: Prabhjot Rodriguez MD [Physician, Hematology] Theresa Hicks DO [Primary Care Provider, Family Practice] Time of Disposition: 02:16
[2024-12-27 01:24] LABS: Hematocrit 44.1 % (42.0-52.0); Hemoglobin 14.7 g/dL (14.0-18.0); Immature Granulocyte Percent A 1.5 % (0-0.5); Lymphocytes Absolute Auto 1.40 K/mm3 (0.9-3.2); Mean Corpuscular HGB Conc 33.3 g/dl (32-36); Mean Corpuscular Hemoglobin 32.7 pg (26-34); Mean Corpuscular Volume 98.0 fl (80-100); Nucleated Red Blood Cells Absolute Auto 0.000 K/mm3 (0.0-0.012); Nucleated Red Blood Cells Perc 0.0 % (0.0-0.2); Platelet Count Result 223 k/mm3 (150-375); Red Blood Count 4.50 M/mm3 (4.6-6.20); White Blood Count 7.6 K/mm3 (4.5-10.0)
[2024-12-27 01:40] LABS: Alanine Aminotransferase 61 U/L (6-50); Albumin Level 4.2 g/dL (3.5-5.1); Alkaline Phosphatase 61 U/L (38-126); Anion Gap 8 mmol/L (4-12); Aspartate Amino Transferase 27 U/L (17-59); Bilirubin,Total 1.1 mg/dL (0.2-1.3); Blood Urea Nitrogen 42 mg/dL (9-20); Calcium 9.9 mg/dL (8.4-10.2); Carbon Dioxide 22 mmol/L (22-30); Chloride 107 mmol/L (98-107); Estimated Glomerular Filt Rate 57; Glucose 107 mg/dL (65-110); Potassium 4.8 mmol/L (3.4-5.0); Sodium 137 mmol/L (137-145); Total Protein 7.1 g/dL (6.3-8.2)
[2024-12-27 01:41] LABS: INR 1.1; Prothrombin Time 13.7 Seconds (11.1-14.7)
[2024-12-27 01:43] LABS: Partial Thromboplastin Time 42.2 Seconds (22.3-36.8)
== END 2024-12-27 02:22 | disposition home or self-care (01) ==
PROVIDERS: Emergency Provider Registered Nurse; PCP Family Medicine
DX: L27.0 Generalized skin eruption due to drugs and medicaments taken internally (principal); L13.9 Bullous disorder, unspecified; T45.515A Adverse effect of anticoagulants, initial encounter
CPT/HCPCS: 36415; 80053; 85025; 85610; 85730; 99283